=== PATIENT | male | born 1945 | race Caucasian/White ===

== ENCOUNTER 2018-11-04 10:21 | Observation (INO) | payer MEDICARE, SELFPAY ==
[2018-11-04] VITALS (13 sets, daily range): BP systolic 116–188; BP diastolic 64–83; PULSE 63–89; RESP 13–20; TEMP 36.4–36.8; O2SAT 92–99; BMI 27.0
--- NOTE | 2018-11-04 | DI.ECHO.S_ITS ---
[facility] +---------+ : : [address] : : : : [id number] : : : : Phone: [phone]+ Echocardiogram Report + + :Name: JOE MARKHAM Study Date: 11/05/2018 Height: 72 in : :[facility] Exam Location: IS Weight: 199 lb : : Gender: Male BSA: 2.1 m2 : :: 1945 Age: 73 yrs BP: 141/81 mmHg: :Reason For Study: CHEST PAIN : : Performed By: Del Grossman : :Referring: CAMERON OCASIO : + + Interpretation Summary The left ventricle is normal in size. The ejection fraction is estimated to be 60-65%. There are no focal wall motion abnormalities. The right ventricle is normal in size and function. The right ventricular systolic pressure is estimated to be at least 24 mmHg based on an estimated right atrial pressure of 3 mm Hg. There is mild to moderate aortic regurgitation. The ascending aorta is mildly enlarged. There is no prior echocardiogram noted for this patient. Procedure: A two-dimensional transthoracic echocardiogram with color flow and Doppler was performed. The study quality was technically adequate. There is no prior echocardiogram noted for this patient. The patient was in normal sinus rhythm during the exam. Left Ventricle: The left ventricle is normal in size. There is normal left ventricular wall thickness. The ejection fraction is estimated to be 60-65%. There are no focal wall motion abnormalities. Diastolic parameters suggest a relaxation abnormality of the left ventricle, consistent with probable normal filling pressures. Right Ventricle: The right ventricle is normal in size and function. Atria: The left atrium is mildly dilated. Right atrial size is normal. There is no Doppler evidence for an interatrial shunt. Mitral Valve: The mitral valve is normal in structure and function. There is no mitral valve stenosis. There is mild mitral regurgitation. Aortic Valve: The aortic valve is trileaflet. The aortic valve opens well. There is no aortic valve stenosis. There is mild to moderate aortic regurgitation. There is an eccentric jet of aortic insufficiency directed against the anterior mitral leaflet. Tricuspid Valve: The tricuspid valve is normal in structure and function. There is trace tricuspid regurgitation. The right ventricular systolic pressure is estimated to be at least 24 mmHg based on an estimated right atrial pressure of 3 mm Hg. Pulmonic Valve: The pulmonic valve is normal in structure and function. There is trace pulmonic regurgitation. Great Vessels: The aortic root is normal size. The ascending aorta is mildly enlarged. The aortic arch is mildly enlarged. The pulmonary artery is normal size. The IVC is of normal diameter and collapses greater than 50% with a sniff. This suggests a low right atrial pressure of 3 mm Hg. Pericardium/ Pleura There is no pericardial effusion. There is no pleural effusion. MMode/2D Measurements & Calculations LVIDd: 4.1 cm LVOT diam: 2.7 cm LVIDs: 3.1 cm Ao root diam: 4.0 cm FS: 23.2 % Aortic Jxn: 3.0 cm EPSS: 2.0 cm asc Aorta Diam: 3.9 cm IVSd: 1.5 cm Ao Arch Diam (Prox Trans): 3.2 cm LVPWd: 1.2 cm LV tanner. diameter/BSA (cm/m^2): 1.9 LV sys. diameter/BSA (cm/m^2): 1.5 LA dimension: 4.8 cm RA long axis: 4.8 cm LA A2 area: 25.1 cm2 RA area: 18.5 cm2 LA A4 area: 25.5 cm2 RA vol: 60.0 ml LA length (vol): 6.9 cm RA : 28.2 ml/m2 LA vol: 78.7 ml IVC diam: 2.1 cm LA vol index: 37.0 ml/m2 RVD1 (basal): 3.4 cm RVD2 (mid): 3.9 cm Doppler Measurements & Calculations Ao V2 max: 147.0 cm/sec LVOT Max Reid: 98.6 cm/sec Ao V2 mean: 112.2 cm/sec LV V1 max P.9 mmHg Ao max P.6 mmHg LV V1 VTI: 19.7 cm Ao mean P.3 mmHg ANIBAL(I,D): 3.4 cm2 Ao V2 VTI: 31.7 cm ANIBAL(V,D): 3.7 cm2 sev ratio: 0.62 ANIBAL indexed to BSA (cm^2/m^2): 1.6 AI P1/2t: 833.6 msec AI dec slope: 148.8 cm/sec2 MV E max reid: 32.0 cm/sec TR max reid: 228.7 cm/sec MV A max reid: 61.0 cm/sec TR max P.9 mmHg MV E/A: 0.52 PA V2 max: 64.9 cm/sec Med Peak E' Reid: 3.9 cm/sec PA V2 mean: 47.0 cm/sec E/E' med: 8.1 PA mean P.98 mmHg Lat Peak E' Reid: 6.8 cm/sec PA pr(Accel): 49.1 mmHg E/E' lat: 4.7 E/e' average: 6.4 MV dec time: 0.12 sec SV([facility]): 108.9 ml Electronically signed by: Song Haines M.D. on Reading Physician:11/05/2018 01:45 PM
--- NOTE | 2018-11-04 10:33 | DI.RAD.S_ITS ---
PROCEDURE: XR CHEST 1V INDICATIONS: chest pain TECHNIQUE: One view of the chest was acquired. COMPARISON: [facility], , CHEST 2 VIEW, 08/04/2013, 12:30. FINDINGS: Surgical changes and devices: None. Lungs and pleura: Lungs are clear. No pleural effusions or pneumothorax. Mediastinum: Mediastinal contours appear normal. Heart size appears borderline enlarged. Bones and chest wall: No suspicious bony lesions. Overlying soft tissues appear unremarkable. IMPRESSION: 1. No definite acute cardiopulmonary disease. 2. Borderline enlargement of the heart contours which may be due to portable technique. Dictated by: Ernie Petty M.D. on 11/04/2018 at 11:39 Approved by: Ernie Petty M.D. on 11/04/2018 at 11:40
[2018-11-04] MEDS: ASPIRIN 81 MG TAB 324 MG PO (10:35)
--- NOTE | 2018-11-04 10:44 | ED.CHESTPAIN ---
HPI - Chest Pain General Chief Complaint: Chest Pain Stated Complaint: chest pain,sweating,almost fainted Time Seen by Provider: 11/04/18 10:34 Source: patient Mode of arrival: ambulatory Limitations: no limitations History of Present Illness HPI narrative: 73-year-old male comes to the emergency department with complaint of chest pressure that started about 930 this morning. Patient states he felt like he got hit in the chest he had pain in his anterior chest it did not radiate elsewhere. It was substernal. He felt short of breath, dizzy and got very sweaty. He lasted about 20 minutes and then started to ease. He works at a [employer] he has been working 12-13 hour days for the last 20 days in a row. He was carryng some 3, 4 x 12 boards which were somewhat heavy per patient. Patient states that he still feels a little sore in his chest but the shortness of breath in all the other symptoms have resolved. He does take lisinopril 40 mg, simvastatin 20 mg and hydrochlorothiazide 12.5 mg daily. He does not take an aspirin daily. He has never had a stress test or heart catheterization. 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 Patient does not smoke, he does not drink alcohol or use any illicit drugs. He does not have any siblings, his dad at the age 89 from congestive heart failure and his mom stated age 96. [address] Ash for his primary care. Related Data Home Medications Medication Instructions Recorded Confirmed multivitamin 1 tab PO DAILY #0 03/11/07 11/04/18 CoQ-10 300 mg PO DAILY 11/04/18 11/04/18 Collagen 500 mg PO DAILY 11/04/18 11/04/18 Fish Oil 1,400 mg PO DAILY 11/04/18 11/04/18 ascorbic acid (vitamin C) [Vitamin 500 mg PO DAILY 11/04/18 11/04/18 C] cholecalciferol (vitamin D3) 1,000 unit PO DAILY 11/04/18 11/04/18 [Vitamin D3] folic acid 0.4 mg PO DAILY 11/04/18 11/04/18 ginkgo biloba 120 mg PO BID 11/04/18 11/04/18 hydrochlorothiazide 12.5 mg PO DAILY 11/04/18 11/04/18 lisinopril 40 mg PO QPM 11/04/18 11/04/18 omeprazole 20 mg PO Q OTHER DAY 11/04/18 11/04/18 simvastatin 20 mg PO QPM 11/04/18 11/04/18 turmeric 450 mg PO DAILY 11/04/18 11/04/18 Allergies Allergy/AdvReac Type Severity Reaction Status Date / Time No Known Drug Allergies Allergy Verified 11/04/18 10:31 Review of Systems Review of Systems ROS Unobtainable: All systems reviewed & are unremarkable except as noted in HPI and below Constitutional Denies chills, Reports excessive sweating, Denies fever(s), Denies lethargy and Denies weakness Cardiovascular Reports chest pain, Reports diaphoresis, Denies syncope, Denies edema, Denies irregular heart rhythm, Reports lightheadedness, Denies radiating jaw, neck or arm pain, Denies palpitations, Reports dyspnea, Denies dyspnea on exertion and Denies orthopnea Respiratory Denies change in phlegm color, Denies chest congestion, Denies cough, Reports dyspnea, Denies dyspnea on exertion and Denies wheezing Gastrointestinal Gastrointestinal: Denies abdominal pain, Denies change in bowel habits, Denies diarrhea, Denies nausea and Denies vomiting Musculoskeletal Denies back pain Integumentary/Breasts Denies rash Neurologic Denies syncope and Denies weakness Endocrine Reports excessive sweating and Denies palpitations Allergic/Immunologic Denies wheezing [facility] Medical History Dyslipidemia (Chronic) Finger amputation, 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 HEENT: Head normocephalic, atraumatic, EOMI, pupils reactive, face symmetric, moist mucous membranes NECK: Supple, full range of motion CARDIOVASCULAR: Regular rate and rhythm without murmurs, rubs or gallops. Nontender with palpation of the anterior chest. No rashes or skin changes. RESPIRATORY: Breath sounds equal bilaterally, no wheezes rales or rhonchi. ABDOMEN: Soft, nontender. Normoactive bowel sounds all 4 quadrants. No guarding or rebound, rigidity, no mass : No CVA tenderness EXTREMITIES: Normal range of motion, no clubbing or edema. Neurovascularly intact NEUROLOGICAL: Cranial nerves II through XII grossly intact. Moving all extremities SKIN: Warm, dry, no petechiae, no rashes or lesions. Initial Vital Signs Initial Vital Signs: Vital Signs Temperature 98.2 F 11/04/18 10:21 Pulse Rate 89 11/04/18 10:21 Respiratory Rate 18 11/04/18 10:21 Blood Pressure 173/78 H 11/04/18 10:21 Pulse Oximetry 99 11/04/18 10:21 Scores HEART Score Heart Score history: Highly Suspicious Heart Score EKG: Non-Specific repolarization disturbance Heart Score Age: > or = 65 years old Heart Score risk factors: 1-2 risk factors Heart Score troponin: < or = to normal limit Heart Score Total: 6 Course Orders Ordered: ED Orders 11/04/18 10:33 XR chest 1V Stat EKG-12 Lead Stat 11/04/18 10:41 Complete Blood Count AUTO DIFF Stat Comprehensive Metabolic Panel Stat Lipase Stat Partial Thromboplastin Time Stat Prothrombin Time INR Stat Troponin & CK Cardiac Panel Stat Nitroglycerin (Nitrostat) 0.4 mg SL [id number] PRN PRN Reason: Chest Pain Last Admin: 11/04/18 11:49 Dose: 0.4 mg Admin: 11/04/18 11:20 Dose: 0.4 mg Discontinued Medications Aspirin (Aspirin Chew) 324 mg PO NOW ONE Stop: 11/04/18 10:34 Last Admin: 11/04/18 10:35 Dose: 324 mg Vital Signs - 8 hr 11/04/18 11:20 11/04/18 11:45 11/04/18 11:49 Temperature Pulse Rate 80 84 80 Respiratory Rate Blood Pressure 146/76 H 118/74 188/64 H Blood Pressure [Right Arm] Pulse Oximetry 11/04/18 12:12 11/04/18 12:20 11/04/18 12:44 Temperature Pulse Rate 82 80 73 Respiratory Rate 17 16 Blood Pressure 135/78 Blood Pressure [Right Arm] 126/76 116/75 Pulse Oximetry 95 97 11/04/18 13:09 11/04/18 13:48 11/04/18 15:10 Temperature 97.6 F Pulse Rate 71 69 67 Respiratory Rate 13 18 16 Blood Pressure 124/71 141/81 H Blood Pressure [Right Arm] 121/70 Pulse Oximetry 96 98 92 MDM - Chest Pain Lab Data Attestation: I reviewed the patient's lab results. Result diagrams: 11/04/18 10:41 11/04/18 10:41 Lab Results 11/04/18 11/04/18 11/04/18 Range/Units 10:41 10:41 10:41 WBC 5.3 (4.5-11.0) X10^3/uL RBC 4.43 L (4.5-5.9) X10^6/uL Hgb 14.1 (13.5-17.5) g/dL Hct 41.0 (41-53) % MCV 92.7 (80-100) fL MCH 31.9 (26-34) PG MCHC 34.4 (30-36) % RDW 12.8 (11.6-14.8) % Plt Count 206 (150-400) X10^3/uL Neut % (Auto) 56.3 (50-75) % Lymph % (Auto) 26.7 (25-40) % Sharp % (Auto) 10.8 (3-14) % Eos % (Auto) 5.1 H (2-4) % Baso % (Auto) 1.1 (0-2) % Neut # (Auto) 3000 (0495-1697) /uL Lymph # (Auto) 1400 (4230-0581) /uL Sharp # (Auto) 600 (0-900) /uL Eos # (Auto) 300 (0-450) /uL Baso # (Auto) 100 (0-100) /uL PT 11.6 (10.1-12.7) SECONDS INR 1.0 (0.9-1.3) APTT 22 L (26.4-36.2) SECONDS Sodium 138 (137-145) mmol/L Potassium 3.5 (3.4-5.1) mmol/L Chloride 104 (98-107) mmol/L Carbon Dioxide 26 (22-32) mmol/L BUN 15 (9-20) mg/dL Creatinine 0.80 (0.66-1.25) mg/dL Estimated GFR > 60.0 (>60) mL/min BUN/Creatinine Ratio 18.8 (6-22) Glucose 124 H (80-110) mg/dL Calcium 8.8 (8.4-10.2) mg/dL Total Bilirubin 0.7 (0.2-1.3) mg/dL AST 111 H (17-59) IU/L ALT 56 (21-72) IU/L Alkaline Phosphatase 61 (38-126) U/L Total Creatine Kinase 109 (55-170) U/L CK-MB (CK-2) 2.28 (<2.37) ng/mL CK-MB (CK-2) Rel Index 2.1 (1.5-5.0) % Troponin I < 0.012 (0.01-0.034) ng/mL Total Protein 6.3 (6.3-8.2) g/dL Albumin 3.9 (3.5-5.0) g/dL Globulin 2.4 (1.7-4.1) g/dL Albumin/Globulin Ratio 1.6 (1.0-2.8) Lipase 35 (23-300) U/L Imaging Data Chest x-ray: Radiologist's impression: [address] [address] XRay Report Signed Patient: Paul Vincent LMR#: [id number] : 3Acct:[id number] Age/Sex: 73 / MDate of Service: 11/04/18 Loc: ED Accession Number: [id number] Procedure: XR chest 1V Ordering Provider: Ruby Maria D.O. PROCEDURE: XR CHEST 1V INDICATIONS: chest pain TECHNIQUE: One view of the chest was acquired. COMPARISON: [facility], , CHEST 2 VIEW, 08/04/2013, 12:30. FINDINGS: Surgical changes and devices: None. Lungs and pleura: Lungs are clear. No pleural effusions or pneumothorax. Mediastinum: Mediastinal contours appear normal. Heart size appears borderline enlarged. Bones and chest wall: No suspicious bony lesions. Overlying soft tissues appear unremarkable. IMPRESSION: 1. No definite acute cardiopulmonary disease. 2. Borderline enlargement of the heart contours which may be due to portable technique. Dictated by: Ernie Petty M.D. on 11/04/2018 at 11:39 Approved by: Ernie Petty M.D. on 11/04/2018 at 11:40 ECG Data Attestation: I personally reviewed and interpreted this ECG as follows: Interpretation: Sinus rhythm with first-degree AV block ventricular rate 86 P are interval is 218 QRS is 88 and QTC is 405. No ST elevation is appreciated. Patient has Q-waves in 1 and aVL as well as V2 through V6 patient appears to have some ST depression in V4 V5 MDM Narrative Medical decision making narrative: Spoke with Dr. Henderson, she accepts for chest pain observation. Patient has some ST depression in V 4,5,6. No elevation appreciated. Lots of PVCs. The patient's troponin is negative, he has been chest pain free here during his stay in the department. Initially he was a little sore but that has totally resolved. Patient vital signs have been stable. patient's description of his chest pain, are concerning for cardiac or coronary artery disease. Patient's troponin is negative. Discharge Plan Departure Patient Disposition: Admitted as Observation Clinical Impression: Chest pain Discharge Date/Time: 11/04/18 14:35 Interventions: ED Discharge Assessment Last Done: 11/04/18 13:54 Admit Date/Time: 11/04/18 13:07 Admit Provider: Delicia Henderson
--- NOTE | 2018-11-04 10:50 | ED_ITS ---
HPI - Chest Pain General Chief Complaint: Chest Pain Stated Complaint: chest pain,sweating,almost fainted Time Seen by Provider: 11/04/18 10:34 Source: patient Mode of arrival: ambulatory Limitations: no limitations History of Present Illness HPI narrative: 73-year-old male comes to the emergency department with complaint of chest pressure that started about 930 this morning. Patient states he felt like he got hit in the chest he had pain in his anterior chest it did not radiate elsewhere. It was substernal. He felt short of breath, dizzy and got very sweaty. He lasted about 20 minutes and then started to ease. He works at a [employer] he has been working 12-13 hour days for the last 20 days in a row. He was carryng some 3, 4 x 12 boards which were somewhat heavy per patient. Patient states that he still feels a little sore in his chest but the shortness of breath in all the other symptoms have resolved. He does take lisinopril 40 mg, simvastatin 20 mg and hydrochlorothiazide 12.5 mg daily. He does not take an aspirin daily. He has never had a stress test or heart catheterization. 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 Patient does not smoke, he does not drink alcohol or use any illicit drugs. He does not have any siblings, his dad at the age 89 from congestive heart failure and his mom stated age 96. [address] Ash for his primary care. Related Data Home Medications Medication Instructions Recorded Confirmed multivitamin 1 tab PO DAILY #0 03/11/07 11/04/18 CoQ-10 300 mg PO DAILY 11/04/18 11/04/18 Collagen 500 mg PO DAILY 11/04/18 11/04/18 Fish Oil 1,400 mg PO DAILY 11/04/18 11/04/18 ascorbic acid (vitamin C) [Vitamin 500 mg PO DAILY 11/04/18 11/04/18 C] cholecalciferol (vitamin D3) 1,000 unit PO DAILY 11/04/18 11/04/18 [Vitamin D3] folic acid 0.4 mg PO DAILY 11/04/18 11/04/18 ginkgo biloba 120 mg PO BID 11/04/18 11/04/18 hydrochlorothiazide 12.5 mg PO DAILY 11/04/18 11/04/18 lisinopril 40 mg PO QPM 11/04/18 11/04/18 omeprazole 20 mg PO Q OTHER DAY 11/04/18 11/04/18 simvastatin 20 mg PO QPM 11/04/18 11/04/18 turmeric 450 mg PO DAILY 11/04/18 11/04/18 Allergies Allergy/AdvReac Type Severity Reaction Status Date / Time No Known Drug Allergies Allergy Verified 11/04/18 10:31 Review of Systems Review of Systems ROS Unobtainable: All systems reviewed & are unremarkable except as noted in HPI and below Constitutional Denies chills, Reports excessive sweating, Denies fever(s), Denies lethargy and Denies weakness Cardiovascular Reports chest pain, Reports diaphoresis, Denies syncope, Denies edema, Denies irregular heart rhythm, Reports lightheadedness, Denies radiating jaw, neck or arm pain, Denies palpitations, Reports dyspnea, Denies dyspnea on exertion and Denies orthopnea Respiratory Denies change in phlegm color, Denies chest congestion, Denies cough, Reports dyspnea, Denies dyspnea on exertion and Denies wheezing Gastrointestinal Gastrointestinal: Denies abdominal pain, Denies change in bowel habits, Denies diarrhea, Denies nausea and Denies vomiting Musculoskeletal Denies back pain Integumentary/Breasts Denies rash Neurologic Denies syncope and Denies weakness Endocrine Reports excessive sweating and Denies palpitations Allergic/Immunologic Denies wheezing FOR[facility]LY [facility] Medical History Dyslipidemia (Chronic) Finger amputation, 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 HEENT: Head normocephalic, atraumatic, EOMI, pupils reactive, face symmetric, moist mucous membranes NECK: Supple, full range of motion CARDIOVASCULAR: Regular rate and rhythm without murmurs, rubs or gallops. Nontender with palpation of the anterior chest. No rashes or skin changes. RESPIRATORY: Breath sounds equal bilaterally, no wheezes rales or rhonchi. ABDOMEN: Soft, nontender. Normoactive bowel sounds all 4 quadrants. No guarding or rebound, rigidity, no mass : No CVA tenderness EXTREMITIES: Normal range of motion, no clubbing or edema. Neurovascularly intact NEUROLOGICAL: Cranial nerves II through XII grossly intact. Moving all extremities SKIN: Warm, dry, no petechiae, no rashes or lesions. Initial Vital Signs Initial Vital Signs: Vital Signs Temperature 98.2 F 11/04/18 10:21 Pulse Rate 89 11/04/18 10:21 Respiratory Rate 18 11/04/18 10:21 Blood Pressure 173/78 H 11/04/18 10:21 Pulse Oximetry 99 11/04/18 10:21 Scores HEART Score Heart Score history: Highly Suspicious Heart Score EKG: Non-Specific repolarization disturbance Heart Score Age: > or = 65 years old Heart Score risk factors: 1-2 risk factors Heart Score troponin: < or = to normal limit Heart Score Total: 6 Course Orders Ordered: ED Orders 11/04/18 10:33 XR chest 1V Stat EKG-12 Lead Stat 11/04/18 10:41 Complete Blood Count AUTO DIFF Stat Comprehensive Metabolic Panel Stat Lipase Stat Partial Thromboplastin Time Stat Prothrombin Time INR Stat Troponin & CK Cardiac Panel Stat Nitroglycerin (Nitrostat) 0.4 mg SL [id number] PRN PRN Reason: Chest Pain Last Admin: 11/04/18 11:49 Dose: 0.4 mg Admin: 11/04/18 11:20 Dose: 0.4 mg Discontinued Medications Aspirin (Aspirin Chew) 324 mg PO NOW ONE Stop: 11/04/18 10:34 Last Admin: 11/04/18 10:35 Dose: 324 mg Vital Signs - 8 hr 11/04/18 11:20 11/04/18 11:45 11/04/18 11:49 Temperature Pulse Rate 80 84 80 Respiratory Rate Blood Pressure 146/76 H 118/74 188/64 H Blood Pressure [Right Arm] Pulse Oximetry 11/04/18 12:12 11/04/18 12:20 11/04/18 12:44 Temperature Pulse Rate 82 80 73 Respiratory Rate 17 16 Blood Pressure 135/78 Blood Pressure [Right Arm] 126/76 116/75 Pulse Oximetry 95 97 11/04/18 13:09 11/04/18 13:48 11/04/18 15:10 Temperature 97.6 F Pulse Rate 71 69 67 Respiratory Rate 13 18 16 Blood Pressure 124/71 141/81 H Blood Pressure [Right Arm] 121/70 Pulse Oximetry 96 98 92 MDM - Chest Pain Lab Data Attestation: I reviewed the patient's lab results. Result diagrams: 11/04/18 10:41 11/04/18 10:41 Lab Results 11/04/18 11/04/18 11/04/18 Range/Units 10:41 10:41 10:41 WBC 5.3 (4.5-11.0) X10^3/uL RBC 4.43 L (4.5-5.9) X10^6/uL Hgb 14.1 (13.5-17.5) g/dL Hct 41.0 (41-53) % MCV 92.7 (80-100) fL MCH 31.9 (26-34) PG MCHC 34.4 (30-36) % RDW 12.8 (11.6-14.8) % Plt Count 206 (150-400) X10^3/uL Neut % (Auto) 56.3 (50-75) % Lymph % (Auto) 26.7 (25-40) % [place] % (Auto) 10.8 (3-14) % Eos % (Auto) 5.1 H (2-4) % Baso % (Auto) 1.1 (0-2) % Neut # (Auto) 3000 (0290-5496) /uL Lymph # (Auto) 1400 (2118-0264) /uL [place] # (Auto) 600 (0-900) /uL Eos # (Auto) 300 (0-450) /uL Baso # (Auto) 100 (0-100) /uL PT 11.6 (10.1-12.7) SECONDS INR 1.0 (0.9-1.3) APTT 22 L (26.4-36.2) SECONDS Sodium 138 (137-145) mmol/L Potassium 3.5 (3.4-5.1) mmol/L Chloride 104 (98-107) mmol/L Carbon Dioxide 26 (22-32) mmol/L BUN 15 (9-20) mg/dL Creatinine 0.80 (0.66-1.25) mg/dL Estimated GFR > 60.0 (>60) mL/min BUN/Creatinine Ratio 18.8 (6-22) Glucose 124 H (80-110) mg/dL Calcium 8.8 (8.4-10.2) mg/dL Total Bilirubin 0.7 (0.2-1.3) mg/dL AST 111 H (17-59) IU/L ALT 56 (21-72) IU/L Alkaline Phosphatase 61 (38-126) U/L Total Creatine Kinase 109 (55-170) U/L CK-MB (CK-2) 2.28 (<2.37) ng/mL CK-MB (CK-2) Rel Index 2.1 (1.5-5.0) % Troponin I < 0.012 (0.01-0.034) ng/mL Total Protein 6.3 (6.3-8.2) g/dL Albumin 3.9 (3.5-5.0) g/dL Globulin 2.4 (1.7-4.1) g/dL Albumin/Globulin Ratio 1.6 (1.0-2.8) Lipase 35 (23-300) U/L Imaging Data Chest x-ray: Radiologist's impression: [address] [address] XRay Report Signed Patient: Paul Vincent LMR#: [id number] : 3Acct:[id number] Age/Sex: 73 / MDate of Service: 11/04/18 Loc: ED Accession Number: [id number] Procedure: XR chest 1V Ordering Provider: Ruby Maria D.O. PROCEDURE: XR CHEST 1V INDICATIONS: chest pain TECHNIQUE: One view of the chest was acquired. COMPARISON: [facility], , CHEST 2 VIEW, 08/04/2013, 12:30. FINDINGS: Surgical changes and devices: None. Lungs and pleura: Lungs are clear. No pleural effusions or pneumothorax. Mediastinum: Mediastinal contours appear normal. Heart size appears borderline enlarged. Bones and chest wall: No suspicious bony lesions. Overlying soft tissues appear unremarkable. IMPRESSION: 1. No definite acute cardiopulmonary disease. 2. Borderline enlargement of the heart contours which may be due to portable technique. Dictated by: Ernie Petty M.D. on 11/04/2018 at 11:39 Approved by: Ernie Petty M.D. on 11/04/2018 at 11:40 ECG Data Attestation: I personally reviewed and interpreted this ECG as follows: Interpretation: Sinus rhythm with first-degree AV block ventricular rate 86 P are interval is 218 QRS is 88 and QTC is 405. No ST elevation is appreciated. Patient has Q-waves in 1 and aVL as well as V2 through V6 patient appears to have some ST depression in V4 V5 MDM Narrative Medical decision making narrative: Spoke with Dr. Henderson, she accepts for chest pain observation. Patient has some ST depression in V 4,5,6. No elevation appreciated. Lots of PVCs. The patient's troponin is negative, he has been chest pain free here during his stay in the department. Initially he was a little sore but that has totally resolved. Patient vital signs have been stable. patient's description of his chest pain, are concerning for cardiac or coronary artery disease. Patient's troponin is negative. Discharge Plan Departure Patient Disposition: Admitted as Observation Clinical Impression: Chest pain Discharge Date/Time: 11/04/18 14:35 Interventions: ED Discharge Assessment Last Done: 11/04/18 13:54 Admit Date/Time: 11/04/18 13:07 Admit Provider: Delicia Henderson
[2018-11-04 10:57] LABS: Add Manual Diff / Slide Review NO; Basophils Absolute Auto 100 /uL (0-100); Basophils Percent Auto 1.1 % (0-2); Eosinophils Absolute Auto 300 /uL (0-450); Eosinophils Percent Auto 5.1 % (2-4); Hemoglobin 14.1 g/dL (13.5-17.5); Lymphocytes Absolute Auto 1400 /uL (1100-4500); Lymphocytes Percent Auto 26.7 % (25-40); Mean Corpuscular HGB Conc 34.4 % (30-36); Mean Corpuscular Hemoglobin 31.9 PG (26-34); Mean Corpuscular Volume 92.7 fL (80-100); Monocytes Absolute Auto 600 /uL (0-900); Monocytes Percent Auto 10.8 % (3-14); Neutrophils Absolute Auto 3000 /uL (1500-7000); Neutrophils Percent Auto 56.3 % (50-75); Platelet Count 206 X10^3/uL (150-400); Red Blood Cell Count 4.43 X10^6/uL (4.5-5.9); Red Cell Distribution Width 12.8 % (11.6-14.8); White Blood Cell Count 5.3 X10^3/uL (4.5-11.0)
[2018-11-04 11:01] LABS: Prothrombin Time 11.6 SECONDS (10.1-12.7)
[2018-11-04 11:03] LABS: PTT Partial Thromboplastin Tim 22 SECONDS (26.4-36.2)
[2018-11-04 11:08] LABS: Alanine Aminotransferase 56 IU/L (21-72); Albumin 3.9 g/dL (3.5-5.0); Albumin Globulin Ratio 1.6 (1.0-2.8); Alkaline Phosphatase 61 U/L (38-126); Aspartate Aminotransferase 111 IU/L (17-59); BUN Creatinine Ratio 18.8 (6-22); Bilirubin Total 0.7 mg/dL (0.2-1.3); Blood Urea Nitrogen 15 mg/dL (9-20); Calcium 8.8 mg/dL (8.4-10.2); Carbon Dioxide 26 mmol/L (22-32); Chloride 104 mmol/L (98-107); Creatine Kinase 109 U/L (55-170); Estimated Glomerular Filt Rate > 60.0 mL/min (>60); Globulin 2.4 g/dL (1.7-4.1); Glucose 124 mg/dL (80-110); HEMOLYSIS < 15 (0-50); Lipase 35 U/L (23-300); Potassium 3.5 mmol/L (3.4-5.1); Sodium 138 mmol/L (137-145); Total Protein 6.3 g/dL (6.3-8.2)
[2018-11-04 11:19] LABS: Troponin I < 0.012 ng/mL (0.01-0.034)
[2018-11-04] MEDS: NITROGLYCERIN 0.4 MG SL TAB SL ×2 (11:20→11:49)
[2018-11-04 11:23] LABS: CKMB % Relative Index 2.1 % (1.5-5.0); Creatine Kinase MB 2.28 ng/mL (<2.37)
[2018-11-05 00:27] VITALS: O2SAT 97
--- NOTE | 2018-11-05 00:32 | PC.NURSE ---
2300- Pt admit for chest pain; remains on tele: SR w/ 1st degree AVB. Denies any chest pain or discomfort at this time. Trops negative; moving SBA/independent to bathroom. [place] locked.
--- NOTE | 2018-11-05 05:20 | PM.HP.1 ---
History of Present Illness Date Patient Seen: 11/04/18 Time Patient Seen: 19:45 Chief complaint: chest pain,sweating,almost fainted Narrative: This is a 73-year-old male patient with a history of hypertension, hyperlipidemia and kidney stones who presents to the ER with sudden onset of substernal chest pain. 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 this morning he was throwing large 3 ft pieces of wood weighing 25-30 lb when he experienced a sudden onset of substernal heavy pressure-like pain with associated shortness of breath stating he felt like he could not catch his breath and diaphoresis. There is no radiation of the pain and he felt no palpitations. He has no cardiac history but does acknowledge having a stress test done 15 years ago but does not recall the reason and indicates that he has never felt pain like this before. At the time the patient arrived in the ER he indicates that the pain was feeling much better. Patient additionally endorses 3 weeks ago having flu or cold symptoms of a cough and fevers that he treated with [id number] medications with resolution. Patient denies any complaints of headaches or dizziness nasal congestion or sore throat. He denies palpitations or back pain and has had no nausea or vomiting. Denies abdominal pain diarrhea constipation. He has no difficulty urinating. In the ER his EKG is sinus rhythm without ectopy, with a first-degree AV block with a P are interval of 218 milliseconds, 0.5-1 mm depression laterally in V 4 through V6. There is no prior EKG for comparison. On chest x-ray he has a borderline enlarged heart but no acute cardiopulmonary disease. on laboratory analysis CBCs with normal limits and his chemistries unremarkable every does have an elevated AST 811 and his troponin is found to be negative at less than 0.012. The patient is admitted to the hospital for rule out ACS. 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) Hypertension (Chronic) Surgical History History of cholecystectomy (Acute) Family History (Updated 11/05/18 @ 05:37 by BARBIE Villela) Father Congestive heart failure Mother In good health Social History household members: spouse Smoking Status: Never smoker alcohol intake: never substance use type: does not use Family & Social History Family History Father Congestive heart failure Mother In good health Social History: household members spouse Prior Living Arrangements House Safety & Behavioral: Feels Safe in Current Yes Environment Been Physically Hurt or No Threatened By a Person Suicidal Ideation Description None Suicide Plan Description No Plan Tobacco & Substance use: Smoking Status Never smoker alcohol intake never alcohol intake frequency 0-2 drinks per day Substance Use Type does not use Comment: The patient lives in a single family home with his . His father is headache history CHF in his mother is in good health at 96 years of age. He has no brothers or sisters. 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 He designates his to be surrogate decision maker Med Home Medications Medication Instructions Recorded Confirmed Type multivitamin 1 tab PO DAILY #0 03/11/07 11/04/18 History CoQ-10 300 mg PO DAILY 11/04/18 11/04/18 History Collagen 500 mg PO DAILY 11/04/18 11/04/18 History Fish Oil 1,400 mg PO DAILY 11/04/18 11/04/18 History ascorbic acid (vitamin C) [Vitamin 500 mg PO DAILY 11/04/18 11/04/18 History C] cholecalciferol (vitamin D3) 1,000 unit PO DAILY 11/04/18 11/04/18 History [Vitamin D3] folic acid 0.4 mg PO DAILY 11/04/18 11/04/18 History ginkgo biloba 120 mg PO BID 11/04/18 11/04/18 History hydrochlorothiazide 12.5 mg PO DAILY 11/04/18 11/04/18 History lisinopril 40 mg PO QPM 11/04/18 11/04/18 History omeprazole 20 mg PO Q OTHER DAY 11/04/18 11/04/18 History simvastatin 20 mg PO QPM 11/04/18 11/04/18 History turmeric 450 mg PO DAILY 11/04/18 11/04/18 History Allergies Allergy/AdvReac Type Severity Reaction Status Date / Time No Known Drug Allergies Allergy Verified 11/04/18 10:31 Review of Systems Review of Systems All systems reviewed & are unremarkable except as noted in HPI and below Exam Vital Signs (past 8 hours): - 11/04/18 23:29 11/05/18 00:27 Temperature 97.9 F Pulse Rate 77 Respiratory Rate 18 Blood Pressure 147/81 H Pulse Oximetry 97 97 Oxygen Delivery Method Room Air Narrative Exam Narrative: GENERAL APPEARANCE: well developed, well nourished, afebrile and in no acute distress. HEAD: Normocephalic, atraumatic, no scalp lesions. EYES: pupils equal, round, reactive to light and accommodation, sclera non-icteric, extraocular movement intact . EARS: normal external structures, no ear pain NOSE: sinuses non tender to percussion, no rhinorrhea ORAL CAVITY: mucosa moist without lesions or exudate, palate normal, tongue in midline. THROAT: normal, no erythema, no exudate, pharynx normal, uvula midline. NECK/THYROID: neck supple, no jugular venous distention, no carotid bruit, no thyromegaly, trachea midline. LYMPH NODES: no cervical or supraclavicular lymphadenopathy. SKIN: warm and dry, no suspicious lesions, no rashes, good turgor. HEART: regular rate and rhythm, S1-S2 without murmur, rubs, gallops, brisk capillary refill, no edema LUNGS: clear to auscultation bilaterally, no coarseness crackles or wheezing, no cough present CHEST: Symmetrical movement, no accessory muscle use, no pain to AP and lateral compression. ABDOMEN: Soft, no distention, no epigastric or abdominal tenderness on palpation, no guarding or peritoneal signs, no organomegaly, no flank or suprapubic tenderness BACK: Normal curvature, nontender to palpation, no CVA tenderness on percussion EXTREMITIES: moves all extremities, strength is 5/5 and symmetrical, well perfused. NEUROLOGIC: AAO x4, no focal neurologic deficits, cranial nerves II-XII grossly intact , motor strength normal upper and lower extremities, sensory exam intact to light touch, hearing grossly normal to speech. PSYCH: alert, cognitive function intact, good eye contact, stable mood with congruent affect Objective Labs Result Diagrams: 11/04/18 10:41 11/04/18 10:41 Labs: Laboratory Results - last 24 hr 11/04/18 11/04/18 11/04/18 10:41 10:41 10:41 WBC 5.3 RBC 4.43 L Hgb 14.1 Hct 41.0 MCV 92.7 MCH 31.9 MCHC 34.4 RDW 12.8 Plt Count 206 Neut % (Auto) 56.3 Lymph % (Auto) 26.7 [place] % (Auto) 10.8 Eos % (Auto) 5.1 H Baso % (Auto) 1.1 Neut # (Auto) 3000 Lymph # (Auto) 1400 [place] # (Auto) 600 Eos # (Auto) 300 Baso # (Auto) 100 PT 11.6 INR 1.0 APTT 22 L Sodium 138 Potassium 3.5 Chloride 104 Carbon Dioxide 26 BUN 15 Creatinine 0.80 Estimated GFR > 60.0 BUN/Creatinine Ratio 18.8 Glucose 124 H Calcium 8.8 Total Bilirubin 0.7 AST 111 H ALT 56 Alkaline Phosphatase 61 Total Creatine Kinase 109 CK-MB (CK-2) 2.28 CK-MB (CK-2) Rel Index 2.1 Troponin I < 0.012 Total Protein 6.3 Albumin 3.9 Globulin 2.4 Albumin/Globulin Ratio 1.6 Lipase 35 Assessment & Plan Assessment & Plan narrative: The patient is admitted to the hospital for chest pain and rule out acute coronary syndrome. 1. Chest pain, acute -patient work when he experienced sudden onset of severe substernal chest pain associated with activity, associated symptoms shortness of breath and diaphoresis without radiation or nausea, no prior cardiac history. -pain relieved with rest and greatly diminished by the time the patient arrives in ED. -12 lead EKG reveals sinus rhythm with first-degree AV block and possible slight lateral depression and the lateral V leads. -patient is pain-free and denies shortness of breath, troponin is negative at less than 0.012. -will recheck troponin, obtain echocardiogram and a nuclear med stress test in the morning. 2. Hypertension, chronic -patient is mildly hypertensive at 141/81. -home medications include hydrochlorothiazide 12.5 mg and lisinopril 40 mg which are continued. 3. Hyperlipidemia, chronic -patient is currently on simvastatin 40 mg at bedtime which is continued. -will check a lipid panel The patient is admitted to the hospital late to the severity of his symptoms and the risk for complications. Patient is a admitted as observation with expected length of stay less than 2 midnights.
[2018-11-05 05:36] VITALS: BP 151/83; PULSE 61; RESP 20; TEMP 36.3; O2SAT 99
[2018-11-05 05:54] LABS: Add Manual Diff / Slide Review NO; Basophils Absolute Auto 0 /uL (0-100); Basophils Percent Auto 0.5 % (0-2); Eosinophils Absolute Auto 300 /uL (0-450); Eosinophils Percent Auto 5.2 % (2-4); Hematocrit 44.2 % (41-53); Hemoglobin 15.2 g/dL (13.5-17.5); Lymphocytes Absolute Auto 1200 /uL (1100-4500); Lymphocytes Percent Auto 19.4 % (25-40); Mean Corpuscular HGB Conc 34.3 % (30-36); Mean Corpuscular Hemoglobin 32.1 PG (26-34); Mean Corpuscular Volume 93.6 fL (80-100); Monocytes Absolute Auto 600 /uL (0-900); Monocytes Percent Auto 9.8 % (3-14); Neutrophils Absolute Auto 4100 /uL (1500-7000); Neutrophils Percent Auto 65.1 % (50-75); Platelet Count 219 X10^3/uL (150-400); Red Blood Cell Count 4.73 X10^6/uL (4.5-5.9); Red Cell Distribution Width 13.2 % (11.6-14.8); White Blood Cell Count 6.2 X10^3/uL (4.5-11.0)
[2018-11-05 06:12] LABS: BUN Creatinine Ratio 18.9 (6-22); Blood Urea Nitrogen 17 mg/dL (9-20); Carbon Dioxide 28 mmol/L (22-32); Chloride 103 mmol/L (98-107); Estimated Glomerular Filt Rate > 60.0 mL/min (>60); Glucose 92 mg/dL (80-110); HEMOLYSIS < 15 (0-50); Magnesium 2.1 mg/dL (1.6-2.3); Potassium 3.8 mmol/L (3.4-5.1); Sodium 140 mmol/L (137-145)
--- NOTE | 2018-11-05 06:23 | P.PN_ITS ---
Subjective Date Patient Seen: 11/05/18 Interval history: Paul Vincent is a 73-year-old male with a past medical history significant for hypertension and hyperlipidemia who presented for substernal nonradiating chest pressure with exercise x 20 minutes and relieved with rest with shortness of breath, dizziness and diaphoresis admitted for ACS rule out. The patient is resting in bed comfortably and in no acute distress. He or she denies headache, ear pain, rhinitis, sore throat, cough, shortness of breath, chest pain, abdominal pain, nausea, vomiting, fever, chills, dysuria, diarrhea or constipation. He or she is voiding and eliminating without difficulty. He or she is up ambulating without or with assistance. Exam Vital Signs (past 8 hours): - 11/04/18 23:29 11/05/18 00:27 11/05/18 05:36 Temperature 97.9 F 97.4 F L Pulse Rate 77 61 Respiratory Rate 18 20 Blood Pressure 147/81 H 151/83 H Pulse Oximetry 97 97 99 Oxygen Delivery Method Room Air Narrative Exam Narrative: General: No acute distress, well-developed, well-nourished, appropriately interactive HEENT: Normocephalic, atraumatic. External ears without defect. Pupils equal, round, and reactive to light and accommodation. Anicteric sclerae, moist conjunctivae, and no lid lag. Oropharynx free of erythema and cobble stoning with moist mucosa. Neck: Supple with full range of motion. No jugular venous distension. No bruits. No lymphadenopathy or thyromegaly. Cardiovascular: Regular rate and rhythm without murmurs, rubs, or gallops appreciated Pulmonary: Clear to auscultation bilaterally without crackles, wheezes, or rhonchi. Normal respiratory effort with no use of accessory muscles. Abdomen: Bowel tones present. Soft, nontender, nondistended. No hepatosplenomegaly or masses appreciated. Extremities: No clubbing, cyanosis, or edema. Skin: Normal temperature, turgor, and texture; no rash, ulcers, or subcutaneous nodules appreciated. Neurological: Cranial nerves grossly intact. Normal muscle strength, tone, and bulk. Reflexes, coordination, and sensory function within normal limits. No known gait impairment. Psychiatric: Normal mood and affect. Alert and oriented to person, place, and ti me. Objective Labs Result Diagrams: 11/05/18 05:10 11/05/18 05:10 Labs: Laboratory Results - last 24 hr 11/04/18 11/04/18 11/04/18 10:41 10:41 10:41 WBC 5.3 RBC 4.43 L Hgb 14.1 Hct 41.0 MCV 92.7 MCH 31.9 MCHC 34.4 RDW 12.8 Plt Count 206 Neut % (Auto) 56.3 Lymph % (Auto) 26.7 [place] % (Auto) 10.8 Eos % (Auto) 5.1 H Baso % (Auto) 1.1 Neut # (Auto) 3000 Lymph # (Auto) 1400 [place] # (Auto) 600 Eos # (Auto) 300 Baso # (Auto) 100 PT 11.6 INR 1.0 APTT 22 L Sodium 138 Potassium 3.5 Chloride 104 Carbon Dioxide 26 BUN 15 Creatinine 0.80 Estimated GFR > 60.0 BUN/Creatinine Ratio 18.8 Glucose 124 H Calcium 8.8 Magnesium Total Bilirubin 0.7 AST 111 H ALT 56 Alkaline Phosphatase 61 Total Creatine Kinase 109 CK-MB (CK-2) 2.28 CK-MB (CK-2) Rel Index 2.1 Troponin I < 0.012 Total Protein 6.3 Albumin 3.9 Globulin 2.4 Albumin/Globulin Ratio 1.6 Lipase 35 11/05/18 11/05/18 05:10 05:10 WBC 6.2 RBC 4.73 Hgb 15.2 Hct 44.2 MCV 93.6 MCH 32.1 MCHC 34.3 RDW 13.2 Plt Count 219 Neut % (Auto) 65.1 Lymph % (Auto) 19.4 L [place] % (Auto) 9.8 Eos % (Auto) 5.2 H Baso % (Auto) 0.5 Neut # (Auto) 4100 Lymph # (Auto) 1200 [place] # (Auto) 600 Eos # (Auto) 300 Baso # (Auto) 0 PT INR APTT Sodium 140 Potassium 3.8 Chloride 103 Carbon Dioxide 28 BUN 17 Creatinine 0.90 Estimated GFR > 60.0 BUN/Creatinine Ratio 18.9 Glucose 92 Calcium 9.0 Magnesium 2.1 Total Bilirubin AST ALT Alkaline Phosphatase Total Creatine Kinase CK-MB (CK-2) CK-MB (CK-2) Rel Index Troponin I Total Protein Albumin Globulin Albumin/Globulin Ratio Lipase Assessment & Plan Assessment & Plan narrative: Paul Vincent is a 73-year-old male with a past medical history significant for hypertension and hyperlipidemia who presented for substernal nonradiating chest pressure with exercise x 20 minutes and relieved with rest with shortness of breath, dizziness and diaphoresis admitted for ACS rule out. 1. Acute chest pain, present on admssion. Resolved. -Patient was working when he experienced sudden onset of severe substernal chest pain with associated symptoms of shortness of breath and diaphoresis without radiation, nausea or vomiting. No prior cardiac history. -Ppain relieved with rest and greatly diminished by the time the patient presented in ED. -12 lead EKG reveals sinus rhythm with first-degree AV block and possible slight lateral depression in the lateral V leads. -Initial troponin negative at < 0.012. Monitor serial troponins x 3. -Ordered echocardiogram, pending. -Ordered nuclear med stress test. NPO. 2. Hypertension, chronic, present on admission. Stable. -Patient is mildly hypertensive at 141/81. -Continue hydrochlorothiazide 12.5 mg and lisinopril 40 mg daily. 3. Hyperlipidemia, chronic, present on admission. Stable. -Fasting lipid panel -Continue simvastatin 40 mg daily at bedtime.
[2018-11-05 06:57] LABS: Cholesterol 174 mg/dL (140-199); HDL Cholesterol 42 mg/dL (40-60); LDL Cholesterol Calculated 106 mg/dL (<100); Triglycerides 132 mg/dL (35-150)
[2018-11-05 07:51] LABS: Troponin I 0.019 ng/mL (0.01-0.034)
[2018-11-05 08:35] VITALS: BP 150/84; PULSE 65; RESP 24; TEMP 36.7; O2SAT 99
[2018-11-05] MEDS: hydroCHLOROthiazide 12.5 MG CAPSULE PO (09:01)
[2018-11-05] MEDS: ENOXAPARIN 40 MG/0.4 ML SYRINGE SUBCUT (09:01)
[2018-11-05 11:18] LABS: Creatine Kinase 94 U/L (55-170)
[2018-11-05 11:31] LABS: Troponin I < 0.012 ng/mL (0.01-0.034)
--- NOTE | 2018-11-05 11:33 | CM.DANOTE ---
DCP: Case received, EMR reviewed and met with patient. Introduced self and role. DCP template completed with information currently available. Patient is a 73 year old male who admitted yesterday afternoon to the care of the hospitalist team. PCP: Dr. Ash. Payer: confirmed: [facility] Patient came to hospital via family vehicle secondary to having some chest discomfort and diaphoresis. Patient is here for some testing. Met briefly with patient. Alert and oriented, independent upon ambulation. He stated, he is hoping that he can go home today. Patient lives here in [place] with his spouse, Selena. P: DCP to continue to follow. Patient should be able to go home when he is medically stable. Rebecca Mccabe RN/Chair Trimmer
[2018-11-05 11:45] VITALS: BP 141/81; PULSE 65; RESP 20; TEMP 36.6; O2SAT 97
[2018-11-05 12:55] VITALS: O2SAT 97
--- NOTE | 2018-11-05 14:28 | PM.DS.1 ---
History of Present Illness Date Patient Seen: 11/04/18 Chief complaint: chest pain,sweating,almost fainted Narrative: Written by Waldo VALENTIN: This is a 73-year-old male patient with a history of hypertension, hyperlipidemia and kidney stones who presents to the ER with sudden onset of substernal chest pain. 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 this morning he was throwing large 3 ft pieces of wood weighing 25-30 lb when he experienced a sudden onset of substernal heavy pressure-like pain with associated shortness of breath stating he felt like he could not catch his breath and diaphoresis. There is no radiation of the pain and he felt no palpitations. He has no cardiac history but does acknowledge having a stress test done 15 years ago but does not recall the reason and indicates that he has never felt pain like this before. At the time the patient arrived in the ER he indicates that the pain was feeling much better. Patient additionally endorses 3 weeks ago having flu or cold symptoms of a cough and fevers that he treated with [id number] medications with resolution. Patient denies any complaints of headaches or dizziness nasal congestion or sore throat. He denies palpitations or back pain and has had no nausea or vomiting. Denies abdominal pain diarrhea constipation. He has no difficulty urinating. In the ER his EKG is sinus rhythm without ectopy, with a first-degree AV block with a P are interval of 218 milliseconds, 0.5-1 mm depression laterally in V 4 through V6. There is no prior EKG for comparison. On chest x-ray he has a borderline enlarged heart but no acute cardiopulmonary disease. on laboratory analysis CBCs with normal limits and his chemistries unremarkable every does have an elevated AST 811 and his troponin is found to be negative at less than 0.012. The patient is admitted to the hospital for rule out ACS. Discharge Providers Date of admission: 11/04/18 13:07 Discharge Date: 11/05/18 Primary care physician: Geovanni Ash MD Consults: 11/04/18 20:41 Consult to Discharge Planning Routine Comment: Discharge provider: Gracie Espinal DO Summary Discharge Diagnosis: 1. Acute chest pain, present on admssion. Resolved. 2. Hypertension, chronic, present on admission. Stable. 3. Hyperlipidemia, chronic, present on admission. Stable. Hospital Course: Paul Vincent is a 73-year-old male with a past medical history significant for hypertension and hyperlipidemia who presented for substernal nonradiating chest pressure with exercise x 20 minutes and relieved with rest with shortness of breath, dizziness and diaphoresis admitted for ACS rule out. 1. Acute chest pain, present on admssion. Resolved. -Patient was working when he experienced sudden onset of severe substernal chest pain x 20 minutes with associated symptoms of shortness of breath and diaphoresis without radiation, nausea or vomiting. No prior cardiac history. Pain relieved with rest and greatly diminished by the time the patient presented in ED. -Cardiac risk factors include: Gender, age, stress, hypertension, and hyperlipidemia. No family history. -EKG demonstrated sinus rhythm with first-degree AV block and possible slight lateral depression in the lateral V leads. -Initial troponin negative at < 0.012. Monitored serial troponins x 3 which were negative. -Echocardiogram demonstrated preserved LV and RV function, with mild to moderate aortic regurgitation and mildly dilated ascending aorta. No wall motion abnormalities. -Recommended outpatient stress test. 2. Hypertension, chronic, present on admission. Stable. -Patient is mildly hypertensive at 141/81. -Continued hydrochlorothiazide 12.5 mg and lisinopril 40 mg daily. Continue to monitor closely outpatient. 3. Hyperlipidemia, chronic, present on admission. Stable. -Fasting lipid panel demonstrated: Total cholesterol 174, triglycerides 132, LDL 106 (goal <100), and HDL 42. -Continued simvastatin 20 mg daily at bedtime. Status at Discharge Functional status at discharge: independent ambulation Overall status at discharge: patient is back to baseline Exam Vital Signs (past 8 hours): - 11/05/18 08:35 11/05/18 11:45 11/05/18 12:55 Temperature 98.1 F 97.9 F Pulse Rate 65 65 Respiratory Rate 24 20 Blood Pressure 150/84 H 141/81 H Pulse Oximetry 99 97 97 Oxygen Delivery Method Room Air Narrative Exam Narrative: General: Elderly male standing in room and in no acute distress, appears younger than stated age, well-developed, well-nourished, appropriately interactive. HEENT: Normocephalic, atraumatic. External ears without defect. Pupils equal, round, and reactive to light. Anicteric sclerae, moist conjunctivae, and no lid lag. Oropharynx free of erythema and cobble stoning with moist mucosa. Neck: Supple with full range of motion. No jugular venous distension. No bruits. No lymphadenopathy or thyromegaly. Cardiovascular: Regular rate and rhythm without murmurs, rubs, or gallops appreciated. Pulmonary: Clear to auscultation bilaterally without crackles, wheezes, or rhonchi. Normal respiratory effort with no use of accessory muscles. Abdomen: Soft, bowel sounds present, nontender, nondistended. No hepatosplenomegaly or masses appreciated. Extremities: No clubbing, cyanosis, or edema. Skin: Normal temperature, turgor, and texture; no rash, ulcers, or subcutaneous nodules appreciated. Neurological: Cranial nerves grossly intact. Normal muscle strength, tone, and bulk. Reflexes, coordination, and sensory function within normal limits. No known gait impairment. Psychiatric: Normal mood and affect. Alert and oriented to person, place, and time. Objective Labs Result Diagrams: 11/05/18 05:10 11/05/18 05:10 Labs: Laboratory Results - last 24 hr 11/05/18 11/05/18 11/05/18 05:10 05:10 05:10 WBC 6.2 RBC 4.73 Hgb 15.2 Hct 44.2 MCV 93.6 MCH 32.1 MCHC 34.3 RDW 13.2 Plt Count 219 Neut % (Auto) 65.1 Lymph % (Auto) 19.4 L Kittson % (Auto) 9.8 Eos % (Auto) 5.2 H Baso % (Auto) 0.5 Neut # (Auto) 4100 Lymph # (Auto) 1200 Kittson # (Auto) 600 Eos # (Auto) 300 Baso # (Auto) 0 Sodium 140 Potassium 3.8 Chloride 103 Carbon Dioxide 28 BUN 17 Creatinine 0.90 Estimated GFR > 60.0 BUN/Creatinine Ratio 18.9 Glucose 92 Calcium 9.0 Magnesium 2.1 Total Creatine Kinase CK-MB (CK-2) CK-MB (CK-2) Rel Index Troponin I Triglycerides 132 Cholesterol 174 LDL Cholesterol, Calc 106 H HDL Cholesterol 42 11/05/18 11/05/18 05:10 11:00 WBC RBC Hgb Hct MCV MCH MCHC RDW Plt Count Neut % (Auto) Lymph % (Auto) Kittson % (Auto) Eos % (Auto) Baso % (Auto) Neut # (Auto) Lymph # (Auto) Kittson # (Auto) Eos # (Auto) Baso # (Auto) Sodium Potassium Chloride Carbon Dioxide BUN Creatinine Estimated GFR BUN/Creatinine Ratio Glucose Calcium Magnesium Total Creatine Kinase 94 CK-MB (CK-2) TNP CK-MB (CK-2) Rel Index TNP Troponin I 0.019 < 0.012 Triglycerides Cholesterol LDL Cholesterol, Calc HDL Cholesterol Discharge Plan Discharge Plan Patient Disposition: Home Discharge comment: You are being discharged home. Please follow-up with your PCP, Dr. Ash, in the next 1 week. Recommend to have a cardiac stress test in the near future. Your heart enzymes, EKG, and echocardiogram showed no signs of heart attack or impending heart attack. Please continue your medications as prescribed. You may want to discuss aspirin and increasing your simvastatin with your PCP for preventative measures. Discharge Med Rec/Prescriptions Prescriptions: Continued multivitamin Tablet 1 tab PO DAILY Qty: 0 RF: 0 lisinopril 40 mg tablet 40 mg PO QPM RF: 0 hydrochlorothiazide 12.5 mg tablet 12.5 mg PO DAILY RF: 0 simvastatin 20 mg tablet 20 mg PO QPM RF: 0 omeprazole 20 mg capsule,delayed release(DR/EC) 20 mg PO Q OTHER DAY RF: 0 Collagen capsule 500 mg PO DAILY RF: 0 Fish Oil capsule 1,400 mg PO DAILY RF: 0 turmeric capsule 450 mg PO DAILY RF: 0 folic acid 400 mcg Tablet 0.4 mg PO DAILY RF: 0 ascorbic acid (vitamin C) [Vitamin C] 500 mg Capsule, Extended Release 500 mg PO DAILY RF: 0 cholecalciferol (vitamin D3) [Vitamin D3] 1,000 unit Capsule 1,000 unit PO DAILY RF: 0 ginkgo biloba 120 mg Tablet 120 mg PO BID RF: 0 CoQ-10 300 mg capsule 300 mg PO DAILY RF: 0 Follow up/Referrals: Geovanni Ash MD [Primary Care Provider] - 1 Week Provider Discharge Instructions Diet: Low-fat, Low-sodium and Low-cholesterol Activity: Activity as tolerated. Visit Report/Discharge Packet Instructions: The Mediterranean Diet and Good Health, How stressed are you?, Cardiac Stress Test, Job Stress Linked to the Development of Heart Disease Discharge Data Primary Care Provider: Geovanni Ash V Attending Provider: Delicia Henderson Admmauri Date/Time: 11/04/18 13:07
== END 2018-11-05 15:02 | disposition home or self-care (01) ==
LOC: ED 12:39 → AC 13:08
PROVIDERS: Internal Medicine; Nurse Practitioner Adult Health; Admitting Provider Internal Medicine; Emergency Provider Emergency Medicine; PCP Internal Medicine; Visit Provider Internal Medicine
DX: R07.9 Chest pain, unspecified (principal); I10 Essential (primary) hypertension; E78.5 Hyperlipidemia, unspecified
CPT/HCPCS: 36415; 36591; 71045; 80048; 80053; 80061; 82550; 82553; 83690; 83735; 84484; 85025; 85610; 85730; 93005; 93306; 99283; 99285; G0378; J1650

== ENCOUNTER 2019-07-12 08:27 | Day surgery (SDC) | payer MEDICARE, SELFPAY ==
[2018-11-04 15:10] VITALS: BMI 27.0
--- NOTE | 2019-07-12 | PATH_ITS ---
[facility] Accession Number: [id number] . 01 Material submitted: . colon - ASCENDING COLON POLYP . 02 Diagnosis: Ascending Colon, Polyp, Biopsy: Tubulovillous adenoma. No evidence of malignancy or high-grade dysplasia. MRV 07/13/2019 1120 Local . 02 Electronically signed: . Brittani Crews MD, Pathologist NPI- [id number] . 01 Gross description: . ASCENDING COLON POLYP: Received in formalin are 4 fragment(s) of puri, soft tissue measuring 0.2 x 0.2 x 0.2 cm to 0.4 x 0.4 x 0.4 cm submitted entirely in 1 cassette(s) /[facility] 07/12/20192033 Local . 02 Pathologist provided ICD-10: D12.2 . 02 CPT . 344323 Performed at: 01 [facility] [address], [place], [place] [id number] MD Ernie Stone MD Phone: [phone] Performed at: 02 [facility] [address] [place], [place] [id number] MD Brittani Crews MD Phone: [phone]
--- NOTE | 2019-07-12 08:11 | PM.HP.1 ---
History of Present Illness History of Present Illness Date Patient Seen: 07/12/19 Chief complaint: [id number] Narrative: Patient presented for screening colonoscopy. Patient describes personal history of colon polyps, though we do not have this report available for review. Last colonoscopy 10-15 years ago. 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) History of kidney stones (Acute) Hypertension (Chronic) Surgical History History of cholecystectomy (Acute) Family & Social History Family History Father Congestive heart failure Mother In good health Social History: household members spouse Tobacco & Substance use: Smoking Status Never smoker alcohol intake never alcohol intake frequency 0-2 drinks per day Substance Use Type does not use Meds Home Medications and Allergies Home Medications Medication Instructions Recorded Confirmed Type multivitamin 1 tab PO DAILY #0 03/11/07 07/12/19 History CoQ-10 300 mg PO DAILY 11/04/18 07/12/19 History Collagen 2,000 mg PO BID 11/04/18 07/12/19 History Fish Oil 1,400 mg PO DAILY 11/04/18 07/12/19 History ascorbic acid (vitamin C) [Vitamin 500 mg PO DAILY 11/04/18 07/12/19 History C] cholecalciferol (vitamin D3) 1,000 unit PO DAILY 11/04/18 07/12/19 History [Vitamin D3] folic acid 0.4 mg PO DAILY 11/04/18 07/12/19 History ginkgo biloba 120 mg PO DAILY 11/04/18 07/12/19 History hydrochlorothiazide 12.5 mg PO DAILY 11/04/18 07/12/19 History lisinopril 40 mg PO QPM 11/04/18 07/12/19 History omeprazole 20 mg PO Q OTHER DAY 11/04/18 07/12/19 History simvastatin 20 mg PO QPM 11/04/18 07/12/19 History turmeric 450 mg PO BID 11/04/18 11/04/18 History glucosamine [id number] 1 tab PO DAILY 07/12/19 07/12/19 History Allergies Allergy/AdvReac Type Severity Reaction Status Date / Time No Known Drug Allergies Allergy Verified 11/04/18 10:31 Review of Systems Review of Systems ROS Unobtainable: All systems reviewed & are unremarkable except as noted in HPI and below Exam Const General: cooperative, healthy appearing, comfortable, well developed, well groomed and No acute distress Nutritional Appearance: average body habitus Orientation: alert, awake and oriented x3 Resp Effort & Inspection: normal respiratory effort and able to speak in complete sentences Auscultation: clear to auscultation bilaterally Cardio Rate: regular rate Rhythm: regular rhythm Heart Sounds: S1 normal and S2 normal GI Palpation: soft and No tender Auscultation: normal bowel sounds Extrem Right lower extremity: no edema Left lower extremity: no edema Assessment & Plan Assessment & Plan narrative: 1. Surveillance colonoscopy, personal history of colon polyps -last colonoscopy over 10 years ago - Colonoscopy today, further recommendations to follow
[2019-07-12 09:19] VITALS: BP 156/89; PULSE 83; RESP 16; TEMP 36.2; O2SAT 94; BMI 24.2
[2019-07-12] MEDS: SODIUM CHLORIDE 0.9% 1,000 ML 70 ML IV (09:30)
[2019-07-12] MEDS: fentaNYL 250 MCG/5 ML INJ IV (10:38)
[2019-07-12] MEDS: MIDAZOLAM 5 MG/5 ML VIAL IV (10:38)
[2019-07-12 10:44] VITALS: BP 107/66; PULSE 77; RESP 18; O2SAT 91
--- NOTE | 2019-07-12 10:45 | PM.OP.ENDO ---
Operative Date/Time/Diagnoses Date of procedure: 07/12/19 Time of procedure: 10:18 Procedure Notes Procedure in detail: Surgeon: Saida Garcia DO Procedure: Colonoscopy with polypectomy and placement of hemoclip Preoperative diagnosis: 1. Personal history colon polyps Postoperative diagnosis: 1. 8 mm polyp in the ascending colon, hemoclip placed 2. Diverticulosis is scattered the entire colon 3. Internal hemorrhoids, grade I mild Medications: Conscious sedation using 5 mg IV of Midazolam and 100 mcg IV of Fentanyl Preanesthesia Assessment An H and P was performed/updated and the Px?s ASA class is 2. The procedure was discussed in detail with the patient. The potential risks and complications including infection, bleeding, missed lesions, perforation, need for surgery in case of perforation, prolonged hospital stay, and were explained. A brief question and answer period was allotted and once all questions were answered, informed consent was obtained. The patient was brought back to the procedure room and placed on standard monitoring. The patient?s vital signs were monitored continuously throughout the entire procedure. Prior to starting, a timeout was performed to confirm the patient?s identity, allergies, medications, and procedure. Procedure in detail The patient was placed in left lateral decubitus position and once adequate sedation was obtained a DANYA was performed. The digital rectal examination did not reveal any palpable lesions. The tip of the colonoscope was placed in the anal canal and advanced without difficulty all the way to the cecum which was identified by the appendiceal orifice and the ileocecal valve. Careful examination of all arechiga of the colon was performed with irrigation of any residual stool. - 8 mm sessile polyp noted in the ascending colon, removed with cold snare. This area did have persistent mild bleeding, a hemoclip was placed. No further bleeding was noted after the placement. - Diverticulosis scattered through out the entire colon. - Internal hemorrhoids, grade 1 noted on retroflexion - Otherwise unremarkable colonoscopy to cecum The patient tolerated the procedure well and will be brought back to the recovery area to be discharged once criteria are met. The prep was judged to be adequate to identify polyps greater than 5 mm. The withdrawal time was 10. The total physician intraservice time was 21min. Complications There were no complications and estimated blood loss was minimal. Recommendations: Resume previous diet Continue outPx medications Follow up pathology results Repeat colonoscopy will be determined after pathology results are reviewed An emergency contact number was given to the patient for any complications related to the procedure
[2019-07-12 10:49] VITALS: BP 102/65; PULSE 77; RESP 16; O2SAT 93
[2019-07-12 10:54] VITALS: BP 111/79; PULSE 83; RESP 14; O2SAT 95
[2019-07-12 11:00] VITALS: BP 117/78; PULSE 80; RESP 15; O2SAT 95
[2019-07-12 11:11] VITALS: BP 116/68; PULSE 73; RESP 16; TEMP 36.3; O2SAT 97
== END 2019-07-12 11:23 | disposition home or self-care (01) ==
PROVIDERS: PCP Internal Medicine; Visit Provider Student in an Organized Health Care Education/Training Program
PROC: 0DJD8ZZ Inspection of Lower Intestinal Tract, Via Natural or Artificial Opening Endoscopic (ICD-10-PCS; CPT 45378; principal; 2019-07-12 09:30)
DX: Z12.11 Encounter for screening for malignant neoplasm of colon (principal); Z86.010 Personal history of colon polyps; E78.5 Hyperlipidemia, unspecified; I10 Essential (primary) hypertension; K57.30 Diverticulosis of large intestine without perforation or abscess without bleeding; K64.0 First degree hemorrhoids; D12.2 Benign neoplasm of ascending colon
CPT/HCPCS: 45385; J2250; J3010

== ENCOUNTER 2019-07-26 09:45 | Outpatient (RCR) | payer MEDICARE, SELFPAY ==
[2018-11-04 15:10] VITALS: BMI 27.0
[2019-05-22 17:28] VITALS: BP 158/88
--- NOTE | 2019-05-22 17:45 | PT.OIE ---
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) History of kidney stones (Acute) Hypertension (Chronic) Past Surgical History (Last Reviewed 11/05/18 @ 05:43 by BARBIE Villela) History of cholecystectomy (Acute) Visit Care Team Role Provider Type Geovanni Ash MD Attending Provider Physician Primary Care Provider Specialty: Internal Medicine Address: [address] [place] [address], [facility] Email: [email or web address] [facility] Initial Evaluation PT-OP-A Visit Information Start: 05/22/19 17:27 Freq: Status: Active Protocol: Document 05/22/19 17:28 AW (Rec: 05/22/19 17:42 AW [id number]) Out-Patient Physical Therapy Visit Information Visit Information Visit Type Initial Evaluation Visit Start Time 10:30 Visit Stop Time 11:15 Total Visit Minutes 45 Visit Number 1 Number of DIAMOND CLEANER Visits 0 Evaluation Information Evaluation Date 05/22/19 PT-OP-B Current Condition Start: 05/22/19 17:27 Freq: Status: Active Protocol: Document 05/22/19 17:28 AW (Rec: 05/22/19 17:42 AW [id number]) Current Condition History of Current Condition Onset Date 2 years ago Current Complaints left shoulder pain History of Current Condition El is a right-handed 74-year- old man who has experienced anterior left shoulder pain on a near constant basis for nearly two years. Pain is typically 2-3/10 and has not improved or worsened in that time. 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 He does not use any pain medications; nor does he find any ice or heat helpful. He is unable to sleep on his left side, but otherwise sleeps well. 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 He does have a remote history of right anterior humeral head dislocation for which he underwent closed reduction. 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 Patient Questionnaires Quick Dash- Upper Extremity Quick Dash UE Score 11.4 Quick Dash UE Impairment 1 to 19% Impaired (Score 1-19) OP-PT Pain Assessment Pain Assessment Grid Paper Pain Assessment Grid Completed Yes Location left anterior and posterior shoulder Intensity 3 Scale Used Numeric (1 - 10) Description Aching,Pressure,Tightness Frequency Constant Radiating Location none Other Pain Aggravating Factors overhead work Pain Alleviating Factors None Home Pain Medication Use Pain Medications Used No PT-OP-E Functional Tests Start: 05/22/19 17:27 Freq: Status: Active Protocol: Document 05/22/19 17:28 AW (Rec: 05/23/19 17:45 AW [id number]) Functional Tests Apley's Scratch Test Action 3- Left L1 Action 3- Right T8 PT-OP-F Manual Assessment Start: 05/22/19 17:27 Freq: Status: Active Protocol: Document 05/22/19 17:28 AW (Rec: 05/23/19 17:45 AW [id number]) Manual Assessments Soft Tissue Assessment Soft Tissue Mobility Assessment Increased density of bilateral upper traps, left levator scapula, bilateral cervical paraspinals Joint Mobility Assessment Joint Mobility Assessment Painful glenohumeral inferior glides. No other restrictions noted PT-OP-H Neuro Start: 05/22/19 17:27 Freq: Status: Active Protocol: Document 05/22/19 17:28 AW (Rec: 05/23/19 17:45 AW [id number]) Sensation Evaluation Gross Sensation Gross Sensation WNL Vital Signs Blood Pressure Sitting Blood Pressure (90/60-120/80 mmHg) 158/88 H Blood Pressure Source Manual Cuff,Left Upper Extremity PT-OP-J Posture/Palpation/Skin Start: 05/22/19 17:27 Freq: Status: Active Protocol: Document 05/22/19 17:28 AW (Rec: 05/23/19 17:45 AW [id number]) Posture Evaluation Position Sitting Evaluation View Lateral Head/C-Spine Posture Forward Head T-Spine Posture Increased Kyphosis Thorax Posture Bases Flared,Barrel Chested Shoulder Posture (L) Rounded,(R) Rounded Scapula Posture (L) Neutral,(R) Neutral Arm Posture (L) Internally Rotated,(R) Internally Rotated Comments Posture Comments Pt with forward head, bilateral rounded shoulders, excessive use of left upper traps for UE elevation. Right A/C joint is higher than left which is attibutable to remote history of R humeral head anterior dislocation. Left RC musculature shows atrophy compared with right. PT-OP-K Range of Motion Start: 05/22/19 17:27 Freq: Status: Active Protocol: Document 05/22/19 17:28 AW (Rec: 05/23/19 17:45 AW [id number]) Cervical Spine Range of Motion Cervical Spine Active Percentage Testing Position Sitting Comments All c-spine AROM WNL Shoulder Goniometric Range of Motion Shoulder Left Active Testing Position Sitting Flexion 140 Extension 38 Abduction 130 External Rotation at 90 degrees 58 Abduction Internal Rotation 80 Internal Rotation Behind Back (text) L1 Right Active Testing Position Sitting Flexion 157 Extension 40 Abduction 155 External Rotation at 90 degrees 90 Abduction Internal Rotation 90 Internal Rotation Behind Back (text) T8 Shoulder ROM Limitations Shoulder ROM Limitations Pain Elbow/Forearm Range of Motion Elbow/Forearm ROM Limitations Comments Elbow ROM WNL PT-OP-L Special Tests Start: 05/22/19 17:27 Freq: Status: Active Protocol: Document 05/22/19 17:28 AW (Rec: 05/23/19 17:45 AW [id number]) Special Tests Cervical Spine Special Tests Spurling's Test Test Results negative bilaterally Shoulder Special Tests Load and Shift Test Results negative bilaterally Pisano Slick Impingement Test Results positive left; negative right Comments mildly positive with minimal increase in pain Drop Arm Rotator Cuff Test Results positive left; negative right Comments pt able to maintain position momentarily, but with increased activation of upper traps and report of pain Other Special Tests Special Tests Painful arc: positive left at ~120 degrees Infraspinatus MMT: positive with reproduction of posterior shoulder pain PT-OP-M Strength Start: 05/22/19 17:27 Freq: Status: Active Protocol: Document 05/22/19 17:28 AW (Rec: 05/23/19 17:45 AW [id number]) Shoulder Strength Shoulder Manual Muscle Testing Right Flexion 5 Normal Abduction (C5) 5 Normal External Rotation 5 Normal Horizontal Abduction 5 Normal Left Flexion 4+ Good+ Abduction (C5) 4+ Good+ External Rotation 4+ Good+ Internal Rotation 5 Normal PT-OP-Q Treatments Start: 05/22/19 17:27 Freq: Status: Active Protocol: Document 05/22/19 17:28 AW (Rec: 05/23/19 17:45 AW [id number]) Therapeutic Exercises Sitting Exercises 1 Sitting Exercise Name IT towel stretch Side left Equipment Used towel, strap Reps/Minutes 30 sec hold x 5 Comments cues to not push into painful range Self-Care/Home Management Treatment Education Patient Education Home Exercise Program Other Education HEP: - IR stretch with towel or strap PT-OP-T Assessment and Plan Start: 05/22/19 17:27 Freq: Status: Active Protocol: Document 05/22/19 17:28 AW (Rec: 05/23/19 17:45 AW [id number]) Physical Therapy Assessment Rehab Potential Rehabilitation Potential Good Evaluation Complexity Number of Personal Factors/Comorbidities 1-2 Number of Body Systems Impaired 1-2 Clinical Presentation at Evaluation Stable Impairments Impairments Pain,Posture,ROM,Soft Tissue Mobility,Strength Goals Four Impairment Impaired ROM of left shoulder internal rotation Short Term Goal (STG) Pt will improve pain free left IR AROM from 58 to 68 or more . STG Duration 06/26/19 Asbestos Siding Installer Goal (LTG) Pt will improve pain free left IR AROM to 78 or more LTG Duration 07/31/19 Three Impairment Pt unable to sleep uninterrupted on left side Asbestos Siding Installer Goal (LTG) Pt will report full night's sleep regardless of position LTG Duration 07/31/19 Two Impairment Pt with 3/10 constant pain Short Term Goal (STG) Pt will be able to work 8-hour day with 2/10 pain or less STG Duration 06/26/19 [facility] Goal (LTG) Pt will be able to work 8-hour day with 1/10 pain or less LTG Duration 07/31/19 One Impairment pt with no HEP Short Term Goal (STG) Pt will be independent with HEP for support of services provided in clinic STG Duration 06/19/19 Assessment Summary Assessment El is an active 74 yo man who presents to physical therapy with chronic left shoulder pain which limits his participation in work and ADL' s. His pain is not highly irritable, but is reproducible with drop arm test, painful arc, and external rotation MMT . This cluster indicates rotator cuff pathology. History of working in environments which require repetitive overhead movement predisposed pt to this type of injury. His continued work in the field is likely perpetuating his pain. 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 He would benefit from skilled physical therapy to address these impairments and to improve his ability to participate in his work and ADL's. Physical Therapy Plan Frequency and Duration Frequency of Treatment 1-2x/week Duration of Treatment 10 weeks Plan of Care Start Date 05/22/19 Plan of Care End Date 07/31/19 Therapeutic Interventions Therapeutic Interventions Home Exercise Program,Joint Mobilizations,Manual Therapy, Neuromuscular Re-education, Patient/Caregiver Education, Self-Care/Home Management, Sensory Integration,Soft Tissue Mobilization,Taping, Therapeutic Activities, Therapeutic Exercises Modalities Cold Pack/Ice Massage,Electric Stimulation,Hot Packs, Ultrasound Next Visit Focus/Plan Next Note Type Treatment Note Next Visit Plan - assess scapular mobility and thoracic spine mobility - progress IR stretching, AAROM left shoulder
--- NOTE | 2019-05-22 17:48 | PT.OPPOC ---
Current Diagnoses Pain in unspecified shoulder (05/22/19) Visit Care Team Role Provider Type Geovanni Ash MD Attending Provider Physician Primary Care Provider Specialty: Internal Medicine Address: [address] [place] [address], [id number] Email: [email or web address] Plan Of Care PT-OP-T Assessment and Plan Start: 05/22/19 17:27 Freq: Status: Active Protocol: Document 05/22/19 17:28 AW (Rec: 05/23/19 17:45 AW [id number]) Physical Therapy Assessment Rehab Potential Rehabilitation Potential Good Evaluation Complexity Number of Personal Factors/Comorbidities 1-2 Number of Body Systems Impaired 1-2 Clinical Presentation at Evaluation Stable Impairments Impairments Pain,Posture,ROM,Soft Tissue Mobility,Strength Goals Four Impairment Impaired ROM of left shoulder internal rotation Short Term Goal (STG) Pt will improve pain free left IR AROM from 58 to 68 or more . STG Duration 06/26/19 Intermediate Goal (LTG) Pt will improve pain free left IR AROM to 78 or more LTG Duration 07/31/19 Three Impairment Pt unable to sleep uninterrupted on left side Intermediate Goal (LTG) Pt will report full night's sleep regardless of position LTG Duration 07/31/19 Two Impairment Pt with 3/10 constant pain Short Term Goal (STG) Pt will be able to work 8-hour day with 2/10 pain or less STG Duration 06/26/19 Intermediate Goal (LTG) Pt will be able to work 8-hour day with 1/10 pain or less LTG Duration 07/31/19 One Impairment pt with no HEP Short Term Goal (STG) Pt will be independent with HEP for support of services provided in clinic STG Duration 06/19/19 Assessment Summary Assessment El is an active 74 yo man who presents to physical therapy with chronic left shoulder pain which limits his participation in work and ADL' s. His pain is not highly irritable, but is reproducible with drop arm test, painful arc, and external rotation MMT . This cluster indicates rotator cuff pathology. History of working in environments which require repetitive overhead movement predisposed pt to this type of injury. His continued work in the field is likely perpetuating his pain. 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 He would benefit from skilled physical therapy to address these impairments and to improve his ability to participate in his work and ADL's. Physical Therapy Plan Frequency and Duration Frequency of Treatment 1-2x/week Duration of Treatment 10 weeks Plan of Care Start Date 05/22/19 Plan of Care End Date 07/31/19 Therapeutic Interventions Therapeutic Interventions Home Exercise Program,Joint Mobilizations,Manual Therapy, Neuromuscular Re-education, Patient/Caregiver Education, Self-Care/Home Management, Sensory Integration,Soft Tissue Mobilization,Taping, Therapeutic Activities, Therapeutic Exercises Modalities Cold Pack/Ice Massage,Electric Stimulation,Hot Packs, Ultrasound Next Visit Focus/Plan Next Note Type Treatment Note Next Visit Plan - assess scapular mobility and thoracic spine mobility - progress IR stretching, AAROM left shoulder Plan of Care Dates Plan of Care Start Date 05/22/19 Plan of Care End Date 07/31/19
--- NOTE | 2019-05-30 15:45 | PT.OTN ---
Current Diagnoses Pain in unspecified shoulder (05/30/19) Abnormal posture (05/30/19) Physical Therapy Treatment Note PT-OP-A Visit Information Start: 05/22/19 17:27 Freq: Status: Active Protocol: Document 05/30/19 13:48 HH (Rec: 05/30/19 14:41 HH [id number]) Out-Patient Physical Therapy Visit Information Visit Information Visit Type Treatment Note Visit Start Time 13:48 Visit Stop Time 14:31 Total Visit Minutes 43 Visit Number 1 Number of MONITORING ANALYST Visits 0 PT-OP-B Current Condition Start: 05/22/19 17:27 Freq: Status: Active Protocol: Document 05/22/19 17:28 AW (Rec: 05/22/19 17:42 AW [id number]) Current Condition History of Current Condition Onset Date 2 years ago Current Complaints left shoulder pain History of Current Condition El is a right-handed 74-year- old man who has experienced anterior left shoulder pain on a near constant basis for nearly two years. Pain is typically 2-3/10 and has not improved or worsened in that time. 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 He does not use any pain medications; nor does he find any ice or heat helpful. He is unable to sleep on his left side, but otherwise sleeps well. 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 He does have a remote history of right anterior humeral head dislocation for which he underwent closed reduction. 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 And this is my first PT treatment visit. Patient Reported Progress Same PT-OP-E Functional Tests Start: 05/22/19 17:27 Freq: Status: Active Protocol: Document 05/22/19 17:28 AW (Rec: 05/23/19 17:45 AW [id number]) Functional Tests Apley's Scratch Test Action 3- Left L1 Action 3- Right T8 PT-OP-F Manual Assessment Start: 05/22/19 17:27 Freq: Status: Active Protocol: Document 05/22/19 17:28 AW (Rec: 05/23/19 17:45 AW [id number]) Manual Assessments Soft Tissue Assessment Soft Tissue Mobility Assessment Increased density of bilateral upper traps, left levator scapula, bilateral cervical paraspinals Joint Mobility Assessment Joint Mobility Assessment Painful glenohumeral inferior glides. No other restrictions noted PT-OP-H Neuro Start: 05/22/19 17:27 Freq: Status: Active Protocol: Document 05/22/19 17:28 AW (Rec: 05/23/19 17:45 AW [id number]) Sensation Evaluation Gross Sensation Gross Sensation WNL Vital Signs Blood Pressure Sitting Blood Pressure (90/60-120/80 mmHg) 158/88 H Blood Pressure Source Manual Cuff,Left Upper Extremity PT-OP-J Posture/Palpation/Skin Start: 05/22/19 17:27 Freq: Status: Active Protocol: Document 05/22/19 17:28 AW (Rec: 05/23/19 17:45 AW [id number]) Posture Evaluation Position Sitting Evaluation View Lateral Head/C-Spine Posture Forward Head T-Spine Posture Increased Kyphosis Thorax Posture Bases Flared,Barrel Chested Shoulder Posture (L) Rounded,(R) Rounded Scapula Posture (L) Neutral,(R) Neutral Arm Posture (L) Internally Rotated,(R) Internally Rotated Comments Posture Comments Pt with forward head, bilateral rounded shoulders, excessive use of left upper traps for UE elevation. Right A/C joint is higher than left which is attibutable to remote history of R humeral head anterior dislocation. Left RC musculature shows atrophy compared with right. PT-OP-K Range of Motion Start: 05/22/19 17:27 Freq: Status: Active Protocol: Document 05/22/19 17:28 AW (Rec: 05/23/19 17:45 AW [id number]) Cervical Spine Range of Motion Cervical Spine Active Percentage Testing Position Sitting Comments All c-spine AROM WNL Shoulder Goniometric Range of Motion Shoulder Left Active Testing Position Sitting Flexion 140 Extension 38 Abduction 130 External Rotation at 90 degrees 58 Abduction Internal Rotation 80 Internal Rotation Behind Back (text) L1 Right Active Testing Position Sitting Flexion 157 Extension 40 Abduction 155 External Rotation at 90 degrees 90 Abduction Internal Rotation 90 Internal Rotation Behind Back (text) T8 Shoulder ROM Limitations Shoulder ROM Limitations Pain Elbow/Forearm Range of Motion Elbow/Forearm ROM Limitations Comments Elbow ROM WNL PT-OP-L Special Tests Start: 05/22/19 17:27 Freq: Status: Active Protocol: Document 05/22/19 17:28 AW (Rec: 05/23/19 17:45 AW [id number]) Special Tests Cervical Spine Special Tests Spurling's Test Test Results negative bilaterally Shoulder Special Tests Load and Shift Test Results negative bilaterally Pisano Slick Impingement Test Results positive left; negative right Comments mildly positive with minimal increase in pain Drop Arm Rotator Cuff Test Results positive left; negative right Comments pt able to maintain position momentarily, but with increased activation of upper traps and report of pain Other Special Tests Special Tests Painful arc: positive left at ~120 degrees Infraspinatus MMT: positive with reproduction of posterior shoulder pain PT-OP-M Strength Start: 05/22/19 17:27 Freq: Status: Active Protocol: Document 05/22/19 17:28 AW (Rec: 05/23/19 17:45 AW [id number]) Shoulder Strength Shoulder Manual Muscle Testing Right Flexion 5 Normal Abduction (C5) 5 Normal External Rotation 5 Normal Horizontal Abduction 5 Normal Left Flexion 4+ Good+ Abduction (C5) 4+ Good+ External Rotation 4+ Good+ Internal Rotation 5 Normal PT-OP-Q Treatments Start: 05/22/19 17:27 Freq: Status: Active Protocol: Document 05/30/19 13:48 HH (Rec: 05/30/19 14:41 HH [id number]) Therapeutic Exercises Supine Exercises Shoulder ER Side left Equipment Used PVC pipe Reps/Minutes 2 min Comments elbow 90 degrees Sitting Exercises 1 Sitting Exercise Name IT towel stretch Side left Equipment Used towel, strap Reps/Minutes 30 sec hold x 5 Comments cues to not push into painful range Standing Exercises RTC self release Side left Equipment Used tennis ball Comments at infraspinatus Scapular retraction with ER Standing Exercise Name isometric hold Side bilateral Resistance Level 1 band Reps/Minutes 10 secs x 5 Shoulder rolls Standing Exercise Name hands behind his back Side bilateral Reps/Minutes 4 mins Comments forward and backward; with shoulder IR with both hands behind L/S Manual Therapy Treatment Soft Tissue Mobilization Soft tissue release Body Location L supraspinatus, infraspinatus Mobilization Type Cross-Friction,Rolling, Strumming,Sustained Pressure Intensity/Depth Moderate Body Position Sitting Comments Pt reports sx reproduction Joint Mobilizations Posterior glide Joint L shoulder Direction Post glide Body Position Supine Reps/Duration 5 min Comments Post glide with ER PROM f/b AROM. Elbow supported on half foam roll. PT-OP-T Assessment and Plan Start: 05/22/19 17:27 Freq: Status: Active Protocol: Document 05/30/19 13:48 (Rec: 05/30/19 14:41 [id number]) Physical Therapy Assessment Goals Four Impairment Impaired ROM of left shoulder internal rotation Short Term Goal (STG) Pt will improve pain free left IR AROM from 58 to 68 or more . 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 Pt reports sx reproduction with STM to L infraspinatus, but improved pain with ER MMT post MT. ER PROM increased to approximately 60 degrees from 25 degrees after joint mobilizations with reduced pain. Pt demonstrates cont sx irritability with scapular exercises. HEP upgraded to include IR towel stretch, ER dowel stretch, small ball release, and scapular retraction with resistance and ER. Physical Therapy Plan Frequency and Duration Frequency of Treatment 1-2x/week Duration of Treatment 10 weeks Plan of Care Start Date 05/22/19 Plan of Care End Date 07/31/19 Therapeutic Interventions Therapeutic Interventions Home Exercise Program,Joint Mobilizations,Manual Therapy, Neuromuscular Re-education, Patient/Caregiver Education, Self-Care/Home Management, Sensory Integration,Soft Tissue Mobilization,Taping, Therapeutic Activities, Therapeutic Exercises Modalities Cold Pack/Ice Massage,Electric Stimulation,Hot Packs, Ultrasound Next Visit Focus/Plan Next Note Type Treatment Note Next Visit Plan reassess HEP - assess scapular mobility and thoracic spine mobility - progress stretching, AAROM left shoulder progress scapular stabilization as wilfrido STM as needed
--- NOTE | 2019-06-01 15:39 | PT.OTN ---
Current Diagnoses Pain in unspecified shoulder (06/01/19) Abnormal posture (06/01/19) Physical Therapy Treatment Note PT-OP-A Visit Information Start: 05/22/19 17:27 Freq: Status: Active Protocol: Document 06/01/19 13:49 HH (Rec: 06/01/19 14:41 HH [id number]) Out-Patient Physical Therapy Visit Information Visit Information Visit Type Treatment Note Visit Start Time 13:49 Visit Stop Time 14:30 Total Visit Minutes 41 Visit Number 3 Number of TEACHER OF THE HANDICAPPED Visits 0 PT-OP-B Current Condition Start: 05/22/19 17:27 Freq: Status: Active Protocol: Document 05/22/19 17:28 AW (Rec: 05/22/19 17:42 AW [id number]) Current Condition History of Current Condition Onset Date 2 years ago Current Complaints left shoulder pain History of Current Condition El is a right-handed 74-year- old man who has experienced anterior left shoulder pain on a near constant basis for nearly two years. Pain is typically 2-3/10 and has not improved or worsened in that time. 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 He does not use any pain medications; nor does he find any ice or heat helpful. He is unable to sleep on his left side, but otherwise sleeps well. 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 He does have a remote history of right anterior humeral head dislocation for which he underwent closed reduction. 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 I didnt do my ex since my was in the hospital yesterday. Patient Reported Progress Improving PT-OP-E Functional Tests Start: 05/22/19 17:27 Freq: Status: Active Protocol: Document 05/22/19 17:28 AW (Rec: 05/23/19 17:45 AW [id number]) Functional Tests Apley's Scratch Test Action 3- Left L1 Action 3- Right T8 PT-OP-F Manual Assessment Start: 05/22/19 17:27 Freq: Status: Active Protocol: Document 05/22/19 17:28 AW (Rec: 05/23/19 17:45 AW [id number]) Manual Assessments Soft Tissue Assessment Soft Tissue Mobility Assessment Increased density of bilateral upper traps, left levator scapula, bilateral cervical paraspinals Joint Mobility Assessment Joint Mobility Assessment Painful glenohumeral inferior glides. No other restrictions noted PT-OP-H Neuro Start: 05/22/19 17:27 Freq: Status: Active Protocol: Document 05/22/19 17:28 AW (Rec: 05/23/19 17:45 AW [id number]) Sensation Evaluation Gross Sensation Gross Sensation WNL Vital Signs Blood Pressure Sitting Blood Pressure (90/60-120/80 mmHg) 158/88 H Blood Pressure Source Manual Cuff,Left Upper Extremity PT-OP-J Posture/Palpation/Skin Start: 05/22/19 17:27 Freq: Status: Active Protocol: Document 05/22/19 17:28 AW (Rec: 05/23/19 17:45 AW [id number]) Posture Evaluation Position Sitting Evaluation View Lateral Head/C-Spine Posture Forward Head T-Spine Posture Increased Kyphosis Thorax Posture Bases Flared,Barrel Chested Shoulder Posture (L) Rounded,(R) Rounded Scapula Posture (L) Neutral,(R) Neutral Arm Posture (L) Internally Rotated,(R) Internally Rotated Comments Posture Comments Pt with forward head, bilateral rounded shoulders, excessive use of left upper traps for UE elevation. Right A/C joint is higher than left which is attibutable to remote history of R humeral head anterior dislocation. Left RC musculature shows atrophy compared with right. PT-OP-K Range of Motion Start: 05/22/19 17:27 Freq: Status: Active Protocol: Document 05/22/19 17:28 AW (Rec: 05/23/19 17:45 AW [id number]) Cervical Spine Range of Motion Cervical Spine Active Percentage Testing Position Sitting Comments All c-spine AROM WNL Shoulder Goniometric Range of Motion Shoulder Left Active Testing Position Sitting Flexion 140 Extension 38 Abduction 130 External Rotation at 90 degrees 58 Abduction Internal Rotation 80 Internal Rotation Behind Back (text) L1 Right Active Testing Position Sitting Flexion 157 Extension 40 Abduction 155 External Rotation at 90 degrees 90 Abduction Internal Rotation 90 Internal Rotation Behind Back (text) T8 Shoulder ROM Limitations Shoulder ROM Limitations Pain Elbow/Forearm Range of Motion Elbow/Forearm ROM Limitations Comments Elbow ROM WNL PT-OP-L Special Tests Start: 05/22/19 17:27 Freq: Status: Active Protocol: Document 05/22/19 17:28 AW (Rec: 05/23/19 17:45 AW [id number]) Special Tests Cervical Spine Special Tests Spurling's Test Test Results negative bilaterally Shoulder Special Tests Load and Shift Test Results negative bilaterally Pisano Slick Impingement Test Results positive left; negative right Comments mildly positive with minimal increase in pain Drop Arm Rotator Cuff Test Results positive left; negative right Comments pt able to maintain position momentarily, but with increased activation of upper traps and report of pain Other Special Tests Special Tests Painful arc: positive left at ~120 degrees Infraspinatus MMT: positive with reproduction of posterior shoulder pain PT-OP-M Strength Start: 05/22/19 17:27 Freq: Status: Active Protocol: Document 05/22/19 17:28 AW (Rec: 05/23/19 17:45 AW [id number]) Shoulder Strength Shoulder Manual Muscle Testing Right Flexion 5 Normal Abduction (C5) 5 Normal External Rotation 5 Normal Horizontal Abduction 5 Normal Left Flexion 4+ Good+ Abduction (C5) 4+ Good+ External Rotation 4+ Good+ Internal Rotation 5 Normal PT-OP-Q Treatments Start: 05/22/19 17:27 Freq: Status: Active Protocol: Document 06/01/19 13:49 HH (Rec: 06/01/19 14:41 HH [id number]) Therapeutic Exercises Standing Exercises shoulder depression Side left wall climb Side left Reps/Minutes 8 x2 Comments pinching pain at end range flexion bend over with shoulder flexion Standing Exercise Name UE on bars with hip hinge Reps/Minutes 5 x2 Comments c/o pinching pain at top of L shoulder Manual Therapy Treatment Soft Tissue Mobilization active release Body Location L infraspinatus Mobilization Type Sustained Pressure,Trigger Point Release Intensity/Depth Moderate Body Position Sitting Comments with active L shoulder ER Soft tissue release Body Location L supraspinatus, infraspinatus Mobilization Type Cross-Friction,Rolling, Strumming,Sustained Pressure Intensity/Depth Moderate Body Position Sitting Comments Pt reports reduced sx Joint Mobilizations Posterior glide Joint L shoulder Direction Post glide Body Position Supine Reps/Duration 5 min Comments Post glide with ER PROM f/b AROM. Elbow supported on half foam roll. PT-OP-T Assessment and Plan Start: 05/22/19 17:27 Freq: Status: Active Protocol: Document 06/01/19 13:49 HH (Rec: 06/01/19 14:41 HH [id number]) Physical Therapy Assessment Goals Four Impairment Impaired ROM of left shoulder internal rotation Short Term Goal (STG) Pt will improve pain free left IR AROM from 58 to 68 or more . STG Duration 06/26/19 Hydroelectric Plant Maintainer Goal (LTG) Pt will improve pain free left IR AROM to 78 or more LTG Duration 07/31/19 Three Impairment Pt unable to sleep uninterrupted on left side Nursing Home Goal (LTG) Pt will report full night's sleep regardless of position LTG Duration 07/31/19 Two Impairment Pt with 3/10 constant pain Short Term Goal (STG) Pt will be able to work 8-hour day with 2/10 pain or less STG Duration 06/26/19 Nursing Home Goal (LTG) Pt will be able to work 8-hour day with 1/10 pain or less LTG Duration 07/31/19 One Impairment pt with no HEP Short Term Goal (STG) Pt will be independent with HEP for support of services provided in clinic STG Duration 06/19/19 Assessment Summary Assessment Pt demonstrates improved GH external rotation at baseline that was further improved after MT. Cont demonstrate significant flexion limitation with excess shoulder elevation as compensation and report of pinching sensation at top of shoulder. Slight improvement in ROM but large improvement in quality of motion during AAROM shoulder flexion. Discussed modifying home weightlifting routine to prevent irritaiton of supraspinatus and biceps tendons. Pt was unable to complete HEP but will work on them until next visit. Physical Therapy Plan Next Visit Focus/Plan Next Note Type Treatment Note Next Visit Plan reassess HEP - assess scapular mobility and thoracic spine mobility - progress stretching, AAROM left shoulder progress scapular stabilization as wilfrido STM as needed
--- NOTE | 2019-06-07 17:20 | PT.OTN ---
Current Diagnoses Pain in unspecified shoulder (06/07/19) Abnormal posture (06/07/19) Physical Therapy Treatment Note PT-OP-A Visit Information Start: 05/22/19 17:27 Freq: Status: Active Protocol: Document 06/07/19 16:45 AW (Rec: 06/07/19 17:20 AW [email or web address]) Out-Patient Physical Therapy Visit Information Visit Information Visit Type Treatment Note Visit Start Time 16:00 Visit Stop Time 16:45 Total Visit Minutes 45 Visit Number 4 Number of WINE MAKER Visits 0 PT-OP-B Current Condition Start: 05/22/19 17:27 Freq: Status: Active Protocol: Document 05/22/19 17:28 AW (Rec: 05/22/19 17:42 AW [email or web address]) Current Condition History of Current Condition Onset Date 2 years ago Current Complaints left shoulder pain History of Current Condition El is a right-handed 74-year- old man who has experienced anterior left shoulder pain on a near constant basis for nearly two years. Pain is typically 2-3/10 and has not improved or worsened in that time. 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 He does not use any pain medications; nor does he find any ice or heat helpful. He is unable to sleep on his left side, but otherwise sleeps well. 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 He does have a remote history of right anterior humeral head dislocation for which he underwent closed reduction. 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 I notice it pops a lot, especially when I move it over my head. Patient Reported Progress Same PT-OP-E Functional Tests Start: 05/22/19 17:27 Freq: Status: Active Protocol: Document 05/22/19 17:28 AW (Rec: 05/23/19 17:45 AW [id number]) Functional Tests Apley's Scratch Test Action 3- Left L1 Action 3- Right T8 PT-OP-F Manual Assessment Start: 05/22/19 17:27 Freq: Status: Active Protocol: Document 05/22/19 17:28 AW (Rec: 05/23/19 17:45 AW [id number]) Manual Assessments Soft Tissue Assessment Soft Tissue Mobility Assessment Increased density of bilateral upper traps, left levator scapula, bilateral cervical paraspinals Joint Mobility Assessment Joint Mobility Assessment Painful glenohumeral inferior glides. No other restrictions noted PT-OP-H Neuro Start: 05/22/19 17:27 Freq: Status: Active Protocol: Document 05/22/19 17:28 AW (Rec: 05/23/19 17:45 AW [id number]) Sensation Evaluation Gross Sensation Gross Sensation WNL Vital Signs Blood Pressure Sitting Blood Pressure (90/60-120/80 mmHg) 158/88 H Blood Pressure Source Manual Cuff,Left Upper Extremity PT-OP-J Posture/Palpation/Skin Start: 05/22/19 17:27 Freq: Status: Active Protocol: Document 05/22/19 17:28 AW (Rec: 05/23/19 17:45 AW [id number]) Posture Evaluation Position Sitting Evaluation View Lateral Head/C-Spine Posture Forward Head T-Spine Posture Increased Kyphosis Thorax Posture Bases Flared,Barrel Chested Shoulder Posture (L) Rounded,(R) Rounded Scapula Posture (L) Neutral,(R) Neutral Arm Posture (L) Internally Rotated,(R) Internally Rotated Comments Posture Comments Pt with forward head, bilateral rounded shoulders, excessive use of left upper traps for UE elevation. Right A/C joint is higher than left which is attibutable to remote history of R humeral head anterior dislocation. Left RC musculature shows atrophy compared with right. PT-OP-K Range of Motion Start: 05/22/19 17:27 Freq: Status: Active Protocol: Document 05/22/19 17:28 AW (Rec: 05/23/19 17:45 AW [id number]) Cervical Spine Range of Motion Cervical Spine Active Percentage Testing Position Sitting Comments All c-spine AROM WNL Shoulder Goniometric Range of Motion Shoulder Left Active Testing Position Sitting Flexion 140 Extension 38 Abduction 130 External Rotation at 90 degrees 58 Abduction Internal Rotation 80 Internal Rotation Behind Back (text) L1 Right Active Testing Position Sitting Flexion 157 Extension 40 Abduction 155 External Rotation at 90 degrees 90 Abduction Internal Rotation 90 Internal Rotation Behind Back (text) T8 Shoulder ROM Limitations Shoulder ROM Limitations Pain Elbow/Forearm Range of Motion Elbow/Forearm ROM Limitations Comments Elbow ROM WNL PT-OP-L Special Tests Start: 05/22/19 17:27 Freq: Status: Active Protocol: Document 05/22/19 17:28 AW (Rec: 05/23/19 17:45 AW [id number]) Special Tests Cervical Spine Special Tests Spurling's Test Test Results negative bilaterally Shoulder Special Tests Load and Shift Test Results negative bilaterally Pisano Slick Impingement Test Results positive left; negative right Comments mildly positive with minimal increase in pain Drop Arm Rotator Cuff Test Results positive left; negative right Comments pt able to maintain position momentarily, but with increased activation of upper traps and report of pain Other Special Tests Special Tests Painful arc: positive left at ~120 degrees Infraspinatus MMT: positive with reproduction of posterior shoulder pain PT-OP-M Strength Start: 05/22/19 17:27 Freq: Status: Active Protocol: Document 05/22/19 17:28 AW (Rec: 05/23/19 17:45 AW [id number]) Shoulder Strength Shoulder Manual Muscle Testing Right Flexion 5 Normal Abduction (C5) 5 Normal External Rotation 5 Normal Horizontal Abduction 5 Normal Left Flexion 4+ Good+ Abduction (C5) 4+ Good+ External Rotation 4+ Good+ Internal Rotation 5 Normal PT-OP-Q Treatments Start: 05/22/19 17:27 Freq: Status: Active Protocol: Document 06/07/19 16:45 AW (Rec: 06/07/19 17:20 AW [email or web address]) Therapeutic Exercises Supine Exercises Shoulder flexion AAROM Supine Exercise Name Shoulder flexion AAROM Side left Equipment Used PVC pipe Reps/Minutes 2 min Shoulder ER Supine Exercise Name shoulder ER AAROM Side left Equipment Used PVC pipe Reps/Minutes 2 min Comments elbow 90 degrees Sidelying Exercises scapular PNF Sidelying Exercise Name scapular PNF Side bilateral Resistance manual Reps/Minutes 5 minutes Comments quick stretch into elev/ protract; pt pulls vs resist into retract/depress Sitting Exercises scapular retraction Sitting Exercise Name scapular retraction Side bilateral Reps/Minutes 2x12 reps Comments cues to avoid shoulder elevation Standing Exercises isometric ER Standing Exercise Name isometric ER Side bilateral Reps/Minutes 3 sec hold x 8 Comments pt reports pain, popping/clunk with isometric ER; discontinued resisted GH extension Standing Exercise Name resisted GH extension Side bilateral Resistance level 2 Equipment Used T band Reps/Minutes 12 reps Comments pt reports popping/clunk in left shoulder; discontinued resisted row Standing Exercise Name resisted row Side bilateral Resistance level 2 Equipment Used T band Reps/Minutes 2x12 reps bend over with shoulder flexion Standing Exercise Name UE on bars with hip hinge Reps/Minutes 5 x2 Comments c/o pinching pain at top of L shoulder Manual Therapy Treatment Soft Tissue Mobilization active release Body Location L infraspinatus Mobilization Type Sustained Pressure,Trigger Point Release Intensity/Depth Moderate Body Position Sitting Comments with active L shoulder ER Soft tissue release Body Location L supraspinatus, infraspinatus Mobilization Type Cross-Friction,Rolling, Strumming,Sustained Pressure Intensity/Depth Moderate Body Position Sitting Comments Pt reports point tenderness at infraspinatus insertion Joint Mobilizations Inferior glide Joint left GH Direction inferior Grade II Body Position Supine Reps/Duration 3 min Comments inferior glide with shoulder in ~75 degrees abduction. Posterior glide Joint L shoulder Direction Post glide Body Position Supine Reps/Duration 3 min Comments Post glide with ER PROM f/b AROM. Elbow supported on half foam roll. PT-OP-T Assessment and Plan Start: 05/22/19 17:27 Freq: Status: Active Protocol: Document 06/07/19 16:45 AW (Rec: 06/07/19 17:20 AW [email or web address]) Physical Therapy Assessment Goals Four Impairment Impaired ROM of left shoulder internal rotation Short Term Goal (STG) Pt will improve pain free left IR AROM from 58 to 68 or more . STG Duration 06/26/19 Mcc Goal (LTG) Pt will improve pain free left IR AROM to 78 or more LTG Duration 07/31/19 Three Impairment Pt unable to sleep uninterrupted on left side Agricultural Research Technician Goal (LTG) Pt will report full night's sleep regardless of position LTG Duration 07/31/19 Two Impairment Pt with 3/10 constant pain Short Term Goal (STG) Pt will be able to work 8-hour day with 2/10 pain or less STG Duration 06/26/19 Mcc Goal (LTG) Pt will be able to work 8-hour day with 1/10 pain or less LTG Duration 07/31/19 One Impairment pt with no HEP Short Term Goal (STG) Pt will be independent with HEP for support of services provided in clinic STG Duration 06/19/19 Assessment Summary Assessment Pt has audible clunk with resisted ER and with GH extension in external rotation . RC pathology seems to be his primary limitation, but he may also have instability of the GH complex that is not yet identified. Physical Therapy Plan Frequency and Duration Frequency of Treatment 1-2x/week Duration of Treatment 10 weeks Plan of Care Start Date 05/22/19 Plan of Care End Date 07/31/19 Therapeutic Interventions Therapeutic Interventions Home Exercise Program,Joint Mobilizations,Manual Therapy, Neuromuscular Re-education, Patient/Caregiver Education, Self-Care/Home Management, Sensory Integration,Soft Tissue Mobilization,Taping, Therapeutic Activities, Therapeutic Exercises Modalities Cold Pack/Ice Massage,Electric Stimulation,Hot Packs, Ultrasound Next Visit Focus/Plan Next Note Type Treatment Note Next Visit Plan - consider assessing for labral pathology reassess HEP - assess scapular mobility and thoracic spine mobility - progress stretching, AAROM left shoulder progress scapular stabilization as wilfrido STM as needed
--- NOTE | 2019-06-14 13:04 | PT.OTN ---
Current Diagnoses Pain in unspecified shoulder (06/14/19) Abnormal posture (06/14/19) Physical Therapy Treatment Note PT-OP-A Visit Information Start: 05/22/19 17:27 Freq: Status: Active Protocol: Document 06/14/19 11:01 AW (Rec: 06/14/19 13:04 AW [email or web address]) Out-Patient Physical Therapy Visit Information Visit Information Visit Type Treatment Note Visit Start Time 08:59 Visit Stop Time 09:44 Total Visit Minutes 45 Visit Number 5 Number of MAINTENANCE MACHINE REPAIRER Visits 0 PT-OP-B Current Condition Start: 05/22/19 17:27 Freq: Status: Active Protocol: Document 05/22/19 17:28 AW (Rec: 05/22/19 17:42 AW [email or web address]) Current Condition History of Current Condition Onset Date 2 years ago Current Complaints left shoulder pain History of Current Condition El is a right-handed 74-year- old man who has experienced anterior left shoulder pain on a near constant basis for nearly two years. Pain is typically 2-3/10 and has not improved or worsened in that time. 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 He does not use any pain medications; nor does he find any ice or heat helpful. He is unable to sleep on his left side, but otherwise sleeps well. 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 He does have a remote history of right anterior humeral head dislocation for which he underwent closed reduction. 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 Patient Reported Progress Same PT-OP-E Functional Tests Start: 05/22/19 17:27 Freq: Status: Active Protocol: Document 05/22/19 17:28 AW (Rec: 05/23/19 17:45 AW [id number]) Functional Tests Apley's Scratch Test Action 3- Left L1 Action 3- Right T8 PT-OP-F Manual Assessment Start: 05/22/19 17:27 Freq: Status: Active Protocol: Document 05/22/19 17:28 AW (Rec: 05/23/19 17:45 AW [id number]) Manual Assessments Soft Tissue Assessment Soft Tissue Mobility Assessment Increased density of bilateral upper traps, left levator scapula, bilateral cervical paraspinals Joint Mobility Assessment Joint Mobility Assessment Painful glenohumeral inferior glides. No other restrictions noted PT-OP-H Neuro Start: 05/22/19 17:27 Freq: Status: Active Protocol: Document 05/22/19 17:28 AW (Rec: 05/23/19 17:45 AW [id number]) Sensation Evaluation Gross Sensation Gross Sensation WNL Vital Signs Blood Pressure Sitting Blood Pressure (90/60-120/80 mmHg) 158/88 H Blood Pressure Source Manual Cuff,Left Upper Extremity PT-OP-J Posture/Palpation/Skin Start: 05/22/19 17:27 Freq: Status: Active Protocol: Document 05/22/19 17:28 AW (Rec: 05/23/19 17:45 AW [id number]) Posture Evaluation Position Sitting Evaluation View Lateral Head/C-Spine Posture Forward Head T-Spine Posture Increased Kyphosis Thorax Posture Bases Flared,Barrel Chested Shoulder Posture (L) Rounded,(R) Rounded Scapula Posture (L) Neutral,(R) Neutral Arm Posture (L) Internally Rotated,(R) Internally Rotated Comments Posture Comments Pt with forward head, bilateral rounded shoulders, excessive use of left upper traps for UE elevation. Right A/C joint is higher than left which is attibutable to remote history of R humeral head anterior dislocation. Left RC musculature shows atrophy compared with right. PT-OP-K Range of Motion Start: 05/22/19 17:27 Freq: Status: Active Protocol: Document 05/22/19 17:28 AW (Rec: 05/23/19 17:45 AW [id number]) Cervical Spine Range of Motion Cervical Spine Active Percentage Testing Position Sitting Comments All c-spine AROM WNL Shoulder Goniometric Range of Motion Shoulder Left Active Testing Position Sitting Flexion 140 Extension 38 Abduction 130 External Rotation at 90 degrees 58 Abduction Internal Rotation 80 Internal Rotation Behind Back (text) L1 Right Active Testing Position Sitting Flexion 157 Extension 40 Abduction 155 External Rotation at 90 degrees 90 Abduction Internal Rotation 90 Internal Rotation Behind Back (text) T8 Shoulder ROM Limitations Shoulder ROM Limitations Pain Elbow/Forearm Range of Motion Elbow/Forearm ROM Limitations Comments Elbow ROM WNL PT-OP-L Special Tests Start: 05/22/19 17:27 Freq: Status: Active Protocol: Document 05/22/19 17:28 AW (Rec: 05/23/19 17:45 AW [id number]) Special Tests Cervical Spine Special Tests Spurling's Test Test Results negative bilaterally Shoulder Special Tests Load and Shift Test Results negative bilaterally Pisano Slick Impingement Test Results positive left; negative right Comments mildly positive with minimal increase in pain Drop Arm Rotator Cuff Test Results positive left; negative right Comments pt able to maintain position momentarily, but with increased activation of upper traps and report of pain Other Special Tests Special Tests Painful arc: positive left at ~120 degrees Infraspinatus MMT: positive with reproduction of posterior shoulder pain PT-OP-M Strength Start: 05/22/19 17:27 Freq: Status: Active Protocol: Document 05/22/19 17:28 AW (Rec: 05/23/19 17:45 AW [id number]) Shoulder Strength Shoulder Manual Muscle Testing Right Flexion 5 Normal Abduction (C5) 5 Normal External Rotation 5 Normal Horizontal Abduction 5 Normal Left Flexion 4+ Good+ Abduction (C5) 4+ Good+ External Rotation 4+ Good+ Internal Rotation 5 Normal PT-OP-Q Treatments Start: 05/22/19 17:27 Freq: Status: Active Protocol: Document 06/14/19 11:01 AW (Rec: 06/14/19 13:04 AW [email or web address]) Cardio Equipment Upper Body Ergometer (UBE) Duration (Minutes) 5 RPM 75 Seat Position 15 Height 3 Therapeutic Exercises Supine Exercises Shoulder flexion AAROM Supine Exercise Name Shoulder flexion AAROM Side left Equipment Used PVC pipe Reps/Minutes 2 min Shoulder ER Supine Exercise Name shoulder ER AAROM Side left Equipment Used PVC pipe Reps/Minutes 2 min Comments elbow 90 degrees Sidelying Exercises sidelyine ER Sidelying Exercise Name sidelyine ER Side left Reps/Minutes 2x15 reps Comments pt reports popping with 2#db but no pop when unweighted sleeper stretch Sidelying Exercise Name sleeper stretch Side left Resistance manual/self Reps/Minutes 30 sec hold x 4 Comments cues to avoid painful range scapular PNF Sidelying Exercise Name scapular PNF Side bilateral Resistance manual Reps/Minutes 5 minutes Comments quick stretch into elev/ protract; pt pulls vs resist into retract/depress Sitting Exercises pronation/supination Sitting Exercise Name pronation/supination AROM Side left Reps/Minutes 20 reps Comments painful pop reported when attempted with 2# weight 1 Sitting Exercise Name IR towel stretch Side left Equipment Used towel, strap Reps/Minutes 30 sec hold x 5 Comments cues to not push into painful range Standing Exercises resisted elbow extension Standing Exercise Name resisted elbow extension/ triceps push down Side bilateral Resistance level 2 Equipment Used T band Reps/Minutes 2x12 reps resisted row Standing Exercise Name resisted row Side bilateral Resistance level 2 Equipment Used T band Reps/Minutes 2x12 reps bend over with shoulder flexion Standing Exercise Name UE on bars with hip hinge Equipment Used hands on treadmill rail Reps/Minutes x5 Comments c/o pinching pain at top of L shoulder Self-Care/Home Management Treatment Education Patient Education Home Exercise Program Other Education HEP - RC self-release - supine ER AAROM - towel/strap IR stretch - resisted scapular retraction with external rotation - AROM pronation/supination PT-OP-T Assessment and Plan Start: 05/22/19 17:27 Freq: Status: Active Protocol: Document 06/14/19 11:01 AW (Rec: 06/14/19 13:04 AW [email or web address]) Physical Therapy Assessment Goals Four Impairment Impaired ROM of left shoulder internal rotation Short Term Goal (STG) Pt will improve pain free left IR AROM from 58 to 68 or more . STG Duration 06/26/19 Stock Supervisor Goal (LTG) Pt will improve pain free left IR AROM to 78 or more LTG Duration 07/31/19 Three Impairment Pt unable to sleep uninterrupted on left side Senior Care Goal (LTG) Pt will report full night's sleep regardless of position LTG Duration 07/31/19 Two Impairment Pt with 3/10 constant pain Short Term Goal (STG) Pt will be able to work 8-hour day with 2/10 pain or less STG Duration 06/26/19 Stock Supervisor Goal (LTG) Pt will be able to work 8-hour day with 1/10 pain or less LTG Duration 07/31/19 One Impairment pt with no HEP Short Term Goal (STG) Pt will be independent with HEP for support of services provided in clinic STG Duration 06/19/19 Assessment Summary Assessment Crank test reproduces pt's anterior shoulder pain. He also has pain and popping with resisted supination, indicating possible biceps tendon involvement. He continues to require frequent cueing to avoid moving into painful range of motion. He will benefit from continued therapy to increase ROM, strength, and stability of the shoulder complex. Physical Therapy Plan Frequency and Duration Frequency of Treatment 1-2x/week Duration of Treatment 10 weeks Plan of Care Start Date 05/22/19 Plan of Care End Date 07/31/19 Therapeutic Interventions Therapeutic Interventions Home Exercise Program,Joint Mobilizations,Manual Therapy, Neuromuscular Re-education, Patient/Caregiver Education, Self-Care/Home Management, Sensory Integration,Soft Tissue Mobilization,Taping, Therapeutic Activities, Therapeutic Exercises Modalities Cold Pack/Ice Massage,Electric Stimulation,Hot Packs, Ultrasound Next Visit Focus/Plan Next Note Type Treatment Note Next Visit Plan - progress stretching, AAROM left shoulder progress scapular stabilization as wilfrido STM as needed
--- NOTE | 2019-07-05 12:34 | PT.OTN ---
Current Diagnoses Pain in unspecified shoulder (07/05/19) Abnormal posture (07/05/19) Physical Therapy Treatment Note PT-OP-A Visit Information Start: 05/22/19 17:27 Freq: Status: Active Protocol: Document 07/05/19 10:32 AW (Rec: 07/05/19 12:34 AW [email or web address]) Out-Patient Physical Therapy Visit Information Visit Information Visit Type Treatment Note Visit Start Time 09:45 Visit Stop Time 10:30 Total Visit Minutes 45 Visit Number 6 Number of TESTER OPERATOR Visits 0 PT-OP-B Current Condition Start: 05/22/19 17:27 Freq: Status: Active Protocol: Document 05/22/19 17:28 AW (Rec: 05/22/19 17:42 AW [email or web address]) Current Condition History of Current Condition Onset Date 2 years ago Current Complaints left shoulder pain History of Current Condition El is a right-handed 74-year- old man who has experienced anterior left shoulder pain on a near constant basis for nearly two years. Pain is typically 2-3/10 and has not improved or worsened in that time. 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 He does not use any pain medications; nor does he find any ice or heat helpful. He is unable to sleep on his left side, but otherwise sleeps well. 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 He does have a remote history of right anterior humeral head dislocation for which he underwent closed reduction. 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 My shoulder feels a lot better, even with overhead movement. Patient Reported Progress Improving PT-OP-E Functional Tests Start: 05/22/19 17:27 Freq: Status: Active Protocol: Document 05/22/19 17:28 AW (Rec: 05/23/19 17:45 AW [id number]) Functional Tests Apley's Scratch Test Action 3- Left L1 Action 3- Right T8 PT-OP-F Manual Assessment Start: 05/22/19 17:27 Freq: Status: Active Protocol: Document 05/22/19 17:28 AW (Rec: 05/23/19 17:45 AW [id number]) Manual Assessments Soft Tissue Assessment Soft Tissue Mobility Assessment Increased density of bilateral upper traps, left levator scapula, bilateral cervical paraspinals Joint Mobility Assessment Joint Mobility Assessment Painful glenohumeral inferior glides. No other restrictions noted PT-OP-H Neuro Start: 05/22/19 17:27 Freq: Status: Active Protocol: Document 05/22/19 17:28 AW (Rec: 05/23/19 17:45 AW [id number]) Sensation Evaluation Gross Sensation Gross Sensation WNL Vital Signs Blood Pressure Sitting Blood Pressure (90/60-120/80 mmHg) 158/88 H Blood Pressure Source Manual Cuff,Left Upper Extremity PT-OP-J Posture/Palpation/Skin Start: 05/22/19 17:27 Freq: Status: Active Protocol: Document 05/22/19 17:28 AW (Rec: 05/23/19 17:45 AW [id number]) Posture Evaluation Position Sitting Evaluation View Lateral Head/C-Spine Posture Forward Head T-Spine Posture Increased Kyphosis Thorax Posture Bases Flared,Barrel Chested Shoulder Posture (L) Rounded,(R) Rounded Scapula Posture (L) Neutral,(R) Neutral Arm Posture (L) Internally Rotated,(R) Internally Rotated Comments Posture Comments Pt with forward head, bilateral rounded shoulders, excessive use of left upper traps for UE elevation. Right A/C joint is higher than left which is attibutable to remote history of R humeral head anterior dislocation. Left RC musculature shows atrophy compared with right. PT-OP-K Range of Motion Start: 05/22/19 17:27 Freq: Status: Active Protocol: Document 05/22/19 17:28 AW (Rec: 05/23/19 17:45 AW [id number]) Cervical Spine Range of Motion Cervical Spine Active Percentage Testing Position Sitting Comments All c-spine AROM WNL Shoulder Goniometric Range of Motion Shoulder Left Active Testing Position Sitting Flexion 140 Extension 38 Abduction 130 External Rotation at 90 degrees 58 Abduction Internal Rotation 80 Internal Rotation Behind Back (text) L1 Right Active Testing Position Sitting Flexion 157 Extension 40 Abduction 155 External Rotation at 90 degrees 90 Abduction Internal Rotation 90 Internal Rotation Behind Back (text) T8 Shoulder ROM Limitations Shoulder ROM Limitations Pain Elbow/Forearm Range of Motion Elbow/Forearm ROM Limitations Comments Elbow ROM WNL PT-OP-L Special Tests Start: 05/22/19 17:27 Freq: Status: Active Protocol: Document 05/22/19 17:28 AW (Rec: 05/23/19 17:45 AW [id number]) Special Tests Cervical Spine Special Tests Spurling's Test Test Results negative bilaterally Shoulder Special Tests Load and Shift Test Results negative bilaterally Pisano Slick Impingement Test Results positive left; negative right Comments mildly positive with minimal increase in pain Drop Arm Rotator Cuff Test Results positive left; negative right Comments pt able to maintain position momentarily, but with increased activation of upper traps and report of pain Other Special Tests Special Tests Painful arc: positive left at ~120 degrees Infraspinatus MMT: positive with reproduction of posterior shoulder pain PT-OP-M Strength Start: 05/22/19 17:27 Freq: Status: Active Protocol: Document 05/22/19 17:28 AW (Rec: 05/23/19 17:45 AW [id number]) Shoulder Strength Shoulder Manual Muscle Testing Right Flexion 5 Normal Abduction (C5) 5 Normal External Rotation 5 Normal Horizontal Abduction 5 Normal Left Flexion 4+ Good+ Abduction (C5) 4+ Good+ External Rotation 4+ Good+ Internal Rotation 5 Normal PT-OP-Q Treatments Start: 05/22/19 17:27 Freq: Status: Active Protocol: Document 07/05/19 10:32 AW (Rec: 07/05/19 12:34 AW [email or web address]) Cardio Equipment Upper Body Ergometer (UBE) Duration (Minutes) 5 RPM 75 Seat Position 15 Height 3 Therapeutic Exercises Sidelying Exercises sidelyine ER Sidelying Exercise Name sidelyine ER Side left Reps/Minutes 2x15 reps Comments unweighted first set; trialed 2# db but pt could not tolerate sleeper stretch Sidelying Exercise Name sleeper stretch Side left Resistance manual/self Reps/Minutes 30 sec hold x 4 Comments cues to avoid painful range Sitting Exercises scapular depression Sitting Exercise Name scapular depression Side bilateral Resistance 50# Equipment Used cable stack Reps/Minutes 2x15 reps Comments cues for straight arms, max scapular depression pronation/supination Sitting Exercise Name pronation/supination AROM Side left Reps/Minutes 20 reps Comments no popping scapular retraction Sitting Exercise Name scapular retraction Side bilateral Reps/Minutes 2x12 reps Comments cues to avoid shoulder elevation Standing Exercises shoulder reactive isometrics Standing Exercise Name shoulder reactive isometrics Side left Resistance level 1 Equipment Used t band Reps/Minutes 3 laps each direction Comments ER/IR, cues for neutral wrist W wall slides Standing Exercise Name W wall slides Side bilateral Reps/Minutes 2x10 reps Comments facing wall; pt lacks ER ROM to make contact with wall facing away ball wall Standing Exercise Name ball wall Side left Equipment Used 1.1# ball Reps/Minutes 3 minutes Comments clockwise and counter clockwise resisted elbow extension Standing Exercise Name resisted elbow extension/ triceps push down Side bilateral Resistance level 3 Equipment Used T band Reps/Minutes 2x12 reps resisted GH extension Standing Exercise Name resisted GH extension Side bilateral Resistance level 3 Equipment Used T band Reps/Minutes 12 reps Comments pt reports popping/clunk in left shoulder; discontinued resisted row Standing Exercise Name resisted row Side bilateral Resistance level 3 Equipment Used T band Reps/Minutes 2x12 reps wall climb Standing Exercise Name wall climb - abd, flex, scaption Side left Reps/Minutes 8 x2 each plane Comments no pain reported; cues to avoid shoulder elevation Shoulder rolls Standing Exercise Name hands behind his back Side bilateral Reps/Minutes 2 mins Comments forward and backward Self-Care/Home Management Treatment Education Patient Education Home Exercise Program Other Education HEP - RC self-release - supine ER AAROM - towel/strap IR stretch - resisted scapular retraction with external rotation - AROM pronation/supination PT-OP-T Assessment and Plan Start: 05/22/19 17:27 Freq: Status: Active Protocol: Document 07/05/19 10:32 AW (Rec: 07/05/19 12:34 AW [email or web address]) Physical Therapy Assessment Goals Four Impairment Impaired ROM of left shoulder internal rotation Short Term Goal (STG) Pt will improve pain free left IR AROM from 58 to 68 or more . STG Duration 06/26/19 Alf Goal (LTG) Pt will improve pain free left IR AROM to 78 or more LTG Duration 07/31/19 Three Impairment Pt unable to sleep uninterrupted on left side Account Support Analyst Goal (LTG) Pt will report full night's sleep regardless of position LTG Duration 07/31/19 Two Impairment Pt with 3/10 constant pain Short Term Goal (STG) Pt will be able to work 8-hour day with 2/10 pain or less 07/05/19 MET - pt worked 12- hour day recently wtih 2-10 pain by end of day STG Duration 06/26/19 Alf Goal (LTG) Pt will be able to work 8-hour day with 1/10 pain or less LTG Duration 07/31/19 One Impairment pt with no HEP Short Term Goal (STG) Pt will be independent with HEP for support of services provided in clinic 07/05/19 PROGRESSING - pt is intermittently performing HEP STG Duration 06/19/19 Assessment Summary Assessment Pt presents with decreased irritability of symptoms today . He tolerated increased load in ther ex, but continues to have pain with weighted sidelying ER. Physical Therapy Plan Frequency and Duration Frequency of Treatment 1-2x/week Duration of Treatment 10 weeks Plan of Care Start Date 05/22/19 Plan of Care End Date 07/31/19 Therapeutic Interventions Therapeutic Interventions Home Exercise Program,Joint Mobilizations,Manual Therapy, Neuromuscular Re-education, Patient/Caregiver Education, Self-Care/Home Management, Sensory Integration,Soft Tissue Mobilization,Taping, Therapeutic Activities, Therapeutic Exercises Modalities Cold Pack/Ice Massage,Electric Stimulation,Hot Packs, Ultrasound Next Visit Focus/Plan Next Note Type Treatment Note Next Visit Plan - progress stretching, AAROM left shoulder progress scapular stabilization as wilfrido STM as needed
--- NOTE | 2019-07-19 17:30 | PT.OTN ---
Current Diagnoses Pain in unspecified shoulder (07/19/19) Abnormal posture (07/19/19) Physical Therapy Treatment Note PT-OP-A Visit Information Start: 05/22/19 17:27 Freq: Status: Active Protocol: Document 07/19/19 17:22 AW (Rec: 07/19/19 17:30 AW [email or web address]) Out-Patient Physical Therapy Visit Information Visit Information Visit Type Treatment Note Visit Start Time 09:56 Visit Stop Time 10:29 Total Visit Minutes 33 Visit Number 7 Number of RX SPECIALIST Visits 0 PT-OP-B Current Condition Start: 05/22/19 17:27 Freq: Status: Active Protocol: Document 05/22/19 17:28 AW (Rec: 05/22/19 17:42 AW [email or web address]) Current Condition History of Current Condition Onset Date 2 years ago Current Complaints left shoulder pain History of Current Condition El is a right-handed 74-year- old man who has experienced anterior left shoulder pain on a near constant basis for nearly two years. Pain is typically 2-3/10 and has not improved or worsened in that time. 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 He does not use any pain medications; nor does he find any ice or heat helpful. He is unable to sleep on his left side, but otherwise sleeps well. 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 He does have a remote history of right anterior humeral head dislocation for which he underwent closed reduction. 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 Patient Reported Progress Improving PT-OP-E Functional Tests Start: 05/22/19 17:27 Freq: Status: Active Protocol: Document 05/22/19 17:28 AW (Rec: 05/23/19 17:45 AW [id number]) Functional Tests Apley's Scratch Test Action 3- Left L1 Action 3- Right T8 PT-OP-F Manual Assessment Start: 05/22/19 17:27 Freq: Status: Active Protocol: Document 05/22/19 17:28 AW (Rec: 05/23/19 17:45 AW [id number]) Manual Assessments Soft Tissue Assessment Soft Tissue Mobility Assessment Increased density of bilateral upper traps, left levator scapula, bilateral cervical paraspinals Joint Mobility Assessment Joint Mobility Assessment Painful glenohumeral inferior glides. No other restrictions noted PT-OP-H Neuro Start: 05/22/19 17:27 Freq: Status: Active Protocol: Document 05/22/19 17:28 AW (Rec: 05/23/19 17:45 AW [id number]) Sensation Evaluation Gross Sensation Gross Sensation WNL Vital Signs Blood Pressure Sitting Blood Pressure (90/60-120/80 mmHg) 158/88 H Blood Pressure Source Manual Cuff,Left Upper Extremity PT-OP-J Posture/Palpation/Skin Start: 05/22/19 17:27 Freq: Status: Active Protocol: Document 05/22/19 17:28 AW (Rec: 05/23/19 17:45 AW [id number]) Posture Evaluation Position Sitting Evaluation View Lateral Head/C-Spine Posture Forward Head T-Spine Posture Increased Kyphosis Thorax Posture Bases Flared,Barrel Chested Shoulder Posture (L) Rounded,(R) Rounded Scapula Posture (L) Neutral,(R) Neutral Arm Posture (L) Internally Rotated,(R) Internally Rotated Comments Posture Comments Pt with forward head, bilateral rounded shoulders, excessive use of left upper traps for UE elevation. Right A/C joint is higher than left which is attibutable to remote history of R humeral head anterior dislocation. Left RC musculature shows atrophy compared with right. PT-OP-K Range of Motion Start: 05/22/19 17:27 Freq: Status: Active Protocol: Document 05/22/19 17:28 AW (Rec: 05/23/19 17:45 AW [id number]) Cervical Spine Range of Motion Cervical Spine Active Percentage Testing Position Sitting Comments All c-spine AROM WNL Shoulder Goniometric Range of Motion Shoulder Left Active Testing Position Sitting Flexion 140 Extension 38 Abduction 130 External Rotation at 90 degrees 58 Abduction Internal Rotation 80 Internal Rotation Behind Back (text) L1 Right Active Testing Position Sitting Flexion 157 Extension 40 Abduction 155 External Rotation at 90 degrees 90 Abduction Internal Rotation 90 Internal Rotation Behind Back (text) T8 Shoulder ROM Limitations Shoulder ROM Limitations Pain Elbow/Forearm Range of Motion Elbow/Forearm ROM Limitations Comments Elbow ROM WNL PT-OP-L Special Tests Start: 05/22/19 17:27 Freq: Status: Active Protocol: Document 05/22/19 17:28 AW (Rec: 05/23/19 17:45 AW [id number]) Special Tests Cervical Spine Special Tests Spurling's Test Test Results negative bilaterally Shoulder Special Tests Load and Shift Test Results negative bilaterally Pisano Slick Impingement Test Results positive left; negative right Comments mildly positive with minimal increase in pain Drop Arm Rotator Cuff Test Results positive left; negative right Comments pt able to maintain position momentarily, but with increased activation of upper traps and report of pain Other Special Tests Special Tests Painful arc: positive left at ~120 degrees Infraspinatus MMT: positive with reproduction of posterior shoulder pain PT-OP-M Strength Start: 05/22/19 17:27 Freq: Status: Active Protocol: Document 05/22/19 17:28 AW (Rec: 05/23/19 17:45 AW [id number]) Shoulder Strength Shoulder Manual Muscle Testing Right Flexion 5 Normal Abduction (C5) 5 Normal External Rotation 5 Normal Horizontal Abduction 5 Normal Left Flexion 4+ Good+ Abduction (C5) 4+ Good+ External Rotation 4+ Good+ Internal Rotation 5 Normal PT-OP-Q Treatments Start: 05/22/19 17:27 Freq: Status: Active Protocol: Document 07/19/19 17:22 AW (Rec: 07/19/19 17:30 AW [email or web address]) Cardio Equipment Upper Body Ergometer (UBE) Duration (Minutes) 5 RPM 90 Seat Position 15 Height 3 Therapeutic Exercises Sidelying Exercises sidelyine ER Sidelying Exercise Name sidelying ER Side left Reps/Minutes 2x15 reps Comments pt tolerates well sleeper stretch Sidelying Exercise Name sleeper stretch Side left Resistance manual/self Reps/Minutes 30 sec hold x 4 Comments cues to avoid painful range Sitting Exercises scapular depression Sitting Exercise Name scapular depression Side bilateral Resistance 50# Equipment Used cable stack Reps/Minutes 2x15 reps Comments cues for straight arms, max scapular depression Standing Exercises W wall slides Standing Exercise Name W wall slides Side bilateral Reps/Minutes 2x10 reps Comments facing wall; pt lacks ER ROM to make contact with wall facing away resisted GH extension Standing Exercise Name resisted GH extension Side bilateral Resistance level 3 Equipment Used T band Reps/Minutes 12 reps Comments shoulders in neutral rotation resisted row Standing Exercise Name resisted row Side bilateral Resistance level 3 Equipment Used T band Reps/Minutes 2x12 reps Comments shoulders in neutral rotation wall climb Standing Exercise Name wall climb - abd, flex, scaption Side left Reps/Minutes 8 x2 each plane Comments no pain reported; cues to avoid shoulder elevation Self-Care/Home Management Treatment Education Patient Education Home Exercise Program Other Education HEP - RC self-release - supine ER AAROM - towel/strap IR stretch - resisted scapular retraction with external rotation - AROM pronation/supination PT-OP-T Assessment and Plan Start: 05/22/19 17:27 Freq: Status: Active Protocol: Document 07/19/19 17:22 AW (Rec: 07/19/19 17:30 AW [email or web address]) Physical Therapy Assessment Goals Four Impairment Impaired ROM of left shoulder internal rotation Short Term Goal (STG) Pt will improve pain free left ER AROM from 58 to 68 or more . STG Duration 06/26/19 Laser Technician Goal (LTG) Pt will improve pain free left ER AROM to 78 or more LTG Duration 07/31/19 Three Impairment Pt unable to sleep uninterrupted on left side Laser Technician Goal (LTG) Pt will report full night's sleep regardless of position 07/19/19 NOT MET Pt continues to sleep on right side to avoid waking due to pain LTG Duration 07/31/19 Two Impairment Pt with 3/10 constant pain Short Term Goal (STG) Pt will be able to work 8-hour day with 2/10 pain or less 07/05/19 MET - pt worked 12- hour day recently wtih 2-10 pain by end of day STG Duration 06/26/19 Snf Goal (LTG) Pt will be able to work 8-hour day with 1/10 pain or less 07/19/19 MET - Pt worked 10 hour days with 1/10 pain by end of day LTG Duration 07/31/19 One Impairment pt with no HEP Short Term Goal (STG) Pt will be independent with HEP for support of services provided in clinic 07/05/19 PROGRESSING - pt is intermittently performing HEP STG Duration 06/19/19 Assessment Summary Assessment Pt continues to have reduced pain symptoms, but does have popping/clunking with weighted or resisted external rotation . Pt advised to modify activity to be able to lift with neutral rotation when possible. Progressing toward goals. Pt feels he has improved and is happy with progress. Physical Therapy Plan Frequency and Duration Frequency of Treatment 1-2x/week Duration of Treatment 10 weeks Plan of Care Start Date 05/22/19 Plan of Care End Date 07/31/19 Therapeutic Interventions Therapeutic Interventions Home Exercise Program,Joint Mobilizations,Manual Therapy, Neuromuscular Re-education, Patient/Caregiver Education, Self-Care/Home Management, Sensory Integration,Soft Tissue Mobilization,Taping, Therapeutic Activities, Therapeutic Exercises Modalities Cold Pack/Ice Massage,Electric Stimulation,Hot Packs, Ultrasound Next Visit Focus/Plan Next Note Type Discharge Summary Next Visit Plan possible last visit
--- NOTE | 2019-07-26 12:11 | PT.OTN ---
Current Diagnoses Pain in unspecified shoulder (07/26/19) Abnormal posture (07/26/19) Physical Therapy Treatment Note PT-OP-A Visit Information Start: 05/22/19 17:27 Freq: Status: Active Protocol: Document 07/26/19 10:27 AW (Rec: 07/26/19 12:11 AW [email or web address]) Out-Patient Physical Therapy Visit Information Visit Information Visit Type Discharge Summary Visit Note Pt has completed 8 visits with PT and is independent with home exercises for maintenance . Visit Start Time 09:17 Visit Stop Time 10:27 Total Visit Minutes 40 Visit Number 8 Number of MACHINE WHITENER Visits 0 PT-OP-B Current Condition Start: 05/22/19 17:27 Freq: Status: Active Protocol: Document 05/22/19 17:28 AW (Rec: 05/22/19 17:42 AW [email or web address]) Current Condition History of Current Condition Onset Date 2 years ago Current Complaints left shoulder pain History of Current Condition El is a right-handed 74-year- old man who has experienced anterior left shoulder pain on a near constant basis for nearly two years. Pain is typically 2-3/10 and has not improved or worsened in that time. 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 He does not use any pain medications; nor does he find any ice or heat helpful. He is unable to sleep on his left side, but otherwise sleeps well. 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 He does have a remote history of right anterior humeral head dislocation for which he underwent closed reduction. 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 Patient Reported Progress Improving PT-OP-E Functional Tests Start: 05/22/19 17:27 Freq: Status: Active Protocol: Document 05/22/19 17:28 AW (Rec: 05/23/19 17:45 AW [id number]) Functional Tests Apley's Scratch Test Action 3- Left L1 Action 3- Right T8 PT-OP-F Manual Assessment Start: 05/22/19 17:27 Freq: Status: Active Protocol: Document 05/22/19 17:28 AW (Rec: 05/23/19 17:45 AW [id number]) Manual Assessments Soft Tissue Assessment Soft Tissue Mobility Assessment Increased density of bilateral upper traps, left levator scapula, bilateral cervical paraspinals Joint Mobility Assessment Joint Mobility Assessment Painful glenohumeral inferior glides. No other restrictions noted PT-OP-H Neuro Start: 05/22/19 17:27 Freq: Status: Active Protocol: Document 05/22/19 17:28 AW (Rec: 05/23/19 17:45 AW [id number]) Sensation Evaluation Gross Sensation Gross Sensation WNL Vital Signs Blood Pressure Sitting Blood Pressure (90/60-120/80 mmHg) 158/88 H Blood Pressure Source Manual Cuff,Left Upper Extremity PT-OP-J Posture/Palpation/Skin Start: 05/22/19 17:27 Freq: Status: Active Protocol: Document 05/22/19 17:28 AW (Rec: 05/23/19 17:45 AW [id number]) Posture Evaluation Position Sitting Evaluation View Lateral Head/C-Spine Posture Forward Head T-Spine Posture Increased Kyphosis Thorax Posture Bases Flared,Barrel Chested Shoulder Posture (L) Rounded,(R) Rounded Scapula Posture (L) Neutral,(R) Neutral Arm Posture (L) Internally Rotated,(R) Internally Rotated Comments Posture Comments Pt with forward head, bilateral rounded shoulders, excessive use of left upper traps for UE elevation. Right A/C joint is higher than left which is attibutable to remote history of R humeral head anterior dislocation. Left RC musculature shows atrophy compared with right. PT-OP-K Range of Motion Start: 05/22/19 17:27 Freq: Status: Active Protocol: Document 05/22/19 17:28 AW (Rec: 05/23/19 17:45 AW [id number]) Cervical Spine Range of Motion Cervical Spine Active Percentage Testing Position Sitting Comments All c-spine AROM WNL Shoulder Goniometric Range of Motion Shoulder Left Active Testing Position Sitting Flexion 140 Extension 38 Abduction 130 External Rotation at 90 degrees 58 Abduction Internal Rotation 80 Internal Rotation Behind Back (text) L1 Right Active Testing Position Sitting Flexion 157 Extension 40 Abduction 155 External Rotation at 90 degrees 90 Abduction Internal Rotation 90 Internal Rotation Behind Back (text) T8 Shoulder ROM Limitations Shoulder ROM Limitations Pain Elbow/Forearm Range of Motion Elbow/Forearm ROM Limitations Comments Elbow ROM WNL PT-OP-L Special Tests Start: 05/22/19 17:27 Freq: Status: Active Protocol: Document 05/22/19 17:28 AW (Rec: 05/23/19 17:45 AW [id number]) Special Tests Cervical Spine Special Tests Spurling's Test Test Results negative bilaterally Shoulder Special Tests Load and Shift Test Results negative bilaterally Pisano Slick Impingement Test Results positive left; negative right Comments mildly positive with minimal increase in pain Drop Arm Rotator Cuff Test Results positive left; negative right Comments pt able to maintain position momentarily, but with increased activation of upper traps and report of pain Other Special Tests Special Tests Painful arc: positive left at ~120 degrees Infraspinatus MMT: positive with reproduction of posterior shoulder pain PT-OP-M Strength Start: 05/22/19 17:27 Freq: Status: Active Protocol: Document 05/22/19 17:28 AW (Rec: 05/23/19 17:45 AW [id number]) Shoulder Strength Shoulder Manual Muscle Testing Right Flexion 5 Normal Abduction (C5) 5 Normal External Rotation 5 Normal Horizontal Abduction 5 Normal Left Flexion 4+ Good+ Abduction (C5) 4+ Good+ External Rotation 4+ Good+ Internal Rotation 5 Normal PT-OP-Q Treatments Start: 05/22/19 17:27 Freq: Status: Active Protocol: Document 07/26/19 10:27 AW (Rec: 07/26/19 12:11 AW [email or web address]) Cardio Equipment Upper Body Ergometer (UBE) Duration (Minutes) 5 RPM 90 Seat Position 15 Height 3 Therapeutic Exercises Sidelying Exercises sidelyine ER Sidelying Exercise Name sidelying ER Side left Reps/Minutes 2x15 reps Comments pt tolerates well; added 1# weight w/ pt reporting clunk; dc'd sleeper stretch Sidelying Exercise Name sleeper stretch Side left Resistance manual/self Reps/Minutes 30 sec hold x 4 Comments cues to avoid painful range Sitting Exercises scapular depression Sitting Exercise Name scapular depression Side bilateral Resistance 50# Equipment Used cable stack Reps/Minutes 2x15 reps Comments cues for straight arms, max scapular depression scapular retraction Sitting Exercise Name scapular retraction Side bilateral Resistance level 2 Equipment Used t band Reps/Minutes 2x12 reps Comments tension on band; no active ER Standing Exercises resisted GH extension Standing Exercise Name resisted GH extension Side bilateral Resistance level 3 Equipment Used T band Reps/Minutes 12 reps Comments shoulders in neutral rotation resisted row Standing Exercise Name resisted row Side bilateral Resistance level 3 Equipment Used T band Reps/Minutes 2x12 reps Comments shoulders in neutral rotation Self-Care/Home Management Treatment Education Patient Education Home Exercise Program Other Education HEP - RC self-release - sidelying ER AROM - sleeper stretch - resisted scapular retraction with neutral rotation - resisted rows with neutral rotation - resisted GH extension wtih neutral rotation PT-OP-T Assessment and Plan Start: 05/22/19 17:27 Freq: Status: Active Protocol: Document 07/26/19 10:27 AW (Rec: 07/26/19 12:11 AW [email or web address]) Physical Therapy Assessment Goals Four Impairment Impaired ROM of left shoulder internal rotation Short Term Goal (STG) Pt will improve pain free left ER AROM from 58 to 68 or more . STG Duration 06/26/19 Ict Help Desk Officer Goal (LTG) Pt will improve pain free left ER AROM to 78 or more 07/26/19 PARTIALLY MET: ER AROM without pain to 70 degrees LTG Duration 07/31/19 Three Impairment Pt unable to sleep uninterrupted on left side Ict Help Desk Officer Goal (LTG) Pt will report full night's sleep regardless of position 07/19/19 NOT MET Pt continues to sleep on right side to avoid waking due to pain LTG Duration 07/31/19 Two Impairment Pt with 3/10 constant pain Short Term Goal (STG) Pt will be able to work 8-hour day with 2/10 pain or less 07/05/19 MET - pt worked 12- hour day recently wtih 2-10 pain by end of day STG Duration 06/26/19 Intermediate Goal (LTG) Pt will be able to work 8-hour day with 1/10 pain or less 07/19/19 MET - Pt worked 10 hour days with 1/10 pain by end of day LTG Duration 07/31/19 One Impairment pt with no HEP Short Term Goal (STG) Pt will be independent with HEP for support of services provided in clinic 07/05/19 PROGRESSING - pt is intermittently performing HEP STG Duration 06/19/19 Assessment Summary Assessment Pt has completed 8 visits of PT focused on ER range of motion and overall shoulder stability. His pain symptoms have improved and he has less pain when lifting, pulling, carrying with neutral rotation . He continues to experience a clunk with resisted external rotation but has addressed this with activity modification and feels he has made good progress in therapy. He is now independent with a maintenance HEP and has met most goals. He is appropriate for discharge from this plan of care. Educated pt that he may want to consider a referral to orthopedics if shoulder instability worsens or if pain increases significantly and interferes with daily function. Physical Therapy Plan Frequency and Duration Frequency of Treatment 1-2x/week Duration of Treatment 10 weeks Plan of Care Start Date 05/22/19 Plan of Care End Date 07/31/19 Therapeutic Interventions Therapeutic Interventions Home Exercise Program,Joint Mobilizations,Manual Therapy, Neuromuscular Re-education, Patient/Caregiver Education, Self-Care/Home Management, Sensory Integration,Soft Tissue Mobilization,Taping, Therapeutic Activities, Therapeutic Exercises Modalities Cold Pack/Ice Massage,Electric Stimulation,Hot Packs, Ultrasound
== END 2019-07-26 10:45 ==
LOC: PHYS 09:45
PROVIDERS: PCP Internal Medicine; Visit Provider Internal Medicine
DX: M25.519 Pain in unspecified shoulder (principal); R29.3 Abnormal posture
CPT/HCPCS: 97110; 97140; 97161

== ENCOUNTER → 2020-04-23 18:30 | Outpatient (ROUT) | payer MEDICARE, SELFPAY ==
[2018-11-04 15:10] VITALS: BMI 27.0
[2020-04-23 19:25] LABS: HEMOLYSIS < 15 (0-50)
[2020-04-23 19:32] LABS: Aspartate Aminotransferase 27 IU/L (17-59); BUN Creatinine Ratio 16.7 (6-22); Blood Urea Nitrogen 13 mg/dL (9-20); Calcium 8.9 mg/dL (8.4-10.2); Carbon Dioxide 30 mmol/L (22-32); Chloride 102 mmol/L (98-107); Cholesterol 141 mg/dL (140-199); Estimated Glomerular Filt Rate > 60.0 mL/min (>60); Glucose 113 mg/dL (80-110); HDL Cholesterol 34 mg/dL (40-60); LDL Cholesterol Calculated 68 mg/dL (<100); Potassium 4.1 mmol/L (3.4-5.1); Sodium 139 mmol/L (137-145); Triglycerides 193 mg/dL (35-150)
[2020-04-23 20:00] LABS: TSH w/ Reflex to FT4 1.42 uIU/mL (0.47-4.68)
== END ==
PROVIDERS: PCP Internal Medicine; Visit Provider Internal Medicine
DX: I10 Essential (primary) hypertension (principal); E78.2 Mixed hyperlipidemia; R97.20 Elevated prostate specific antigen [PSA]
CPT/HCPCS: 80048; 80061; 84153; 84443; 84450

== ENCOUNTER → 2020-11-15 07:03 | Outpatient (CLI) | payer OTHER, SELFPAY ==
[2018-11-04 15:10] VITALS: BMI 27.0
[2020-11-15 08:29] LABS: Alanine Aminotransferase 355 IU/L (<50); Albumin 3.8 g/dL (3.5-5.0); Albumin Globulin Ratio 1.7 (1.0-2.8); Alkaline Phosphatase 120 U/L (38-126); Aspartate Aminotransferase 505 IU/L (17-59); BUN Creatinine Ratio 16.9 (6-22); Bilirubin Total 0.6 mg/dL (0.2-1.3); Blood Urea Nitrogen 14 mg/dL (9-20); Calcium 9.2 mg/dL (8.4-10.2); Carbon Dioxide 30 mmol/L (22-32); Chloride 105 mmol/L (98-107); Cholesterol 125 mg/dL (140-199); Estimated Glomerular Filt Rate > 60.0 mL/min (>60); Globulin 2.3 g/dL (1.7-4.1); Glucose 93 mg/dL (80-110); HDL Cholesterol 51 mg/dL (40-60); HEMOLYSIS < 15 (0-50); LDL Cholesterol Calculated 60 mg/dL (<100); Sodium 140 mmol/L (137-145); Total Protein 6.1 g/dL (6.3-8.2); Triglycerides 72 mg/dL (35-150)
[2020-11-15 08:59] LABS: Prostate Specific Antigen 4.09 ng/mL (0.10-4.00)
== END ==
PROVIDERS: PCP Internal Medicine; Referring Provider Internal Medicine; Visit Provider Internal Medicine
DX: E78.2 Mixed hyperlipidemia (principal); R97.20 Elevated prostate specific antigen [PSA]; I10 Essential (primary) hypertension
CPT/HCPCS: 36415; 80053; 80061; 84153

== ENCOUNTER → 2020-11-21 12:04 | Outpatient (CLI) | payer OTHER, SELFPAY ==
[2018-11-04 15:10] VITALS: BMI 27.0
--- NOTE | 2020-11-21 12:05 | DI.US.S_ITS ---
PROCEDURE: US ABDOMEN COMPLETE INDICATIONS: ABNORMAL LFTS TECHNIQUE: Real-time scanning was performed of the abdominal and retroperitoneal organs, with image documentation. COMPARISON: [facility], CT, ABDOMEN/PELVIS WITH CONTRAST, 04/27/2013, 10:01. FINDINGS: Liver: Liver is normal in size and demonstrates diffuse increased echotexture. Gallbladder: Surgically absent. Biliary ducts: Intrahepatic bile ducts are non-dilated. Extrahepatic bile duct caliber measures 8.9 mm. Normal is 6-7 mm or less in diameter, or 10 mm or less post-cholecystectomy. Pancreas: Obscured by overlying bowel gas. Spleen: Spleen is normal in size and homogeneous in echotexture. Kidneys: Kidneys are normal in size and echotexture. Right kidney measures 11.4 cm long; left kidney measures 12.1 cm long. No hydronephrosis. 3 nonobstructive stones are seen in right kidney. No solid masses. Aorta: Visualized aorta is normal in caliber at less than 3 cm. Iliacs: Proximal common iliac arteries are normal in caliber at less than 2.5 cm. IVC: Intrahepatic inferior vena cava is patent. Miscellaneous: No free abdominal fluid. IMPRESSION: 1. Diffusely increased hepatic echotexture. This finding is most likely secondary to hepatic fatty infiltration although other hepatocellular disease may have a similar appearance. Recommend clinical correlation. 2. Nonobstructive renal calculi. No hydronephrosis. 3. Cholecystectomy. Dilated common bile duct is most likely secondary to postsurgical change. 4. Pancreas is obscured by overlying bowel gas. Dictated by: Darnell Dorantes M.D. on 11/21/2020 at 14:29 Approved by: Darnell Dorantes M.D. on 11/21/2020 at 14:33
--- NOTE | 2020-11-21 12:05 | DI.RAD.S_ITS ---
PROCEDURE: FL BARIUM SWALLOW W AIR COMPARISON: None. INDICATIONS: dysphagia FINDINGS: Initial air-contrast technique was utilized and thereafter prone single-contrast technique was utilized. There is a moderate sliding hiatal hernia, with a fixed narrowing just above the superior margin of the upper aspect of the hiatal hernia which rim is eyes predominantly within the lower chest. A Schatzki ring was observed at this site, and there was episodic bvng-xj-mavtwvgr gastroesophageal reflux through the area of stricture. No esophageal mass or erosion or nodularity is seen. A 13 mm calibrated barium tablet was impinged upon by the stricture and delay in transit of the tablet into the gastric lumen was moderate. IMPRESSION: There is a sliding hiatal hernia, moderate in severity, and an associated ljud-rt-ymyxmsbq degree of spontaneous and elicited gastroesophageal reflux. A 13 mm barium tablet was transiently fixed in position by a mhss-yf-bqoesjpd stricture at the shot ski ring area of the esophagogastric junction. As noted above nodularity/irregularity of the distal esophagus is not seen that would indicate a high likelihood of malignant etiology. However, given the reflux observed, and the patient report of progressive worsening of symptomatology esophageal endoscopic evaluation for mucosal level abnormalities and also consideration of balloon dilatation of the distal esophageal stricture is recommended. Dictated by: Juvenal Grossman M.D. on 11/21/2020 at 14:24 Approved by: Juvenal Grossman M.D. on 11/21/2020 at 14:28
== END ==
PROVIDERS: PCP Internal Medicine; Referring Provider Internal Medicine; Visit Provider Internal Medicine
DX: R13.10 Dysphagia, unspecified (principal); R74.01 Elevation of levels of liver transaminase levels; R94.5 Abnormal results of liver function studies; K83.8 Other specified diseases of biliary tract; K44.9 Diaphragmatic hernia without obstruction or gangrene; K21.9 Gastro-esophageal reflux disease without esophagitis; N20.0 Calculus of kidney; Z90.49 Acquired absence of other specified parts of digestive tract
CPT/HCPCS: 74221; 76700

== ENCOUNTER → 2020-12-14 08:03 | Outpatient (CLI) | payer OTHER, SELFPAY ==
[2018-11-04 15:10] VITALS: BMI 27.0
[2020-12-14 09:35] LABS: Alanine Aminotransferase 228 IU/L (<50); Albumin 3.6 g/dL (3.5-5.0); Albumin Globulin Ratio 1.4 (1.0-2.8); Alkaline Phosphatase 219 U/L (38-126); Aspartate Aminotransferase 216 IU/L (17-59); BUN Creatinine Ratio 17.1 (6-22); Bilirubin Total 0.8 mg/dL (0.2-1.3); Bilirubin Unconjugated 0.6 mg/dL (0.0-1.1); Blood Urea Nitrogen 14 mg/dL (9-20); Calcium 9.2 mg/dL (8.4-10.2); Carbon Dioxide 29 mmol/L (22-32); Chloride 106 mmol/L (98-107); Estimated Glomerular Filt Rate > 60.0 mL/min (>60); Globulin 2.5 g/dL (1.7-4.1); Glucose 97 mg/dL (80-110); HEMOLYSIS < 15 (0-50); Potassium 4.5 mmol/L (3.4-5.1); Sodium 139 mmol/L (137-145); Total Protein 6.1 g/dL (6.3-8.2)
== END ==
PROVIDERS: PCP Internal Medicine; Referring Provider Internal Medicine; Visit Provider Internal Medicine
DX: R94.5 Abnormal results of liver function studies (principal)
CPT/HCPCS: 36415; 80048; 80076

== ENCOUNTER → 2020-12-27 12:33 | Outpatient (CLI) | payer OTHER, SELFPAY ==
[2018-11-04 15:10] VITALS: BMI 27.0
--- NOTE | 2020-12-27 | DI.CT.S_ITS ---
PROCEDURE: CT UE LT WO CON INDICATIONS: Pain in left shoulder/ TECHNIQUE: Noncontrast 1-1.5 mm thick sections acquired from the acromioclavicular joint to the inferior scapula, with coronal and sagittal reformatting. COMPARISON: None. FINDINGS: Image quality: Excellent. Bones: No acute fracture. Incidental os acromiale noted. There is severe glenohumeral degenerative joint disease with dxvv-mm-otxq appearance, prominent subchondral sclerosis and spurring. Moderate AC osteoarthritis Soft tissues: Visualized left lung grossly unremarkable. Sub 5 mm loose bodies or ununited osteophytes seen at the axillary pouch. IMPRESSION: Severe left shoulder osteoarthritis. Incidentally noted os acromiale Possible small loose bodies versus ununited osteophytes seen at the inferior glenoid. Dictated by: Torrey Sapp M.D. on 12/27/2020 at 14:30 Approved by: Torrey Sapp M.D. on 12/27/2020 at 14:32
[2020-12-27 14:29] LABS: Ferritin 90 ng/mL (18-464)
[2020-12-28 05:13] LABS: Ceruloplasmin 18.7 mg/dL (16.0-31.0); Hepatitis A Antibody Total Negative (Negative)
[2020-12-28 07:47] LABS: HCV AB <0.1 s/co ratio (0.0-0.9)
[2020-12-28 08:12] LABS: EBV Virus IgG Ab > 600.0 U/mL (0.0-17.9); EBV Virus IgM Ab < 36.0 U/mL (0.0-35.9)
[2020-12-28 19:06] LABS: Tissue Transglutaminase IgA <2 U/mL (0-3)
[2020-12-29 15:45] LABS: ANA Screen, IFA Negative (.)
[2020-12-30 12:43] LABS: Anti Mitochondrial ABY IGG <20.0 Units (0.0-20.0); Smooth Muscle Antibody 3 Units (0-19)
[2020-12-31 19:51] LABS: Hepatitis B Surface Antigen NEGATIVE s/c (NEGATIVE)
== END ==
PROVIDERS: Internal Medicine Gastroenterology; PCP Internal Medicine; Referring Provider Orthopaedic Surgery; Visit Provider Orthopaedic Surgery
DX: M25.512 Pain in left shoulder (principal); M19.012 Primary osteoarthritis, left shoulder; R94.5 Abnormal results of liver function studies
CPT/HCPCS: 36415; 73200; 82390; 82728; 83516; 86038; 86376; 86644; 86645; 86664; 86665; 86708; 86803; 87340

== ENCOUNTER → 2021-01-28 11:21 | Outpatient (CLI) | payer OTHER, SELFPAY ==
[2018-11-04 15:10] VITALS: BMI 27.0
[2021-01-28 11:52] LABS: Add Manual Diff / Slide Review NO; Basophils Absolute Auto 0 /uL (0-100); Basophils Percent Auto 0.6 % (0-2); Eosinophils Absolute Auto 200 /uL (0-450); Eosinophils Percent Auto 3.9 % (2-4); Hematocrit 41.5 % (41-53); Hemoglobin 13.8 g/dL (13.5-17.5); Lymphocytes Absolute Auto 1100 /uL (1100-4500); Lymphocytes Percent Auto 22.1 % (25-40); Mean Corpuscular HGB Conc 33.2 % (30-36); Mean Corpuscular Hemoglobin 31.9 PG (26-34); Monocytes Absolute Auto 700 /uL (0-900); Monocytes Percent Auto 13.9 % (3-14); Neutrophils Absolute Auto 3100 /uL (1500-7000); Neutrophils Percent Auto 59.5 % (50-75); Platelet Count 199 X10^3/uL (150-400); Red Blood Cell Count 4.32 X10^6/uL (4.5-5.9); Red Cell Distribution Width 13.4 % (11.6-14.8); White Blood Cell Count 5.2 X10^3/uL (4.5-11.0)
[2021-01-28 12:11] LABS: BUN Creatinine Ratio 24.3 (6-22); Blood Urea Nitrogen 18 mg/dL (9-20); Carbon Dioxide 28 mmol/L (22-32); Chloride 107 mmol/L (98-107); Estimated Glomerular Filt Rate > 60.0 mL/min (>60); Glucose 116 mg/dL (80-110); HEMOLYSIS 19 (0-50); Potassium 3.9 mmol/L (3.4-5.1); Sodium 141 mmol/L (137-145)
[2021-01-28 16:00] LABS: Hemoglobin A1C% w Est Avg Glu 5.7 % (4.0-6.0)
== END ==
PROVIDERS: PCP Internal Medicine; Referring Provider Orthopaedic Surgery; Visit Provider Orthopaedic Surgery
DX: Z01.818 Encounter for other preprocedural examination (principal); R73.9 Hyperglycemia, unspecified; M25.512 Pain in left shoulder; Z01.812 Encounter for preprocedural laboratory examination
CPT/HCPCS: 36415; 80048; 83036; 85025; 93005; 93010

== ENCOUNTER → 2021-02-15 09:04 | Outpatient (CLI) | payer OTHER, SELFPAY ==
[2021-02-06 09:35] VITALS: BMI 27.0
[2021-02-15 11:40] LABS: COVID19 -Nasal RAPID Negative (Negative)
== END ==
PROVIDERS: PCP Internal Medicine; Referring Provider Physician Assistant; Visit Provider Physician Assistant
DX: Z01.812 Encounter for preprocedural laboratory examination (principal); Z20.822 Contact with and (suspected) exposure to COVID-19
CPT/HCPCS: 87635

== ENCOUNTER 2021-02-17 10:47 | Inpatient (IN) | payer OTHER, SELFPAY ==
[2018-11-04 15:10] VITALS: BMI 27.0
[2021-02-06 07:34] VITALS: BMI 27.2
[2021-02-06 09:35] VITALS: BMI 27.0
[2021-02-17] VITALS (14 sets, daily range): BP systolic 104–153; BP diastolic 65–94; PULSE 83–98; RESP 12–20; TEMP 36.1–37.1; O2SAT 88–97; BMI 27.2
--- NOTE | 2021-02-17 06:00 | DI.RAD.S_ITS ---
PROCEDURE: XR SHOULDER LT 1V INDICATIONS: post op total shoulder TECHNIQUE: 1 view of the shoulder were acquired. COMPARISON: [facility], CT, CT UE LT WO CON, 12/27/2020, 12:51. [facility], CR, XR SHOULDER 2+ VIEWS LEFT, 12/19/2020, 8:45. FINDINGS: Bones: Postsurgical changes are seen from interval conventional left shoulder arthroplasty. The alignment appears normal on this single view. Soft tissues: Postoperative findings are seen in the soft tissues overlying the shoulder. IMPRESSION: Status post left shoulder arthroplasty with expected findings. Dictated by: Raheem Ryan M.D. on 02/17/2021 at 18:16 Approved by: Raheem Ryan M.D. on 02/17/2021 at 18:18
[2021-02-17] MEDS: PREGABALIN 75 MG CAPSULE PO (11:18)
[2021-02-17] MEDS: LACTATED RINGERS 1,000 ML 42 ML IV (11:18)
[2021-02-17] MEDS: ACETAMINOPHEN 325 MG TABLET 975 MG PO (11:18)
[2021-02-17] MEDS: CELECOXIB 200 MG CAPSULE PO (11:18)
--- NOTE | 2021-02-17 11:52 | PM.PREOP ---
Pre-operative Note COVID-19 COVID-19 status: Negative Result date/Date tested (Pos, Neg/Pending): 02/15/21 Interval Note History & Physical reviewed/Exam performed by Physician: Yes Changes to H&P: No
--- NOTE | 2021-02-17 12:02 | PM.OP.1 ---
Operative Date/Time/Diagnoses Date of procedure: 02/17/21 Time of procedure: 14:38 Pre-op diagnosis: Left shoulder osteoarthritis Post-op diagnosis: same Procedure & Clinicians Procedure: Left total shoulder replacement Same procedure as scheduled: Yes Indications: The patient has had progressively worsening left shoulder pain with radiographic changes consistent with arthritis. Non-operative management has failed and the patient has requested total shoulder replacement. The risks, benefits and alternatives to surgery were discussed with the patient prior to proceeding. Risks discussed included, but were not limited to, failure to relieve pain, stiffness, infection, nerve damage, deep venous thrombosis, pulmonary embolism, stroke, coma, heart attack, permanent paralysis and , as well as the potential need for eventual revision of the prosthetic. Surgeon: Sheldon Mclaughlin Configuration Management Specialist: Cameron Watkins Anesthesia Type: General, Peripheral nerve block and Local Operative Notes Findings: Severe left shoulder osteoarthritis Closure Type: primary Specimen(s): none sent Prosthetic devices, grafts, tissues, transplants, or devices: Prosthetics used during this procedure were manufactured by the [employer] and included an [employer] Eclipse stem was total shoulder system with a [employer] VaultLock large glenoid, an Eclipse 47/18 humeral head, a 47 trunion, and a large cage screw. In addition a SpeedBridge set was used for subscapularis closure with 4 SwiveLock anchors. Applied: implant(s) Estimated Blood Loss (mL): 100 Blood products transfused: none Procedure in detail: The patient was seen in the pre-operative area, where the patient identified the left shoulder as the operative site and this was marked with my initials. The patient received pre-operative antibiotics, underwent an interscalene block, and was taken to the operating room and placed on the operative table in the supine position. After satisfactory anesthesia, a full ?time out? was performed. The patient was repositioned in the ?beach chair? position using a dedicated positioner. All pressure points were well padded, and the knees were slightly bent to prevent tension on the sciatic nerves. The left arm was prepared from the fingers to the base of the neck with ChloroPrep in the usual fashion and draped through sterile drapes. An approximately 15 cm incision was created, starting at the clavicle above the coracoid process and extended towards the deltoid insertion. The deltopectoral interval was used to access the shoulder. The cephalic vein was taken medially. A self retaining retractor was placed. The upper centimeter of the pectoralis major tendon was released. The ?three sisters? were identified and cauterized. The axillary nerve was palpated and protected throughout the case. The biceps was released from its groove and tenodesed over the top of the pectoralis major tendon. The subscapularis was released from the lesser tuberosity with a subscapularis peel and tagged for later repair. The shoulder was dislocated and a cutting guide was used for the proximal humeral osteotomy in 30 degrees of retroversion. The humeral Sizer was used to determine it was a 47 mm diameter head. The central scoring for the screw was then placed. A proximal humeral protector was then placed. We then removed the self-retaining retractor and placed retractors to access the glenoid. The subscapularis was released with a ?360 degree release? with care being taken to protect the axillary nerve with the inferior portion of this procedure. The remnant of labrum and biceps stump were removed. The appropriate size reamer was chosen with the glenoid sizer, and the guide pin placed. The glenoid was appropriately reamed. The center hole was enlarged. The upper hole and the lower groove were then created. The trial glenoid was placed with good stability. We then cemented the final implant into place after irrigating the peg holes and drying them with thrombin-soaked Gelfoam. The central peg was coated with bone graft for ingrowth. We returned our attention to the humerus, the proximal humeral protector was removed. The appropriate trunion was impacted into position. The central cage screw was then placed and tightened. A trial humeral head was applied and a trial reduction performed. Stability was checked with 50% posterior translation with spontaneous reduction, 50? external rotation at the side with the subscapularis held in the repaired position and 70? of internal rotation in abduction. This was felt to be satisfactory and the appropriate implants were opened. The guide for placement of the anchors was applied to the humeral neck. The holes for the anchors were then placed. The joint was irrigated 1 final time. The medial row anchors were placed and the sutures placed through the subscapularis in the appropriate position. The upper edge of the subscapularis was repaired to the anterior supraspinatus with a leoify-me-coaml #2 Ethibond suture. The lateral row anchors were then placed in a suture bridge configuration to repair the subscapularis. The retention sutures on the medial anchors were then tied to reinforce the medial row. The wound was again irrigated. The deltopectoral interval was closed with interrupted 0 Vicryl. The subcutaneous layer was closed with 3-0 Vicryl, and the skin with a running 3-0 V-Lock suture and Dermabond. An Aquacel Ag dressing was applied, the patient?s arm was placed in a sling, and the patient was taken to recovery having tolerated the procedure well. Complications: none Post-operative Condition: stable Disposition: PACU Plan for aftercare: The patient will be maintained on a standard total shoulder replacement protocol with passive range of motion limited to 90 degrees forward flexion, 0 degrees external rotation at the side, 0 degrees abduction and internal rotation to the body. The patient will receive aspirin and sequential compression devices for DVT prophylaxis. The patient will be discharged home when safe for the home environment, likely tomorrow.
[2021-02-17] MEDS: CEFAZOLIN 1 GM VIAL 2 GM IV (12:50)
[2021-02-17] MEDS: TRANEXAMIC ACID 1,000 MG VIAL 1000 MG INJ ×2 (12:51→14:14)
--- NOTE | 2021-02-17 13:00 | SUR.OPER ---
Beach chair with Alondra/Nancy shoulder positioner. Lower body on padded OR bed. Head in foam padded head cradle, secured with straps. Non-operative arm secured <90 degrees abduction. Pillow under knees. Safety belt at thigh. Cloth tape over blanket over lower legs.
--- NOTE | 2021-02-17 13:04 | SUR.PREOP ---
Block start time 1230 . Monitoring initiated and maintained throughout procedure. Oxygen at 2L nasal cannula and medications given by anesthesiologist . Patient remained stable throughout procedure, no adverse reactions noted. Block end time 1238.
[2021-02-17] MEDS: THROMBIN (RECOMBINANT) 5,000 UNIT VIAL 5000 UNIT TOP (13:16)
[2021-02-17] MEDS: BUPIVACAINE 0.5% (PF) VIAL 30 ML INJ (13:17)
--- NOTE | 2021-02-17 13:29 | P.PCN_ITS ---
Procedures Date/Time Date of procedure: 02/17/21 Time of procedure: 12:35 Nerve Block Time out performed: Yes Local anesthetic used: other (15mL 0.5opivacaine, 5mL 2* idocaine) Location of anesthetic used: interscalene Amount of anesthesia used (mL): 20 Nerve blocks: brachial plexus (interscalene) Procedure successful: Yes Patient tolerated procedure: well Complications: none Additional comments: Brachial plexus nerve block for post operative pain management. Risks and benefits discussed, including bleeding, infection, intravascular injection, nerve damage, block failure. Standard ASA monitors, NC O2. Pt supine. Chloroprep site preparation, sterile technique. Brachial plexus identified with US guidance, traced from supraclavicular to interscalene. 1mL 2% lidocaine skin wheal. 22g x 50mm Pajunk advanced with in-plane US guidance to brachial plexus. Negative aspiration. LA injected with intermittent negative aspiration. Good LA spread noted on US. No pain, no paraesthesia. Pt tolerated procedure well. Vital signs stable.
--- NOTE | 2021-02-17 14:53 | SUR.PHASEI ---
Stable PACU stay, pt ready to go, kept in PACU due to change of shift.
--- NOTE | 2021-02-17 14:56 | SUR.PHASEI ---
Attempted to ewean off 02, lung sounds decreased l base.
--- NOTE | 2021-02-17 15:16 | SUR.PHASEI ---
Pt states pain 2/10, refused need for pain meds, tolerated po fluids.
--- NOTE | 2021-02-17 15:38 | SUR.PHASEI ---
Pt transported up to room 214 on 02 at 1l per nasal cannula. Pt left with SAADIA SINGH in stable condition, Bed low, locked and SCD's on.
[2021-02-17] MEDS: LACTATED RINGERS 1,000 ML 100 ML IV (17:16)
[2021-02-17] MEDS: ATORVASTATIN 20 MG TABLET PO (17:31)
[2021-02-17] MEDS: lisinopriL 20 MG TABLET 40 MG PO (17:31)
[2021-02-17] MEDS: IBUPROFEN 400 MG TABLET PO ×2 (17:32→21:13)
[2021-02-17] MEDS: ACETAMINOPHEN 325 MG TABLET 650 MG PO ×2 (17:32→21:13)
[2021-02-17] MEDS: AMLODIPINE 5 MG TABLET PO (17:36)
[2021-02-17] MEDS: ASPIRIN EC 81 MG TABLET PO (21:12)
--- NOTE | 2021-02-17 21:13 | PC.NURSE ---
Pt satisfactory post op course. Denies discomfort when asked. Lungs clear, SpO2 98% RA Josias dsg to left shoulder CDI Call light w/in reach, bed alarm on for pt safety. Continue w/plan of care.
[2021-02-17] MEDS: DOCUSATE 100 MG CAPSULE PO (21:14)
[2021-02-18] MEDS: IBUPROFEN 400 MG TABLET PO ×3 (00:48→09:20)
[2021-02-18] MEDS: LACTATED RINGERS 1,000 ML 100 ML IV (02:54)
[2021-02-18 04:00] VITALS: BP 131/83; PULSE 87; RESP 17; TEMP 36.2; O2SAT 93
[2021-02-18 04:58] LABS: Hematocrit 40.9 % (41-53); Hemoglobin 13.6 g/dL (13.5-17.5)
[2021-02-18] MEDS: PANTOPRAZOLE DR 20 MG TABLET PO (06:41)
--- NOTE | 2021-02-18 07:36 | PM.DS.1 ---
History of Present Illness History of Present Illness Date Patient Seen: 02/18/21 Time Patient Seen: 07:36 Chief complaint: INPT Narrative: The history and physical is contained in the chart previously completed note. Please refer to that note for this information. Discharge Providers Provider Date of admission: 02/17/21 10:47 Discharge Date: 02/18/21 Primary care physician: Meet Davis MD Consults: 02/17/21 16:47 Consult to Discharge Planning Routine Comment: Consult to Physical Therapy Evaluate & Treat Comment: Physician Instructions: pendulums, 90 FF, 0 ER, 0 abd, IR to body Discharge provider: Sheldon Mclaughlin MD Summary Hospital Course Discharge Diagnosis: 1. Left shoulder osteoarthritis 2. Mild post hemorrhagic anemia Hospital Course: Patient was admitted to the hospital and taken directly to the operating room on February 17, 2021. He underwent a left total shoulder replacement without complications. On postoperative day 1 he was stable and ready for discharge home. Status at Discharge Cognitive/behavioral status at discharge: at baseline, oriented Functional status at discharge: independent ambulation Overall status at discharge: patient is progressing back to baseline Time Spent with Patient Time spent: Less than 30 minutes Exam Vital Signs (past 8 hours): - 02/18/21 04:00 Temperature 97.2 F L Pulse Rate 87 Respiratory Rate 17 Blood Pressure 131/83 Pulse Oximetry 93 Oxygen Delivery Method Room Air Oxygen Flow Rate 0 Narrative Exam Narrative: Left shoulder wound is dressed with no drainage on the bandage. Light touch is intact in the radial, ulnar, median, muscular cutaneous and axillary nerve distribution. He can extend his thumb, abduct his thumb, abduct his fingers and can fire his biceps and deltoid. Objective Labs Result Diagrams: 02/18/21 04:45 Labs: Laboratory Results - last 24 hr 02/18/21 04:45 Hgb 13.6 Hct 40.9 L PFSH Medical History (Updated 02/06/21 @ 08:07 by Shraddha Chaves RN) Elevated liver enzymes Elevated PSA (~2012) Essential hypertension (~2000) Finger amputation, no complication History of adenomatous polyp of colon History of kidney stones HTN (hypertension) Mixed hyperlipidemia Schatzki's ring (~01/2021) Shoulder pain (~2017) Vision disorder Surgical History (Updated 02/06/21 @ 07:36 by Shraddha Chaves RN) Anesthesia History of cholecystectomy (~2003) History of hand surgery (~1958) History of surgery (~03/1995) S/P inguinal hernia repair Family History (Updated 11/07/20 @ 20:31 by Amee Merritt) Father Congestive heart failure Mother Congestive heart failure Social History household members: spouse Smoking Status: Never smoker alcohol intake: never substance use type: does not use Discharge Assessment & Plan Assessment and Plan Assessment: The patient is stable postoperative day 1 status post left total shoulder replacement. He is ready for discharge. Plan of Treatment: Discharge to home with follow-up in my office in 2 weeks. Discharge prescriptions for oxycodone have been sent to his pharmacy. He he has been instructed in the use of Tylenol and ibuprofen for pain relief and the use of low-dose aspirin for DVT prophylaxis. Discharge Plan Discharge Plan Patient Disposition: Home Discharge orders & Medications Prescriptions: New acetaminophen 325 mg Tablet 650 mg PO TID 30 Days Qty: 180 RF: 0 aspirin 81 mg Tablet,Delayed Release (Dr/Ec) 81 mg PO BID 42 Days Qty: 84 RF: 0 ibuprofen 400 mg Tablet 400 mg PO Q4HR 30 Days RF: 0 oxycodone 5 mg Tablet 5 mg PO Q4H PRN (Reason: Pain, Moderate (4-6)) Qty: 40 RF: 0 Continued multivitamin Tablet 1 tab PO DAILY Qty: 0 RF: 0 ascorbic acid (vitamin C) 1,000 mg tablet 1 g PO DAILY RF: 0 rosuvastatin 10 mg tablet 10 mg PO QPM RF: 0 amlodipine 5 mg tablet 5 mg PO QPM RF: 0 glucosamine [id number]-aib-ulheqaotfy 1 tab PO DAILY RF: 0 turmeric-turmeric root extract 450-50 mg Capsule 1 cap PO BID RF: 0 lisinopril 40 mg tablet 40 mg PO QPM RF: 0 hydrochlorothiazide 12.5 mg tablet 12.5 mg PO Q OTHER DAY RF: 0 omeprazole 20 mg capsule,delayed release(DR/EC) 20 mg PO Q OTHER DAY RF: 0 Fish Oil 900-1,400 mg Capsule,Delayed Release(Dr/Ec) 1 cap PO DAILY Qty: 0 RF: 0 Collagen capsule 2,000 mg PO BID RF: 0 cholecalciferol (vitamin D3) [Vitamin D3] 1,000 unit Capsule 1,000 unit PO DAILY RF: 0 coenzyme Q10 [CoQ-10] 100 mg Capsule 300 mg PO DAILY Qty: 0 RF: 0 Follow up/Referrals: Meet Davis MD [Primary Care Provider] - Sheldon Mclaughlin MD [Physician] - 2 Weeks Discharge Health Status Multidrug resistant organism: No MDRO Diet/Activity/Treatments Diet: Diet as Tolerated and Regular Activity: You may use your left arm in front of your body below shoulder level. You may lift 1-2 lb with your left hand. Cold/Heat Therapy: You may apply ice to your left shoulder for 15 minutes every hour as needed for pain control. Skin/Wound/Dressing Care Report to your healthcare provider any signs of infection, such as:: chills, fever, night sweats, increased pain, unusual drainage and unusual redness Dressing: Leave the dressing intact until follow-up. You may shower with the dressing in place. If the central strip of the dressing becomes saturated with either water or blood, please call the office to have it evaluated. Visit Report/Discharge Packet Instructions: DI for Constipation, How to Prevent Falls, DI for Prescription Opioid Use, DI for Shoulder Replacement Stand Alone Forms: Surgery Discharge Discharge Data Primary Care Provider: Meet Davis
[2021-02-18 08:00] VITALS: BP 110/69; PULSE 78; RESP 16; TEMP 36.6; O2SAT 97
[2021-02-18] MEDS: ACETAMINOPHEN 325 MG TABLET 650 MG PO (09:19)
[2021-02-18] MEDS: ASPIRIN EC 81 MG TABLET PO (09:19)
[2021-02-18] MEDS: DOCUSATE 100 MG CAPSULE PO (09:19)
--- NOTE | 2021-02-18 09:25 | PT.IIE ---
Current Diagnoses Primary osteoarthritis, left shoulder (02/17/21) Surgery Performed Operation Date: 02/17/21 12:45 Actual Procedures p Total Shoulder Arthroplasty(Left) - Sheldon Mclaughlin MD Surgical History (Last Updated 02/06/21 @ 07:36 by Shraddha Chaves, RN) Anesthesia Medical History (Last Updated 02/06/21 @ 08:07 by Shraddha Chaves RN) Elevated liver enzymes Elevated PSA (~2012) Essential hypertension (~2000) Finger amputation, no complication History of adenomatous polyp of colon History of kidney stones HTN (hypertension) Mixed hyperlipidemia Schatzki's ring (~01/2021) Shoulder pain (~2017) Vision disorder Physical Therapy Inpatient Evaluation/Re-Eval M1 PT/OT-IP Prior Functional Status Start: 02/18/21 13:14 Freq: NEEDED Status: Active Protocol: Document 02/18/21 09:25 AB (Rec: 02/18/21 13:25 AB [id number]) Medical Review Prior Functional Status Medical History Reviewed Yes Communication able to make needs known Mobility and Gait pt stated that he is independent with all mobilities and ambulation without AD Social History Household Members spouse Living Arrangements House Number of Floors (Floors) One Floor Number of Stairs To Enter/Railing? 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 M2 PT-IP Current Condition Start: 02/18/21 13:14 Freq: NEEDED Status: Active Protocol: Document 02/18/21 09:25 AB (Rec: 02/18/21 13:25 AB [email or web address]) Physical Therapy Current Condition Current Condition Evaluation Date 02/18/21 Treatment Diagnosis s/p L TSA; difficulty in walking Onset Date 02/17/21 Precautions Shoulder Precautions Sling,PROM,Internal Rotation to Body,No External Rotation, No Abduction,Forward Flexion to 90 degrees,Pendulums Weight Bearing Status Weight Bearing Status Non-Weight Bearing Allowed Weight Bearing Amount (enter % LUE NWB or #) (%) M3 PT-IP Subjective Start: 02/18/21 13:14 Freq: NEEDED Status: Active Protocol: Document 02/18/21 09:25 AB (Rec: 02/18/21 13:25 AB [email or web address]) Subjective Physical Therapy Visit Type Type Initial Evaluation Visit Start Time 09:25 Visit Stop Time 11:10 Total Visit Minutes 60 Notes pt seen for split visits: 925 to 950 am and 1035 to 1110 am; initiated PT eval but have to come back to caregiver training Number of BUSINESS RISK CONSULTANT Visits 0 Physical Therapy Visit Comments Patient Comments pt is agreeable to do PT Therapy Pain Assessment Pain When Pain Assessed At Rest Pain Present Pain Present Pain Reported Location l shoulder Intensity 2 Scale Used Numeric (0 - 10) Pain Management Techniques Apply Cold,Distraction, Modification of Treatment,Re- positioning,Timing of Activity with Medications M4 PT-IP Mobility and Gait Start: 02/18/21 13:14 Freq: NEEDED Status: Active Protocol: Document 02/18/21 09:25 AB (Rec: 02/18/21 13:25 [email or web address]) PT-Bed Mobility Assessment Supine to Sit Supine to Sit Standby Assistance Sit to Supine Sit to Supine Standby Assistance PT-Transfer Assessment Sit to and From Stand Sit to and from Stand Standby Assistance Equipment Transfer Assistive Device None Orthotic/Prosthetic Devices or Brace: Yes Comments Mobility Comments educated pt and spouse regarding shoulder precautions . caregiver training conducted regarding sling managment. pt completed elbow/wrist/hand exercises. educated pt on pendulum exercise but pt unable to fully relax LUE to do pendulum but able to dangle UE. spouse was able to love sling on. pt complete bed mobility sit<>supine SBA. ambulated in room without AD SBA ~ 50 ft. Left pt with spouse in room. informed nurse regarding pt's mobility. Gait Assessment Gait Gait Assistance Required: Standby Assistance Distance (Feet) 50 Able to Maintain Weight Bearing Status Yes During Gait Assistive Devices Assistive Device None Orthotic/Prosthetic Devices or Brace: Yes PT-Balance Assessment Sitting Balance and Reactions Static Sitting Balance Ability Normal Dynamic Sitting Balance Ability Normal Standing Balance and Reactions Static Standing Balance Ability Good Dynamic Standing Balance Ability Good Device Used without AD M5 PT-IP Objective Assessments Start: 02/18/21 13:14 Freq: NEEDED Status: Active Protocol: Document 02/18/21 09:25 AB (Rec: 02/18/21 13:25 [email or web address]) Orientation Orientation/Cognition Level of Alertness Alert Orientation Name,Place,Situation Language Function Ability No Deficits Noted Safety Awareness Understands Safety Issues Memory Description No Deficits Noted Gross Range of Motion Lower Extremity ROM Assessment Within Functional Limits Strength Lower Extremity Strength Assessment Within Functional Limits Sensation Assessment Sensation Gross Sensation WNL Muscle Tone Muscle Tone WNL Yes M6 PT-IP Treatment Start: 02/18/21 13:14 Freq: NEEDED Status: Active Protocol: Document 02/18/21 09:25 AB (Rec: 02/18/21 13:25 AB [id number]) Physical Therapy Treatment Exercises Exercises Shoulder Pendulums,Elbow Flexion/Extension,Wrist ROM, Hand ROM Education Education Provided Precautions,Weight Bearing Status,Post-Op Packet,Safety M7 PT-IP Assessment and Plan Start: 02/18/21 13:14 Freq: NEEDED Status: Active Protocol: Document 02/18/21 09:25 AB (Rec: 02/18/21 13:25 AB [id number]) PT Summary Assessment and Plan Potential Rehabilitation Potential Good Status of Condition at Evaluation Stable Summary Impairments Pain,ROM,Strength,Balance, Coordination,Sensation,Tone, Cognition,Bed Mobility, Transfers,Gait,Activity Tolerance Assessment Summary pt requiring SBA with mobility without AD. caregiver training conducted with spouse . pt may go home when medically stable. Goals Bed Mobility Goal Independent Transfer Goal Independent Gait Goal Independent Gait Distance 250 Days to Meet Goals 3 Frequency of Treatment Frequency Of Treatment Twice a Day Treatment Plan Physical Therapy Treatment Plan Bed Mobility Training,Transfer Training,Gait Training, Therapeutic Exercise,Balance Retraining,Post Op Education, Discharge Planning,Hot or Cold Pack,Neuromuscular Re-ed, Coordination Retraining,Manual Therapy Precautions Shoulder Precautions Sling,PROM,Internal Rotation to Body,No External Rotation, No Abduction,Forward Flexion to 90 degrees,Pendulums Other Precautions NWB LUE Recommendations To Nursing Amount of Assist Needed Standby Assistance Discharge Recommendations PT Discharge Recommendations Home with Assistance, Outpatient PT Transportation Needs at Discharge Private Vehicle
--- NOTE | 2021-02-18 11:39 | PC.NURSE ---
Pending discharge: Pt feels ready to d/c home. Seen by MD Mclaughlin and given d/c instructions. Seen by PT and given their instructions. Pt has his sling on and it fits. Able to void w/out diff. Tolerates diet w/out problems. Routine tylenol and acetaminophen have been effective for controlling pain. Pt is aware he had a block and the block will be wearing off over the next day or two. He may need the oxycodone then. Dressing is intact to the shoulder and he received wound care instructions. Reviewed d/c packet. Rx has been esent. Questions answered. He is readied for discharge.
--- NOTE | 2021-02-18 13:29 | PC.NURSE ---
D/c to home with spouse, no concerns voiced.
== END 2021-02-18 12:50 | disposition home or self-care (01) | DRG 483 ==
PROVIDERS: Admitting Provider Orthopaedic Surgery; PCP Internal Medicine; Referring Provider Orthopaedic Surgery; Visit Provider Orthopaedic Surgery
PROC: 0RRK0JZ Replacement of Left Shoulder Joint with Synthetic Substitute, Open Approach (ICD-10-PCS; CPT 23472; principal; 2021-02-17 12:45)
DX: M19.012 Primary osteoarthritis, left shoulder (principal); I10 Essential (primary) hypertension; E78.5 Hyperlipidemia, unspecified; R74.01 Elevation of levels of liver transaminase levels; Z20.822 Contact with and (suspected) exposure to COVID-19
CPT/HCPCS: 36415; 64415; 73020; 85014; 85018; 87635; 97161; 97530; C1776; J0690; J1100; J2250; J2405; J2704; J3010

== ENCOUNTER → 2021-03-27 15:22 | Outpatient (CLI) | payer OTHER, SELFPAY ==
[2021-02-17 16:47] VITALS: BMI 27.2
[2021-03-27 16:48] LABS: Alanine Aminotransferase 29 IU/L (<50); Albumin 3.6 g/dL (3.5-5.0); Albumin Globulin Ratio 1.4 (1.0-2.8); Alkaline Phosphatase 83 U/L (38-126); Aspartate Aminotransferase 31 IU/L (17-59); Bilirubin Total 0.5 mg/dL (0.2-1.3); Bilirubin Unconjugated 0.3 mg/dL (0.0-1.1); Globulin 2.6 g/dL (1.7-4.1); HEMOLYSIS < 15 (0-50); Total Protein 6.2 g/dL (6.3-8.2)
== END ==
PROVIDERS: PCP Internal Medicine; Referring Provider Internal Medicine Gastroenterology; Visit Provider Internal Medicine Gastroenterology
DX: R94.5 Abnormal results of liver function studies (principal)
CPT/HCPCS: 36415; 80076

== ENCOUNTER 2021-05-31 04:18 | Emergency (ER) | payer OTHER, SELFPAY ==
[2021-02-17 16:47] VITALS: BMI 27.2
--- NOTE | 2021-05-31 04:21 | ED_ITS ---
HPI - General Adult General Chief complaint: Shortness of Breath/Dyspnea Stated complaint: COVID+/oxigen levels down Time Seen by Provider: 05/31/21 04:21 History of Present Illness HPI narrative: 76-year-old gentleman with a history of hypertension hyperlipidemia who is currently on day 8 of his COVID infection comes in because he has questions about how to actually use the oxygen tanks that he has available to him at home. He is followed by Dr. Davis. Was diagnosed with COVID after a developed a slight cough through the testing center in [place]. Dr. Davis provided an outpatient oxygen referral. He has had a minimal fever 1st 1-2 days minimal cough and generally does not feel particularly ill. He did have the [employer] vaccine. He is not complaining of chest pain, nausea, vomiting, diarrhea. He has had no orthopnea no lower extremity edema. He has a home oximetry monitor and typically runs in the 92-98% range. With activity last night his was noting that he would dip down to the 88% range. She was concerned that he was getting worse and he did not know how to use his oxygen. They do have somebody from the [employer] coming out at 8:00 a.m. this morning to help them that she wanted him to be seen sooner. He is in no distress whatsoever. Related Data Home Medications Medication Instructions Recorded Confirmed multivitamin 1 tab PO DAILY #0 03/11/07 02/17/21 Collagen 2,000 mg PO BID 11/04/18 02/17/21 cholecalciferol (vitamin D3) 25 1,000 unit PO DAILY 11/04/18 02/17/21 mcg (1,000 unit) capsule (Vitamin D3) coenzyme Q10 100 mg capsule 300 mg PO DAILY #0 11/04/18 02/17/21 (CoQ-10) hydrochlorothiazide 12.5 mg tablet 12.5 mg PO Q OTHER DAY 11/04/18 02/17/21 lisinopril 40 mg tablet 40 mg PO QPM 11/04/18 02/17/21 omega 4-rpu-brb-fish oil 900 1 cap PO DAILY #0 11/04/18 02/17/21 mg-1,400 mg capsule,delayed release (Fish Oil) omeprazole 20 mg capsule,delayed 20 mg PO Q OTHER DAY 11/04/18 02/17/21 release glucosamine [id number]-ywb-piadhrhyty 1 tab PO DAILY 07/12/19 02/17/21 amlodipine 5 mg tablet 5 mg PO QPM 08/30/20 02/17/21 ascorbic acid (vitamin C) 1,000 mg 1 g PO DAILY tab 08/30/20 02/17/21 tablet rosuvastatin 10 mg tablet 10 mg PO QPM tab 08/30/20 02/17/21 turmeric 450 mg-turmeric root 1 cap PO BID 02/06/21 02/17/21 extract 50 mg capsule Previous Rx's Medication Instructions Recorded oxycodone 5 mg tablet 5 mg PO Q4H PRN #40 tab 02/18/21 Allergies Allergy/AdvReac Type Severity Reaction Status Date / Time No Known Drug Allergies Allergy Verified 02/17/21 11:08 Review of Systems Review of Systems Narrative: Remainder of complete review of systems is otherwise unremarkable except for that included in the HPI. Patient History Medical History Elevated liver enzymes Elevated PSA (~2012) Essential hypertension (~2000) Finger amputation, no complication History of adenomatous polyp of colon History of kidney stones HTN (hypertension) Mixed hyperlipidemia Schatzki's ring (~01/2021) Shoulder pain (~2017) Vision disorder Surgical History Anesthesia History of cholecystectomy (~2003) History of hand surgery (~1958) History of surgery (~03/1995) S/P inguinal hernia repair Family History Father Congestive heart failure Mother Congestive heart failure Social History household members: spouse Smoking Status: Never smoker alcohol intake: never substance use type: does not use Smoking Status: Never smoker alcohol intake frequency: 0-2 drinks per day Substance Use Type: does not use Exam Narrative Exam Narrative: General: Healthy appearing, in no acute distress. Able to give a complete and coherent history. Well-nourished well-developed HEENT: normal sclera with reactive pupils, Neck: No JVD, supple Respiratory: Lungs with bibasilar crackles but no wheezing or rhonchi. Rhonchi. Full and symmetrical air movement, no tachypnea and no accessory musc le use Cardiac: Regular rate and rhythm no murmurs no bruits Abdomen: Soft, nontender, good bowel tones, no flank pain Skin: Warm and dry, no rashes Neurologic: Grossly neurologically intact with no obvious asymmetries or abnormalities Extremities: No trauma, well perfused, no lower extremity edema Psych: Cooperative, appropriate insight and affect Initial Vital Signs Initial Vital Signs: Vital Signs Pulse Rate 96 H 05/31/21 04:38 Respiratory Rate 24 05/31/21 04:38 Blood Pressure 162/77 H 05/31/21 04:38 Pulse Oximetry 86 L 05/31/21 04:38 Course Vital Signs Vital signs: Vital Signs - 8 hr 05/31/21 04:38 05/31/21 05:01 Pulse Rate 96 H 84 Respiratory Rate 24 24 Blood Pressure 162/77 H 126/69 Pulse Oximetry 86 L 91 Medical Decision Making MDM Narrative Medical decision making narrative: 76-year-old vaccinated gentleman on day 8 of COVID with slight decrease in oxygen levels with exertion and questions about how to use home oxygen he has available to him at home. Are excellent respiratory therapist, Josh, has provided O2 tanks along with approximately 30 minutes of Education regarding oxygen tank use. Questions are answered. There is no evidence of impending respiratory failure or reason for hospitalization at this time. He is discharged home with instructions to return if he is having increasing dyspnea or sats are consistently below 92% with oxygen up to 6 L. Discharge Plan Departure Patient Disposition: Home Clinical Impression: Pneumonia due to 2019 novel coronavirus Activity Restrictions/Additional Instructions: Thank you for coming in today Thank you for getting your [employer] Rays[employer] vaccine. That is the reason you are being discharged home rather than being admitted to the hospital today. You seem to be having a mild course of COVID pneumonia. At rest her oxygen levels are doing well and with some exertion they seem to be decreasing over the last 24 hours. Josh, our respiratory therapist, has given you of brief to tutorial on how to use your oxygen tanks and you have said that staff from the company providing the a home oxygen is also planning on coming out later this morning to make sure you know how to use it appropriately. If you find that you are feeling worse, your having more difficulty with breathing or your oxygen levels are consistently below 92% even with up to 6 L of oxygen on, you need to return to the emergency room for additional evaluation. Prescriptions: No Action multivitamin Tablet 1 tab PO DAILY Qty: 0 RF: 0 ascorbic acid (vitamin C) 1,000 mg tablet 1 g PO DAILY RF: 0 rosuvastatin 10 mg tablet 10 mg PO QPM RF: 0 amlodipine 5 mg tablet 5 mg PO QPM RF: 0 glucosamine HBn-wls-exvnzzttmw 1 tab PO DAILY RF: 0 turmeric-turmeric root extract 450-50 mg Capsule 1 cap PO BID RF: 0 oxycodone 5 mg Tablet 5 mg PO Q4H PRN (Reason: Pain, Moderate (4-6)) Qty: 40 RF: 0 lisinopril 40 mg tablet 40 mg PO QPM RF: 0 hydrochlorothiazide 12.5 mg tablet 12.5 mg PO Q OTHER DAY RF: 0 omeprazole 20 mg capsule,delayed release(DR/EC) 20 mg PO Q OTHER DAY RF: 0 Fish Oil 900-1,400 mg Capsule,Delayed Release(Dr/Ec) 1 cap PO DAILY Qty: 0 RF: 0 Collagen capsule 2,000 mg PO BID RF: 0 cholecalciferol (vitamin D3) [Vitamin D3] 1,000 unit Capsule 1,000 unit PO DAILY RF: 0 coenzyme Q10 [CoQ-10] 100 mg Capsule 300 mg PO DAILY Qty: 0 RF: 0 Referrals: Meet Davis MD [Primary Care Provider] -
[2021-05-31 04:38] VITALS: BP 162/77; PULSE 96; RESP 24; O2SAT 86; BMI 59.9
[2021-05-31 05:01] VITALS: BP 126/69; PULSE 84; RESP 24; O2SAT 91
== END 2021-05-31 05:23 | disposition home or self-care (01) ==
PROVIDERS: Emergency Provider Emergency Medicine; PCP Internal Medicine
DX: U07.1 COVID-19 (principal); J12.82 Pneumonia due to coronavirus disease 2019
CPT/HCPCS: 99281

== ENCOUNTER → 2021-08-28 09:52 | Outpatient (CLI) | payer OTHER, SELFPAY ==
[2021-02-17 16:47] VITALS: BMI 27.2
[2021-08-28 11:33] LABS: BUN Creatinine Ratio 18.3 (6-22); Blood Urea Nitrogen 15 mg/dL (9-20); Calcium 9.3 mg/dL (8.4-10.2); Carbon Dioxide 31 mmol/L (22-32); Chloride 106 mmol/L (98-107); Estimated Glomerular Filt Rate > 60.0 mL/min (>60); Glucose 111 mg/dL (80-110); HEMOLYSIS < 15 (0-50); Potassium 3.8 mmol/L (3.4-5.1); Sodium 141 mmol/L (137-145)
== END ==
PROVIDERS: PCP Internal Medicine; Referring Provider Podiatrist; Visit Provider Podiatrist
DX: Z01.812 Encounter for preprocedural laboratory examination (principal)
CPT/HCPCS: 36415; 80048

== ENCOUNTER → 2022-02-10 07:06 | Outpatient (CLI) | payer OTHER, SELFPAY ==
[2021-02-17 16:47] VITALS: BMI 27.2
[2022-02-10 09:15] LABS: Alanine Aminotransferase 18 IU/L (<50); Albumin 3.9 g/dL (3.5-5.0); Albumin Globulin Ratio 1.7 (1.0-2.8); Alkaline Phosphatase 60 U/L (38-126); Aspartate Aminotransferase 28 IU/L (17-59); Bilirubin Total 0.6 mg/dL (0.2-1.3); Blood Urea Nitrogen 17 mg/dL (9-20); Calcium 8.8 mg/dL (8.4-10.2); Carbon Dioxide 29 mmol/L (22-32); Chloride 104 mmol/L (98-107); Cholesterol 138 mg/dL (140-199); Estimated Glomerular Filt Rate > 60 mL/min (>60); Globulin 2.3 g/dL (1.7-4.1); Glucose 90 mg/dL (80-110); HDL Cholesterol 50 mg/dL (40-60); HEMOLYSIS < 15 (0-50); LDL Cholesterol Calculated 72 mg/dL (<100); Potassium 4.2 mmol/L (3.4-5.1); Sodium 141 mmol/L (137-145); Total Protein 6.2 g/dL (6.3-8.2); Triglycerides 78 mg/dL (35-150)
== END ==
PROVIDERS: PCP Internal Medicine; Referring Provider Internal Medicine; Visit Provider Internal Medicine
DX: E78.2 Mixed hyperlipidemia (principal); I10 Essential (primary) hypertension
CPT/HCPCS: 36415; 80053; 80061

== ENCOUNTER → 2023-01-27 07:00 | Outpatient (CLI) | payer MEDICARE, SELFPAY ==
[2021-02-17 16:47] VITALS: BMI 27.2
[2023-01-27 09:53] LABS: Alanine Aminotransferase 26 IU/L (<50); Albumin 3.6 g/dL (3.5-5.0); Albumin Globulin Ratio 1.4 (1.0-2.8); Alkaline Phosphatase 73 U/L (38-126); Aspartate Aminotransferase 28 IU/L (17-59); BUN Creatinine Ratio 21.1 (6-22); Bilirubin Total 0.8 mg/dL (0.2-1.3); Blood Urea Nitrogen 16 mg/dL (9-20); Calcium 8.5 mg/dL (8.4-10.2); Carbon Dioxide 28 mmol/L (22-32); Chloride 105 mmol/L (98-107); Cholesterol 131 mg/dL (140-199); Estimated Glomerular Filt Rate > 60 mL/min (>60); Globulin 2.6 g/dL (1.7-4.1); Glucose 90 mg/dL (80-110); HDL Cholesterol 51 mg/dL (40-60); HEMOLYSIS < 15 (0-50); LDL Cholesterol Calculated 64 mg/dL (<100); Potassium 4.2 mmol/L (3.4-5.1); Sodium 138 mmol/L (137-145); Total Protein 6.2 g/dL (6.3-8.2); Triglycerides 81 mg/dL (35-150)
== END ==
PROVIDERS: PCP Internal Medicine; Referring Provider Internal Medicine; Visit Provider Internal Medicine
DX: E78.2 Mixed hyperlipidemia (principal); I10 Essential (primary) hypertension
CPT/HCPCS: 36415; 80053; 80061

== ENCOUNTER → 2023-01-28 15:54 | Outpatient (CLI) | payer MEDICARE, SELFPAY ==
[2021-02-17 16:47] VITALS: BMI 27.2
--- NOTE | 2023-01-28 15:55 | DI.RAD.S_ITS ---
PROCEDURE: XR CHEST 2V INDICATIONS: chest pain TECHNIQUE: 2 views of the chest were acquired. COMPARISON: , , CHEST 2 VIEW, 08/04/2013, 12:30. , , XR CHEST 1V, 11/04/2018, 10:52. FINDINGS: Surgical changes and devices: Left shoulder arthroplasty incompletely evaluated. Lungs and pleura: Lungs are clear. No pleural effusions or pneumothorax. Mediastinum: Mediastinal contours are normal. Heart size is normal. Bones and chest wall: No suspicious bony abnormalities. Soft tissues appear unremarkable. IMPRESSION: No source for chest pain identified radiographically. Dictated by: Fadi Cobb RRA Interpreted: Piotr Blancas MD on 01/28/2023 at 16:08 Transcribed by: TRAVON on 01/28/2023 at 16:08 Approved by: Piotr Blancas M.D. on 01/28/2023 at 17:39
== END ==
PROVIDERS: PCP Internal Medicine; Referring Provider Internal Medicine; Visit Provider Internal Medicine
DX: R07.9 Chest pain, unspecified (principal)
CPT/HCPCS: 71046

== ENCOUNTER → 2024-06-09 07:58 | Outpatient (CLI) | payer MEDICARE, SELFPAY ==
[2021-02-17 16:47] VITALS: BMI 27.2
[2024-06-09 09:13] LABS: Add Manual Diff / Slide Review NO; Basophils Absolute Auto 0 /uL (0-100); Basophils Percent Auto 0.5 % (0-2); Eosinophils Absolute Auto 200 /uL (0-450); Eosinophils Percent Auto 3.3 % (2-4); Hematocrit 42.2 % (41-53); Hemoglobin 14.1 g/dL (13.5-17.5); Lymphocytes Absolute Auto 1400 /uL (1100-4500); Lymphocytes Percent Auto 18.6 % (25-40); Mean Corpuscular HGB Conc 33.4 % (30-36); Mean Corpuscular Hemoglobin 32.2 PG (26-34); Mean Corpuscular Volume 96.4 fL (80-100); Monocytes Absolute Auto 900 /uL (0-900); Monocytes Percent Auto 11.8 % (3-14); Neutrophils Absolute Auto 4800 /uL (1500-7000); Neutrophils Percent Auto 65.8 % (50-75); Platelet Count 213 X10^3/uL (150-400); Red Blood Cell Count 4.38 X10^6/uL (4.5-5.9); Red Cell Distribution Width 13.5 % (11.6-14.8); White Blood Cell Count 7.3 X10^3/uL (4.5-11.0)
[2024-06-09 09:40] LABS: Alanine Aminotransferase 77 IU/L (<50); Albumin 3.7 g/dL (3.5-5.0); Albumin Globulin Ratio 1.5 (1.0-2.8); Alkaline Phosphatase 183 U/L (38-126); Aspartate Aminotransferase 35 IU/L (17-59); BUN Creatinine Ratio 22.4 (6-22); Bilirubin Total 0.9 mg/dL (0.2-1.3); Blood Urea Nitrogen 17 mg/dL (9-20); Calcium 8.9 mg/dL (8.4-10.2); Carbon Dioxide 27 mmol/L (22-32); Chloride 105 mmol/L (98-107); Cholesterol 134 mg/dL (140-199); Estimated Glomerular Filt Rate > 60 mL/min (>60); Globulin 2.4 g/dL (1.7-4.1); Glucose 98 mg/dL (80-110); HDL Cholesterol 45 mg/dL (40-60); HEMOLYSIS < 15 (0-50); LDL Cholesterol Calculated 66 mg/dL (<100); Potassium 4.3 mmol/L (3.4-5.1); Sodium 138 mmol/L (137-145); Total Protein 6.1 g/dL (6.3-8.2); Triglycerides 113 mg/dL (35-150)
== END ==
PROVIDERS: PCP Internal Medicine; Referring Provider Internal Medicine; Visit Provider Internal Medicine
DX: E78.2 Mixed hyperlipidemia (principal); I10 Essential (primary) hypertension; R07.9 Chest pain, unspecified; I49.9 Cardiac arrhythmia, unspecified
CPT/HCPCS: 36415; 80053; 80061; 85025

== ENCOUNTER → 2024-06-28 09:21 | Outpatient (CLI) | payer MEDICARE, SELFPAY ==
[2021-02-17 16:47] VITALS: BMI 27.2
== END ==
LOC: CAR 09:21
PROVIDERS: PCP Internal Medicine; Referring Provider Internal Medicine; Visit Provider Internal Medicine
DX: I49.9 Cardiac arrhythmia, unspecified (principal)
CPT/HCPCS: 93242

== ENCOUNTER → 2024-07-16 06:49 | Outpatient (CLI) | payer MEDICARE, SELFPAY ==
[2021-02-17 16:47] VITALS: BMI 27.2
--- NOTE | 2024-07-16 06:50 | DI.ECHO.S_ITS ---
[place] [facility]+ [facility] : : [address] : : [place] : : [id number] : : Phone: [phone] Echocardiogram Report + + :Name: JOE MARKHAM Study Date: 07/16/2024 Height: 71 in : :[facility] ReadingLocation: Weight: 198 lb : : Gender: Male BSA: 2.1 m2 : :: 1945 Age: 79 yrs BP: 146/83 mmHg: :Reason For Study: CHEST PAIN : :Ordering Physician: RAZ, : :ANA Simon Performed By: Joslyn Coleman : :Referring: ANA CRANDALL : + + Interpretation Summary The left ventricle is normal in size. Left ventricular wall thickness is mild-moderately increased. The left ventricular ejection fraction is normal. LVEF 60 to 65% without any significant change from the previous study. No significant diastolic dysfunction. The right ventricle is normal size. Visually RV systolic function appears to be preserved. Suspect bicuspid aortic valve with raphae between right and left coronary cusp. The aortic valve is moderately calcified. There is mild to moderately reduced leaflet mobility. The peak aortic velocity is 3.3 m/sec. The peak aortic velocity on the previous exam was 1.47 m/sec. Overall mild to moderate aortic stenosis. There is mild aortic regurgitation. The aortic root is mildly dilated. 4.2 cm diameter. Previously 4.0 cm. Procedure: A two-dimensional transthoracic echocardiogram with color flow and Doppler was performed. The study quality was technically adequate. Comparison is made with the echocardiogram of 11/05/2018. The patient was in normal sinus rhythm during the exam. The patient had occasional PVCs during the exam. Left Ventricle: The left ventricle is normal in size. Left ventricular wall thickness is mild-moderately increased. There is no thrombus. The ejection fraction is estimated to be 60-65%. The left ventricular ejection fraction is normal. There has been no significant change since the previous exam. There are no focal wall motion abnormalities. No significant diastolic dysfunction. Right Ventricle: The right ventricle is normal size. Visually RV systolic function appears to be preserved. Atria: The left atrium is mildly dilated. There has been no significant change since the previous study. Right atrial size is normal. There is no Doppler evidence for an interatrial shunt. Mitral Valve: There is mild mitral annular calcification. The mitral valve leaflets are mildly calcified. The mitral valve chordae are thickened and/or calcified. There is systolic anterior motion of the chordal apparatus. The mitral valve leaflets appear mildly thickened, but open well. Redundant elongated chordae are noted. There is mild mitral regurgitation. There has been no significant change since the previous study. Aortic Valve: The aortic valve is moderately calcified. There is mild to moderately reduced leaflet mobility. The peak aortic velocity is 3.3 m/sec. The aortic valve mean gradient is 23.6 mmHg. The peak aortic velocity on the previous exam was 1.47 m/sec. There is mild aortic regurgitation. Tricuspid Valve: The tricuspid valve leaflets are thin and pliable. There is trace tricuspid regurgitation. The right ventricular systolic pressure is estimated to be at least 25 mmHg based on an estimated right atrial pressure of 3 mm Hg. Pulmonic Valve: The pulmonic valve leaflets are thin and pliable; valve motion is normal. There is no pulmonic valvular regurgitation. Great Vessels: The aortic root is mildly dilated. The dimensions of the ascending aorta are normal. The IVC is of normal diameter and collapses greater than 50% with a sniff. This suggests a low right atrial pressure of 3 mm Hg. Pericardium/ Pleura There is no pericardial effusion. There is no pleural effusion. MMode/2D Measurements & Calculations LVIDd: 4.6 cm LVOT diam: 2.7 cm LVIDs: 3.3 cm Ao root diam: 4.2 cm FS: 28.7 % asc Aorta Diam: 3.7 cm IVSd: 1.4 cm Ao Arch Diam (Prox Trans): 3.7 cm LVPWd: 1.1 cm LV tanner. diameter/BSA (cm/m^2): 2.2 LV sys. diameter/BSA (cm/m^2): 1.6 LA A2 area: 25.2 cm2 RA long axis: 6.3 cm LA A4 area: 26.2 cm2 RA area: 19.8 cm2 LA length (vol): 6.8 cm RA vol: 53.4 ml LA vol: 81.8 ml RA : 25.4 ml/m2 LA vol index: 38.9 ml/m2 IVC diam: 1.0 cm RVD1 (basal): 3.5 cm RVD2 (mid): 3.4 cm TAPSE: 1.3 cm Doppler Measurements & Calculations Ao V2 max: 330.7 cm/sec LVOT Max Reid: 128.2 cm/sec Ao V2 mean: 212.1 cm/sec LV V1 max P.6 mmHg Ao max P.3 mmHg LV V1 VTI: 27.6 cm Ao mean P.6 mmHg ANIBAL(I,D): 2.3 cm2 Ao V2 VTI: 68.5 cm ANIBAL(V,D): 2.2 cm2 sev ratio: 0.40 ANIBAL indexed to BSA (cm^2/m^2): 1.1 AI P1/2t: 713.3 msec AI dec slope: 148.0 cm/sec2 MV E max reid: 72.4 cm/sec TR max reid: 233.2 cm/sec MV A max reid: 67.7 cm/sec TR max P.8 mmHg MV E/A: 1.1 PA V2 max: 129.4 cm/sec Med Peak E' Reid: 6.5 cm/sec PA V2 mean: 99.7 cm/sec E/E' med: 11.2 PA mean P.3 mmHg Lat Peak E' Reid: 9.8 cm/sec PA pr(Accel): 36.2 mmHg E/E' lat: 7.4 E/e' average: 9.3 MV dec time: 0.21 sec SV(LVOT): 158.4 ml Reading Physician:01:29 PM
== END ==
PROVIDERS: PCP Internal Medicine; Referring Provider Internal Medicine; Visit Provider Internal Medicine
DX: E78.2 Mixed hyperlipidemia (principal); I10 Essential (primary) hypertension; I08.0 Rheumatic disorders of both mitral and aortic valves; I77.810 Thoracic aortic ectasia
CPT/HCPCS: 93306

== ENCOUNTER → 2025-05-18 09:10 | Outpatient (CLI) | payer MEDICARE, SELFPAY ==
[2021-02-17 16:47] VITALS: BMI 27.2
--- NOTE | 2025-05-18 09:11 | DI.ECHO.S_ITS ---
[facility]+ [facility] : : [address] : : [place] : : [id number] : : Phone: [phone] Echocardiogram Report + + :Name: JOE MARKHAM Study Date: 05/18/2025 Height: 71 in : :[facility] ReadingLocation: Weight: 195 lb : : Gender: Male BSA: 2.1 m2 : :: 1945 Age: 80 yrs BP: 164/90 mmHg: :Reason For Study: Aortic valve : :Ordering Physician: ANA CRANDALL : :R Performed By: James Hart : :Referring: ANA CRANDALL R : + + Interpretation Summary Left ventricular wall thickness is moderately increased. The ejection fraction is estimated to be 55-60%. Diastolic function is indeterminate. The left atrium is mildly dilated. The right ventricle is normal in size and function. There is moderate aortic stenosis. The right ventricular systolic pressure is estimated to be at least 26 mmHg based on an estimated right atrial pressure of 3 mm Hg. The ascending aorta is mildly dilated. Compared to the prior study 07/16/2024, the aortic valve gradient has increased. Procedure: A two-dimensional transthoracic echocardiogram with color flow and Doppler was performed. Left Ventricle: The left ventricle is normal in size. Left ventricular wall thickness is moderately increased. Left ventricular systolic function is normal. The ejection fraction is estimated to be 55-60%. There are no focal wall motion abnormalities. Diastolic function is indeterminate. Right Ventricle: The right ventricle is normal in size and function. Atria: The left atrium is mildly dilated. Right atrial size is normal. There is no Doppler evidence for an interatrial shunt. Mitral Valve: The mitral valve leaflets appear to open well. There is no mitral valve stenosis. There is trace mitral regurgitation. Aortic Valve: Aortic valve is tricuspid and the non-coronary cusp is fixed. The aortic valve is moderately calcified. The calculated aortic valve area is 1.6 cm2. The peak aortic velocity is 3.6 m/sec. The peak aortic velocity on the previous exam was 3.3 m/sec. The aortic valve mean gradient is 31 mmHg. The dimensionless index is 0.32. There is moderate aortic stenosis. There is trace aortic regurgitation. Tricuspid Valve: The tricuspid valve is not well visualized, but is grossly normal. There is trace tricuspid regurgitation. The right ventricular systolic pressure is estimated to be at least 26 mmHg based on an estimated right atrial pressure of 3 mm Hg. Pulmonic Valve: The pulmonic valve is not well seen, but is grossly normal. There is trace pulmonic regurgitation. Great Vessels: There is aortic root sclerosis/calcification. Aortic root at the area of the Sinuses of Valsalva has a max diameter of 3.9 cm, with a max diameter recording of 4.2 cm on previous echo in 2023. Proximal ascending aorta measures with a max diameter of 4.0 cm, with a previous diameter of 3.8 cm on previous echo in 2023. Based on patients BSA proximal ascending aorta is within normal limits. The aortic arch could not be visualized. The pulmonary artery is normal size. The IVC is of normal diameter and collapses greater than 50% with a sniff. This suggests a low right atrial pressure of 3 mm Hg. Pericardium/ Pleura There is no pericardial effusion. MMode/2D Measurements & Calculations LVIDd: 4.2 cm LVOT diam: 2.6 cm LVIDs: 3.0 cm Ao root diam: 4.1 cm FS: 29.8 % asc Aorta Diam: 4.0 cm EPSS: 0.99 cm IVSd: 1.7 cm LVPWd: 1.5 cm LV tanner. diameter/BSA (cm/m^2): 2.0 LV sys. diameter/BSA (cm/m^2): 1.4 LA A2 area: 23.9 cm2 RA long axis: 6.4 cm LA A4 area: 23.4 cm2 RA area: 21.7 cm2 LA length (vol): 6.3 cm RA vol: 62.2 ml LA vol: 74.8 ml RA : 29.8 ml/m2 LA vol index: 35.8 ml/m2 RVD1 (basal): 3.5 cm RVD2 (mid): 3.0 cm TAPSE: 2.5 cm Doppler Measurements & Calculations Ao V2 max: 359.6 cm/sec LVOT Max Reid: 112.8 cm/sec Ao V2 mean: 257.2 cm/sec LV V1 max P.1 mmHg Ao max P.7 mmHg LV V1 VTI: 22.3 cm Ao mean P.5 mmHg ANIBAL(I,D): 1.7 cm2 Ao V2 VTI: 67.5 cm ANIBAL(V,D): 1.6 cm2 sev ratio: 0.33 ANIBAL indexed to BSA (cm^2/m^2): 0.83 MV E max reid: 110.0 cm/sec TR max reid: 240.5 cm/sec MV A max reid: 77.1 cm/sec TR max P.2 mmHg MV E/A: 1.4 PA V2 max: 140.9 cm/sec Med Peak E' Reid: 6.4 cm/sec PA V2 mean: 85.1 cm/sec E/E' med: 17.2 PA mean P.6 mmHg Lat Peak E' Reid: 11.2 cm/sec PA pr(Accel): 45.6 mmHg E/E' lat: 9.8 E/e' average: 13.5 MV dec time: 0.19 sec SV(LVOT): 117.3 ml Qp/Qs (V,Ao): 1.0/9.2 Qp/Qs (V,LVOT): 1.0/1.1 Reading Physician:11:26 AM
== END ==
LOC: ECHO 09:10
PROVIDERS: PCP Internal Medicine; Referring Provider Internal Medicine; Visit Provider Internal Medicine
DX: I35.0 Nonrheumatic aortic (valve) stenosis (principal); Q23.81 Bicuspid aortic valve; I77.810 Thoracic aortic ectasia; I70.0 Atherosclerosis of aorta
CPT/HCPCS: 93306

== ENCOUNTER 2025-07-13 13:05 | Inpatient (IN) | payer MEDICARE, SELFPAY ==
[2021-02-17 16:47] VITALS: BMI 27.2
[2025-07-13] VITALS (7 sets, daily range): BP systolic 114–186; BP diastolic 70–89; PULSE 75–82; RESP 16–18; TEMP 36.8–37.1; O2SAT 93–99; BMI 30.9; BMI 28.3
--- NOTE | 2025-07-13 13:10 | ED.TRAUMA ---
HPI - Trauma General Chief Complaint: Trauma Stated Complaint: Fall from ladder Time Seen by Provider: 07/13/25 13:06 History of Present Illness HPI narrative: Mr. Vincent is a very pleasant 80-year-old gentleman with a past medical history of HTN, HLD, aortic stenosis, BPH who presents to the emergency department via EMS from his job at the [employer] as a modified trauma after falling from a ladder. Patient states that he was about 5 ft up on a ladder, inspecting a villavicencio, when he slipped and fell landing on his feet then falling onto his right hip and bracing himself with his left hand. He did not hit his head. He does not take blood thinners. He now has pain of his right hip and proximal femur. He denies any headache, neck pain, back pain, upper extremity pain, abdominal pain, chest pain, left lower extremity pain. He reports pain in the ?ball and socket? of his right hip. His right leg is being held in slight external rotation and does appear slightly shortened. He still has a good pulse on the right foot and has good sensation in the foot. No bleeding, no open wounds. Patient is alert and keenly responsive. He provides a clear history. No nausea or vomiting, no visual disturbance. Related Data Home Medications ?Medication ?Instructions ?Recorded ?Confirmed multivitamin 1 tab PO DAILY ##0 03/11/07 07/13/25 Collagen 2,000 mg PO BID 11/04/18 07/13/25 cholecalciferol (vitamin D3) 25 1,000 unit PO DAILY 11/04/18 07/13/25 mcg (1,000 unit) capsule (Vitamin D3) coenzyme Q10 100 mg capsule 300 mg PO DAILY ##0 11/04/18 07/13/25 (CoQ-10) omega 2-qdx-ocm-fish oil 900 1 cap PO DAILY ##0 11/04/18 07/13/25 mg-1,400 mg capsule,delayed release (Fish Oil) glucosamine [id number]-[id number] 1 tab PO DAILY 07/12/19 07/13/25 ascorbic acid (vitamin C) 1,000 mg 1 g PO DAILY 08/30/20 07/13/25 tablet turmeric 450 mg-turmeric root 1 cap PO BID 02/06/21 07/13/25 extract 50 mg capsule Previous Rx's ?Medication ?Instructions ?Recorded amlodipine 5 mg tablet 5 mg PO QPM #90 tabs 01/02/25 rosuvastatin 10 mg tablet 10 mg PO QPM #90 tabs 01/02/25 lisinopril 40 mg tablet 40 mg PO QPM #90 tabs 05/07/25 hydrochlorothiazide 12.5 mg tablet 12.5 mg PO DAILY #90 tabs 06/15/25 omeprazole 20 mg capsule,delayed 20 mg PO Q OTHER DAY #45 caps 06/15/25 release Allergies Allergy/AdvReac Type Severity Reaction Status Date / Time No Known Drug Allergies Allergy Verified 07/09/25 14:14 Review of Systems Review of Systems ROS Unobtainable: All systems reviewed & are unremarkable except as noted in HPI and below Patient History Medical History Moderate aortic stenosis Bicuspid aortic valve BPH w urinary obs/LUTS Elevated liver enzymes HTN (hypertension) Schatzki's ring (~01/2021) Vision disorder Shoulder pain (~2017) Elevated PSA (~2012) Mixed hyperlipidemia History of adenomatous polyp of colon Essential hypertension (~2000) History of kidney stones Finger amputation, no complication Surgical History S/P cataract extraction [place] teeth removed 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) Anesthesia History of hand surgery (~1958) History of surgery (~03/1995) S/P inguinal hernia repair History of cholecystectomy (~2003) Family History Father Congestive heart failure Mother Congestive heart failure Social History marital status: household members: spouse pets and animals: No current occupational exposures/hazards: No special maru needs: No travel history: over 6 months ago leisure activities: exercise, music and other seatbelt use: always water heater temp set < 120 deg: Yes working smoke detector in home: Yes fire extinguisher in home: Yes carbon monox detector in home: Yes firearms in home: Yes firearms unloaded and locked: Yes do you feel safe at home: Yes Smoking Status: Never smoker second hand exposure: No alcohol intake: never substance use type: does not use during the past year weight has: remained stable well-balanced diet: daily or most days daily servings fruits/ve-4 caffeine: No eating out: 1-3 times/week Type(s) of exercise: walking and regular exercise alcohol intake frequency: 0-2 drinks per day Exam Narrative Exam Narrative: GENERAL: 80 year old patient appears stated age. Well-developed patient, in no acute distress. HEAD: Atraumatic. Normocephalic. EYES: PERRL. Extraocular motions intact. No scleral icterus. No injection or drainage. ENT: Nose without bleeding, purulent drainage. Airway patent. NECK: Trachea midline. Cervical ROM intact. No midline cervical tenderness. No paraspinal tenderness. No pain with range of motion. CARDIOVASCULAR: Regular rate and rhythm. Systolic murmur auscultated. RESPIRATORY: ?Nonlabored respirations. ?Speaking in clear, full sentences. ?Clear to auscultation. Breath sounds equal bilaterally. No wheezes, rales, or rhonchi. ? GASTROINTESTINAL: Abdomen soft, non-tender, nondistended. EXTREMITIES: Right leg slightly shortened and externally rotated. Patient has tenderness to palpation of the proximal femur/anterior right hip. No open wounds. Tenderness does extend to about the mid femur region. No tenderness to palpation of the right knee, conroy, ankle or foot. Strong DP pulse sensation intact to light touch on the right foot and brisk cap refill. No tenderness to palpation of bilateral upper extremities or left lower extremity. No heel tenderness bilaterally. BACK: Nontender. NEURO: AOx3. ?Clear speech. ?No facial asymmetry. Sensation intact to light touch on bilateral upper and lower extremities. SKIN: No rash or erythema of visible areas. Initial Vital Signs Initial Vital Signs: Vital Signs Temperature 98.7 F 07/13/25 13:19 Pulse Rate 75 07/13/25 13:19 Respiratory Rate 16 07/13/25 13:19 Blood Pressure 186/89 H 07/13/25 13:19 Pulse Oximetry 97 07/13/25 13:19 Oxygen Delivery Method Room Air 07/13/25 13:19 Course Orders Ordered: ED Orders 07/13/25 13:16 XR chest 1V Stat XR femur RT min 2V Stat XR pelvis 1-2V Stat CBC Auto Diff [Complete Blood Count AUTO DIFF] Stat 07/13/25 13:17 EKG-12 Lead Stat 07/13/25 13:45 CMP [Comprehensive Metabolic Panel] Stat PT [Prothrombin Time INR] Stat PTT [PTT Partial Thromboplastin Олег] Stat 07/13/25 14:58 Urine Culture Stat Urine Microscopic Stat Acetaminophen (Acetaminophen 325 Mg Tablet) 650 mg PO Q6H PRN PRN Reason: Fever/Mild Pain (1-3) Hydrocodone Bitart/Acetaminophen (Hydrocodone/Acet 5/325 Tablet) 1 tab PO Q4H PRN PRN Reason: Pain, Moderate (4-6) Hydrocodone Bitart/Acetaminophen (Hydrocodone/Acet 5/325 Tablet) 2 tab PO Q4H PRN PRN Reason: Pain, Severe (7-10) Last Admin: 07/13/25 18:21 Dose: 2 tab Documented By: BENNIE Amlodipine Besylate (Amlodipine 5 Mg Tablet) 5 mg PO QPM [facility] Atorvastatin Calcium (Atorvastatin 20 Mg Tablet) 20 mg PO BEDTIME [facility] Docusate Sodium (Docusate 100 Mg Capsule) 100 mg PO BID [facility] Hydrochlorothiazide (Hydrochlorothiazide 25 Mg Tablet) 12.5 mg PO DAILY [facility] Hydromorphone HCl (Hydromorphone Hcl 0.5 Mg/0.5 Ml Syringe) 0.5 mg IV Q2H PRN PRN Reason: Pain, Severe (7-10) Sodium Chloride (Normal Saline 0.45%) 1,000 mls @ 100 mls/hr IV CONT VIOLA Last Admin: 07/13/25 18:21 Dose: 100 mls/hr Documented By: BENNIE Lisinopril (Lisinopril 20 Mg Tablet) 40 mg PO QPM [facility] Naloxone HCl (Naloxone 0.4 Mg/Ml Vial) 0.2 mg IV Q2MIN PRN PRN Reason: Opiate Reversal Ondansetron HCl (Ondansetron 4 Mg/2 Ml Inj) 4 mg IV Q8HR PRN PRN Reason: Nausea And Vomiting Pantoprazole Sodium (Pantoprazole Dr 20 Mg Tablet) 20 mg PO 0600 [facility] Discontinued Medications Morphine Sulfate (Morphine 4 Mg/Ml Inj) 4 mg IV NOW ONE Stop: 07/13/25 13:17 Last Admin: 07/13/25 14:13 Dose: 4 mg Documented By: JAEL Ondansetron HCl (Ondansetron 4 Mg/2 Ml Inj) 4 mg IV NOW ONE Stop: 07/13/25 13:17 Last Admin: 07/13/25 18:21 Dose: Not Given Documented By: BENNIE Vital Signs Vital signs: Vital Signs - 8 hr 07/13/25 13:19 07/13/25 13:40 07/13/25 13:41 Temperature 98.7 F Pulse Rate 75 75 Respiratory Rate 16 Blood Pressure 186/89 H Pulse Oximetry 97 99 97 Oxygen Delivery Method Room Air 07/13/25 13:41 07/13/25 14:00 07/13/25 14:30 Temperature Pulse Rate 75 81 Respiratory Rate Blood Pressure 166/86 H Pulse Oximetry 98 96 Oxygen Delivery Method MDM - Trauma Medical Records Attestation: I reviewed the patient's medical records. Lab Data 07/13/25 13:16 07/13/25 13:45 Labs: Lab Results 07/13/25 07/13/25 07/13/25 Range/Units 13:16 13:45 14:58 WBC 6.1 (4.5-11.0) X10^3/uL RBC 4.16 L (4.5-5.9) X10^6/uL Hgb 13.3 L (13.5-17.5) g/dL Hct 39.1 L (41-53) % MCV 94.1 (80-100) fL MCH 32.1 (26-34) PG MCHC 34.1 (30-36) % RDW 13.2 (11.6-14.8) % Plt Count 213 (150-400) X10^3/uL Neut % (Auto) 67.8 (50-75) % Lymph % (Auto) 19.0 L (25-40) % [place] % (Auto) 10.3 (3-14) % Eos % (Auto) 2.0 (2-4) % Baso % (Auto) 0.9 (0-2) % Neut # (Auto) 4200 (7047-2869) /uL Lymph # (Auto) 1200 (7805-4791) /uL [place] # (Auto) 600 (0-900) /uL Eos # (Auto) 100 (0-450) /uL Baso # (Auto) 100 (0-100) /uL PT 11.8 (9.4-12.5) SECONDS INR 1.0 (0.9-1.3) APTT 24 L (25.1-36.5) SECONDS Sodium 139 (137-145) mmol/L Potassium 4.1 (3.4-5.1) mmol/L Chloride 105 (98-107) mmol/L Carbon Dioxide 27 (22-32) mmol/L BUN 16 (9-20) mg/dL Creatinine 0.74 (0.66-1.25) mg/dL Estimated GFR > 60 (>60) mL/min BUN/Creatinine Ratio 21.6 (6-22) Glucose 176 H (70-99) mg/dL Calcium 8.9 (8.4-10.2) mg/dL Total Bilirubin 0.6 (0.2-1.3) mg/dL AST 30 (17-59) IU/L ALT 23 (<50) IU/L Alkaline Phosphatase 74 (38-126) U/L Total Protein 6.5 (6.3-8.2) g/dL Albumin 3.8 (3.5-5.0) g/dL Globulin 2.7 (1.7-4.1) g/dL Albumin/Globulin Ratio 1.4 (1.0-2.8) Urine RBC 1-5/hpf (0-5/HPF) Urine WBC 0-1/hpf (0-5/HPF) Ur Squamous Epith Cells 0-1 /hpf (0-5/HPF) Urine Bacteria None seen (None) Ur Culture Indicated? Cult not indicated Vol Urine Centrifuged 10ml (spun) Urine Dip Bedside Urine Glucose Negative Bedside Urine Bilirubin - Negative Bedside Urine Ketone - Negative Urine Specific [place] 1.025 Bedside Urine Occult Blood +/- Bedside Urine pH 6.0 Bedside Urine Protein +/- 15 Bedside Urine Urobilinogen - Negative Bedside Urine Nitrite - Negative Bedside Urine Leukocytes - Negative Esterase Imaging Data XR Pelvis: Radiologist's Impression: PROCEDURE: XR PELVIS 1-2V INDICATIONS: fall off ladder; R hip pain and leg shortening TECHNIQUE: 1 view(s) of the pelvis acquired. COMPARISON: None. FINDINGS: Bones: Displaced right intertrochanteric fracture. Partially visualized left femoral nathan. Soft tissues: Visualized bowel gas pattern is normal. No suspicious soft tissue calcifications. IMPRESSION: Displaced right intertrochanteric fracture. Dictated by: Jakob Anguiano M.D. on 07/13/2025 at 14:14 Approved by: Jakob Anguiano M.D. on 07/13/2025 at 14:14 XR Femur: Radiologist's Impression: PROCEDURE: XR FEMUR RT MIN 2V INDICATIONS: fall off ladder; proximal to mid femur pain TECHNIQUE: 4 views of the femur were acquired. COMPARISON: None. FINDINGS: Bones: Displaced intertrochanteric fracture of the right hip. No suspicious bony lesions. Soft tissues: No suspicious soft tissue calcifications or masses. IMPRESSION: Displaced intertrochanteric fracture of the right hip. Dictated by: Jakob Anguiano M.D. on 07/13/2025 at 14:13 Approved by: Jakob Anguiano M.D. on 07/13/2025 at 14:13 Chest x-ray: Radiologist's Impression: PROCEDURE: XR CHEST 1V INDICATIONS: fall off ladder TECHNIQUE: One view of the chest was acquired. COMPARISON: [facility], , XR CHEST 2V, 01/28/2023, 15:54. [facility], , XR CHEST 1V, 11/04/2018, 10:52. FINDINGS: Surgical changes and devices: Partially visualized left shoulder arthroplasty Lungs and pleura: Lungs are clear. No pleural effusions or pneumothorax. Mediastinum: Mediastinal contours appear normal. Heart size is enlarged. Bones and chest wall: No suspicious bony lesions. Overlying soft tissues appear unremarkable. IMPRESSION: No acute cardiopulmonary abnormality is seen. Dictated by: Jakob Anguiano M.D. on 07/13/2025 at 14:12 Approved by: Jakob Anguiano M.D. on 07/13/2025 at 14:13 [facility] Narrative Medical decision making narrative: 80-year-old gentleman with a past medical history of HTN, HLD, aortic stenosis, BPH who presents to the emergency department via EMS from his job at the [employer] as a modified trauma after falling from a ladder. Patient states that he was about 5 ft up on a ladder, inspecting a villavicencio, when he slipped and fell landing on his feet then falling onto his right hip and bracing himself with his left hand. He did not hit his head. He does not take blood thinners. Differential diagnosis includes but isn't limited to right hip fracture, dislocation, trauma, etc. On exam the patient is in no acute distress, nontoxic appearing, vital signs appropriate with the exception of mild elevated blood pressure. He is alert and keenly responsive, able to provide a clear history in which he fell down off of the ladder landing on both of his feet and then falling onto the right hip. He now has pain only of the right hip. He denies hitting his head, he does not take blood thinners, no neck pain back pain chest pain abdominal pain or pain on the upper extremities or the left lower extremity. No open wounds. Physical exam does reveal a very tender anterior right hip and slightly externally rotated shortened leg. We will obtain chest x-ray, pelvis x-ray, right femur x-ray, obtain baseline lab work and treat with morphine and Zofran. Imaging reveals displaced right intertrochanteric fracture. Chest x-ray reveals no acute cardiopulmonary abnormality. Labs reveal normal WBC count 6.1, slightly low hemoglobin 13.3 hematocrit 39.1. Sodium 139, potassium 4.1, BUN 16 creatinine 0.74. Glucose 176. EKG reveals sinus rhythm with a first-degree AV block, rate of 72 beats per minute, QTC of 427. There is a left axis deviation. 1425: Updated patient on x-ray results revealing right intertrochanteric femur fracture. His right hip pain has improved. 1428: Discussed case with Dr. Palafox, orthopedic surgeon on-call. She recommends admission to hospitalist service and she will come down and see the patient after clinic. She requested EKG, baseline labs, chest x-ray which has been performed. Will consult hospital service. 1508: Spoke with Dr. Leon as patient's PCP is Dr. Davis but he is no longer in clinic, who graciously accepts the patient for admission. At this time awaiting ortho evaluation. Patient is stable for transfer to the floor at this time, plan for surgery tomorrow. Discharge Plan Departure Patient Disposition: Admitted As Inpatient Clinical Impression: Closed intertrochanteric fracture of right femur Qualifiers: Encounter type: initial encounter Fracture alignment: displaced Qualified Code(s): S72.141A - Displaced intertrochanteric fracture of right femur, initial encounter for closed fracture Accidental fall from ladder Qualifiers: Encounter type: initial encounter Qualified Code(s): W11.XXXA - Fall on and from ladder, initial encounter Admit Date/Time: 07/13/25 15:15 Admit Provider: Tony Leon
--- NOTE | 2025-07-13 13:16 | DI.RAD.S_ITS ---
PROCEDURE: XR PELVIS 1-2V INDICATIONS: fall off ladder; R hip pain and leg shortening TECHNIQUE: 1 view(s) of the pelvis acquired. COMPARISON: None. FINDINGS: Bones: Displaced right intertrochanteric fracture. Partially visualized left femoral nathan. Soft tissues: Visualized bowel gas pattern is normal. No suspicious soft tissue calcifications. IMPRESSION: Displaced right intertrochanteric fracture. Dictated by: Jakob Anguiano M.D. on 07/13/2025 at 14:14 Approved by: Jakob Anguiano M.D. on 07/13/2025 at 14:14
--- NOTE | 2025-07-13 13:16 | DI.RAD.S_ITS ---
PROCEDURE: XR CHEST 1V INDICATIONS: fall off ladder TECHNIQUE: One view of the chest was acquired. COMPARISON: [facility], JAMIL, XR CHEST 2V, 01/28/2023, 15:54. [facility], JAMIL, XR CHEST 1V, 11/04/2018, 10:52. FINDINGS: Surgical changes and devices: Partially visualized left shoulder arthroplasty Lungs and pleura: Lungs are clear. No pleural effusions or pneumothorax. Mediastinum: Mediastinal contours appear normal. Heart size is enlarged. Bones and chest wall: No suspicious bony lesions. Overlying soft tissues appear unremarkable. IMPRESSION: No acute cardiopulmonary abnormality is seen. Dictated by: Jakob Anguiano M.D. on 07/13/2025 at 14:12 Approved by: Jakob Anguiano M.D. on 07/13/2025 at 14:13
--- NOTE | 2025-07-13 13:16 | DI.RAD.S_ITS ---
PROCEDURE: XR FEMUR RT MIN 2V INDICATIONS: fall off ladder; proximal to mid femur pain TECHNIQUE: 4 views of the femur were acquired. COMPARISON: None. FINDINGS: Bones: Displaced intertrochanteric fracture of the right hip. No suspicious bony lesions. Soft tissues: No suspicious soft tissue calcifications or masses. IMPRESSION: Displaced intertrochanteric fracture of the right hip. Dictated by: Jakob Anguiano M.D. on 07/13/2025 at 14:13 Approved by: Jakob Anguiano M.D. on 07/13/2025 at 14:13
[2025-07-13 13:25] LABS: Add Manual Diff / Slide Review NO; Hematocrit 39.1 % (41-53); Hemoglobin 13.3 g/dL (13.5-17.5); Lymphocytes Absolute Auto 1200 /uL (1100-4500); Mean Corpuscular HGB Conc 34.1 % (30-36); Mean Corpuscular Hemoglobin 32.1 PG (26-34); Mean Corpuscular Volume 94.1 fL (80-100); Platelet Count 213 X10^3/uL (150-400)
--- NOTE | 2025-07-13 13:57 | EKG_ITS ---
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
[2025-07-13 13:58] LABS: INR 1.0 (0.9-1.3); Prothrombin Time 11.8 SECONDS (9.4-12.5)
[2025-07-13 14:01] LABS: PTT Partial Thromboplastin Tim 24 SECONDS (25.1-36.5)
[2025-07-13 14:02] LABS: Alanine Aminotransferase 23 IU/L (<50); Albumin 3.8 g/dL (3.5-5.0); Albumin Globulin Ratio 1.4 (1.0-2.8); Alkaline Phosphatase 74 U/L (38-126); Blood Urea Nitrogen 16 mg/dL (9-20); Calcium 8.9 mg/dL (8.4-10.2); Carbon Dioxide 27 mmol/L (22-32); Chloride 105 mmol/L (98-107); Estimated Glomerular Filt Rate > 60 mL/min (>60); Globulin 2.7 g/dL (1.7-4.1); Glucose 176 mg/dL (70-99); HEMOLYSIS < 15 (0-50); Potassium 4.1 mmol/L (3.4-5.1); Sodium 139 mmol/L (137-145); Total Protein 6.5 g/dL (6.3-8.2)
[2025-07-13] MEDS: MORPHINE 4 MG/ML INJ IV (14:13)
[2025-07-13 15:30] LABS: Culture Indicated Urine Cult Not Indicated
--- NOTE | 2025-07-13 17:05 | PM.HP.IH.1 ---
History of Present Illness History of Present Illness Date Patient Seen: 07/13/25 Time Patient Seen: 04:40 Date of Onset of Symptoms: 07/13/25 Chief complaint: Fall from ladder Narrative: 80-year-old male with history of hypertension hyperlipidemia aortic stenosis with bicuspid valve now with right hip pain after a fall from my a 5 ft ladder. Date of injury 07/13/2025. He is not on any blood thinners. He states that he only has right hip pain he has no pain elsewhere. He did have a history of a left femoral nail. Physical exam reveals a well-developed well-nourished nourished 80-year-old in no acute distress Evaluation of his right lower extremity demonstrates that he has a shortened and externally rotated right lower extremity. His skin is intact. His sensation intact to light touch in the saphenous, sural, tibial, deep peroneal and superficial peroneal nerve distributions He fires his tibialis anterior, gastroc soleus, EHL and FHL. 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) Anesthesia History of hand surgery (~1958) History of surgery (~03/1995) S/P inguinal hernia repair History of cholecystectomy (~2003) Family History Father Congestive heart failure Mother Congestive heart failure Social History marital status: household members: spouse pets and animals: No current occupational exposures/hazards: No special maru needs: No travel history: over 6 months ago leisure activities: exercise, music and other seatbelt use: always water heater temp set < 120 deg: Yes working smoke detector in home: Yes fire extinguisher in home: Yes carbon monox detector in home: Yes firearms in home: Yes firearms unloaded and locked: Yes do you feel safe at home: Yes second hand exposure: No alcohol intake: never substance use type: does not use during the past year weight has: remained stable well-balanced diet: daily or most days daily servings fruits/ve-4 caffeine: No eating out: 1-3 times/week Type(s) of exercise: walking and regular exercise Meds Home Medications and Allergies Home Medications ?Medication ?Instructions ?Recorded ?Confirmed ?Type multivitamin 1 tab PO DAILY ##0 03/11/07 07/09/25 History Collagen 2,000 mg PO BID 11/04/18 07/09/25 History cholecalciferol (vitamin D3) 25 1,000 unit PO DAILY 11/04/18 07/09/25 History mcg (1,000 unit) capsule (Vitamin D3) coenzyme Q10 100 mg capsule 300 mg PO DAILY ##0 11/04/18 07/09/25 History (CoQ-10) omega 2-aot-qej-fish oil 900 1 cap PO DAILY ##0 11/04/18 07/09/25 History mg-1,400 mg capsule,delayed release (Fish Oil) glucosamine CHv-dig-birrlxdxno 1 tab PO DAILY 07/12/19 07/09/25 History ascorbic acid (vitamin C) 1,000 mg 1 g PO DAILY 08/30/20 07/09/25 History tablet turmeric 450 mg-turmeric root 1 cap PO BID 02/06/21 07/09/25 History extract 50 mg capsule amlodipine 5 mg tablet 5 mg PO QPM #90 tabs 01/02/25 07/09/25 Rx rosuvastatin 10 mg tablet 10 mg PO QPM #90 tabs 01/02/25 07/09/25 Rx lisinopril 40 mg tablet 40 mg PO QPM #90 tabs 05/07/25 07/09/25 Rx tamsulosin 0.4 mg capsule 0.8 mg (2 x 0.4 mg) PO BEDTIME 05/15/25 07/09/25 Rx #180 caps hydrochlorothiazide 12.5 mg tablet 12.5 mg PO DAILY #90 tabs 06/15/25 07/09/25 Rx omeprazole 20 mg capsule,delayed 20 mg PO Q OTHER DAY #45 caps 06/15/25 07/09/25 Rx release Allergies Allergy/AdvReac Type Severity Reaction Status Date / Time No Known Drug Allergies Allergy Verified 07/09/25 14:14 Exam Vital Signs (past 8 hours): - 07/13/25 13:19 07/13/25 13:40 07/13/25 13:41 Temperature 98.7 F Pulse Rate 75 75 Respiratory Rate 16 Blood Pressure 186/89 H Pulse Oximetry 97 99 97 Oxygen Delivery Method Room Air 07/13/25 13:41 07/13/25 14:00 07/13/25 14:30 Temperature Pulse Rate 75 81 Respiratory Rate Blood Pressure 166/86 H Pulse Oximetry 98 96 Oxygen Delivery Method Oxygen Delivery Method Room Air Objective Labs 07/13/25 13:16 07/13/25 13:45 Labs: Laboratory Results - last 24 hr 07/13/25 07/13/25 07/13/25 13:16 13:45 14:58 WBC 6.1 RBC 4.16 L Hgb 13.3 L Hct 39.1 L MCV 94.1 MCH 32.1 MCHC 34.1 RDW 13.2 Plt Count 213 Neut % (Auto) 67.8 Lymph % (Auto) 19.0 L [place] % (Auto) 10.3 Eos % (Auto) 2.0 Baso % (Auto) 0.9 Neut # (Auto) 4200 Lymph # (Auto) 1200 [place] # (Auto) 600 Eos # (Auto) 100 Baso # (Auto) 100 PT 11.8 INR 1.0 APTT 24 L Sodium 139 Potassium 4.1 Chloride 105 Carbon Dioxide 27 BUN 16 Creatinine 0.74 Estimated GFR > 60 BUN/Creatinine Ratio 21.6 Glucose 176 H Calcium 8.9 Total Bilirubin 0.6 AST 30 ALT 23 Alkaline Phosphatase 74 Total Protein 6.5 Albumin 3.8 Globulin 2.7 Albumin/Globulin Ratio 1.4 Urine RBC 1-5/hpf Urine WBC 0-1/hpf Ur Squamous Epith Cells 0-1 /hpf Urine Bacteria None seen Ur Culture Indicated? Cult not indicated Vol Urine Centrifuged 10ml (spun) Assessment & Plan Assessment and plan (1) Closed intertrochanteric fracture of right femur: Qualifiers: Encounter type: initial encounter Fracture alignment: displaced Qualified Code(s): S72.141A - Displaced intertrochanteric fracture of right femur, initial encounter for closed fracture Status: Acute Plan: -we will admit to hospitalist for operative fixation tomorrow 07/14/2025. -NPO after midnight -Recommended 6 weeks of aspirin b.i.d. postoperatively -pain control per primary team -PT and OT he is postoperatively -appreciate hospitalist's care for this patient Time-Based Coding :: 40 minutes spent with patient and on the chart (including review of chart, obtaining history, exam, reviewing outside data, placing orders, documenting exam and treatment plan, and counseling patient) on 07/13/2025. [employer]EE [employer] Table Attendant Document charge(s): Yes
--- NOTE | 2025-07-13 17:12 | PM.HP.IH.1 ---
History of Present Illness History of Present Illness Date Patient Seen: 07/13/25 Chief complaint: Fall from ladder Narrative: 80-year-old male patient of Dr. Davis with hypertension, aortic stenosis with bicuspid aortic valve, hyperlipidemia, BPH. Presented to ER following a fall from a ladder resulting in injury to his right side. The patient was on a ladder when he lost his level vial setter and began to fall. As he was falling toward the ground, he attempted to break his fall by extending his left hand, which caused him to rotate toward his right side. He subsequently hit the asphalt directly on his right side, causing significant pain in his hip. In the ER his CBC, CMP, UA were all normal. X-ray imaging of pelvis and right femur both demonstrated displaced right intertrochanteric fracture. Orthopedics was consulted and recommend admission with plan for operative fixation tomorrow morning. 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) Anesthesia History of hand surgery (~1958) History of surgery (~03/1995) S/P inguinal hernia repair History of cholecystectomy (~2003) Family History Father Congestive heart failure Mother Congestive heart failure Social History marital status: household members: spouse pets and animals: No current occupational exposures/hazards: No special maru needs: No travel history: over 6 months ago leisure activities: exercise, music and other seatbelt use: always water heater temp set < 120 deg: Yes working smoke detector in home: Yes fire extinguisher in home: Yes carbon monox detector in home: Yes firearms in home: Yes firearms unloaded and locked: Yes do you feel safe at home: Yes second hand exposure: No alcohol intake: never substance use type: does not use during the past year weight has: remained stable well-balanced diet: daily or most days daily servings fruits/ve-4 caffeine: No eating out: 1-3 times/week Type(s) of exercise: walking and regular exercise Meds Home Medications and Allergies Home Medications ?Medication ?Instructions ?Recorded ?Confirmed ?Type multivitamin 1 tab PO DAILY ##0 03/11/07 07/13/25 History Collagen 2,000 mg PO BID 11/04/18 07/13/25 History cholecalciferol (vitamin D3) 25 1,000 unit PO DAILY 11/04/18 07/13/25 History mcg (1,000 unit) capsule (Vitamin D3) coenzyme Q10 100 mg capsule 300 mg PO DAILY ##0 11/04/18 07/13/25 History (CoQ-10) omega 3-pcx-nzu-fish oil 900 1 cap PO DAILY ##0 11/04/18 07/13/25 History mg-1,400 mg capsule,delayed release (Fish Oil) glucosamine HNi-lff-wlkvtghuiu 1 tab PO DAILY 07/12/19 07/13/25 History ascorbic acid (vitamin C) 1,000 mg 1 g PO DAILY 08/30/20 07/13/25 History tablet turmeric 450 mg-turmeric root 1 cap PO BID 02/06/21 07/13/25 History extract 50 mg capsule amlodipine 5 mg tablet 5 mg PO QPM #90 tabs 01/02/25 07/13/25 Rx rosuvastatin 10 mg tablet 10 mg PO QPM #90 tabs 01/02/25 07/13/25 Rx lisinopril 40 mg tablet 40 mg PO QPM #90 tabs 05/07/25 07/13/25 Rx hydrochlorothiazide 12.5 mg tablet 12.5 mg PO DAILY #90 tabs 06/15/25 07/13/25 Rx omeprazole 20 mg capsule,delayed 20 mg PO Q OTHER DAY #45 caps 06/15/25 07/13/25 Rx release Allergies Allergy/AdvReac Type Severity Reaction Status Date / Time No Known Drug Allergies Allergy Verified 07/09/25 14:14 Exam Vital Signs (past 8 hours): - 07/13/25 13:19 07/13/25 13:40 07/13/25 13:41 Temperature 98.7 F Pulse Rate 75 75 Respiratory Rate 16 Blood Pressure 186/89 H Pulse Oximetry 97 99 97 Oxygen Delivery Method Room Air 07/13/25 13:41 07/13/25 14:00 07/13/25 14:30 Temperature Pulse Rate 75 81 Respiratory Rate Blood Pressure 166/86 H Pulse Oximetry 98 96 Oxygen Delivery Method Oxygen Delivery Method Room Air Narrative Exam Narrative: General: Pleasant, NAD HEENT: NC/AT, EOMI, moist membranes CV: RRR, normal S1-S2, systolic murmur at RUSB Resp: CTAB, comfortable WOB Abd: Soft, NTND, +BS Ext: TTP right hip/proximal femur, neurovascularly intact distally Skin: No rash or lesions noted Neuro: A&O x3, moves all extremities, no focal deficits Objective Imaging XR PELVIS: Radiologist's impression: FINDINGS: Bones: Displaced right intertrochanteric fracture. Partially visualized left femoral nathan. Soft tissues: Visualized bowel gas pattern is normal. No suspicious soft tissue calcifications. IMPRESSION: Displaced right intertrochanteric fracture. Dictated by: Jakob Anguiano M.D. on 07/13/2025 at 14:14 Approved by: Jakob Anguiano M.D. on 07/13/2025 at 14:14 XR FEMUR RT: Radiologist's impression: FINDINGS: Bones: Displaced intertrochanteric fracture of the right hip. No suspicious bony lesions. Soft tissues: No suspicious soft tissue calcifications or masses. IMPRESSION: Displaced intertrochanteric fracture of the right hip. Dictated by: Jakob Anguiano M.D. on 07/13/2025 at 14:13 Approved by: Jakob Anguiano M.D. on 07/13/2025 at 14:13 Labs 07/13/25 13:16 07/13/25 13:45 Labs: Laboratory Results - last 24 hr 07/13/25 07/13/25 07/13/25 13:16 13:45 14:58 WBC 6.1 RBC 4.16 L Hgb 13.3 L Hct 39.1 L MCV 94.1 MCH 32.1 MCHC 34.1 RDW 13.2 Plt Count 213 Neut % (Auto) 67.8 Lymph % (Auto) 19.0 L [place] % (Auto) 10.3 Eos % (Auto) 2.0 Baso % (Auto) 0.9 Neut # (Auto) 4200 Lymph # (Auto) 1200 [place] # (Auto) 600 Eos # (Auto) 100 Baso # (Auto) 100 PT 11.8 INR 1.0 APTT 24 L Sodium 139 Potassium 4.1 Chloride 105 Carbon Dioxide 27 BUN 16 Creatinine 0.74 Estimated GFR > 60 BUN/Creatinine Ratio 21.6 Glucose 176 H Calcium 8.9 Total Bilirubin 0.6 AST 30 ALT 23 Alkaline Phosphatase 74 Total Protein 6.5 Albumin 3.8 Globulin 2.7 Albumin/Globulin Ratio 1.4 Urine RBC 1-5/hpf Urine WBC 0-1/hpf Ur Squamous Epith Cells 0-1 /hpf Urine Bacteria None seen Ur Culture Indicated? Cult not indicated Vol Urine Centrifuged 10ml (spun) Assessment & Plan Assessment and plan (1) Closed intertrochanteric fracture of right femur: Qualifiers: Encounter type: initial encounter Fracture alignment: displaced Qualified Code(s): S72.141A - Displaced intertrochanteric fracture of right femur, initial encounter for closed fracture Status: Acute (2) Essential hypertension: Status: Acute (3) Moderate aortic stenosis: Status: Chronic (4) Mixed hyperlipidemia: Status: Acute Assessment & Plan narrative: 80-year-old male with hypertension, aortic stenosis with bicuspid aortic valve, hyperlipidemia, BPH admitted for intertrochanteric fracture of right femur. #right femur fracture Displaced on imaging requiring surgical fixation. Dr. Macdonald (orthopedics) consulting, plan for operative repair tomorrow morning. -pain scale -bowel regimen -NPO after midnight #hypertension #aortic stenosis -home losartan, amlodipine qhs -hold home HCTZ until after surgery tomorrow #hyperlipidemia -home rosuvastatin Dispo: Acute care Diet: Regular DVT ppx: SCDs Code: FULL PCP: Ryan MDM: Selena Vincent (, ) Time-Based Coding :: 25 minutes spent with patient and on the chart (including review of chart, obtaining history, exam, reviewing outside data, placing orders, documenting exam and treatment plan, and counseling patient) on 07/13/2025. PROFEE Disability Insurance Claim Examiner Document charge(s): Yes Charge Codes Initial inpatient/observation care: 36468
[2025-07-13] MEDS: SODIUM CHLORIDE 0.45% 1,000 ML 100 ML IV (18:21)
--- NOTE | 2025-07-13 18:33 | PC.NURSE ---
Pt arrived from ED at 1715, transferred to bed using slide board. A&Ox4, VSS on RA, c/o 5/10 pain to R hip at rest. Pain significantly increases with movement. Breath sounds CTA, bowel sounds present, CMS+ throughout bilaterally, aside from reluctance to move R leg. Pt and oriented to room and call light. Bed in low position, call light within reach, bed alarm activated, SCDs on.
[2025-07-13] MEDS: DOCUSATE 100 MG CAPSULE PO (21:15)
[2025-07-13] MEDS: ATORVASTATIN 20 MG TABLET PO (21:15)
[2025-07-14] VITALS (16 sets, daily range): BP systolic 117–161; BP diastolic 70–88; PULSE 67–83; RESP 14–26; TEMP 36.1–37.6; O2SAT 93–98
--- NOTE | 2025-07-14 | DI.RAD.S_ITS ---
PROCEDURE: XR HIP W PEL IF DONE RT 2V INDICATIONS: POST OP TECHNIQUE: 2 view(s) of the hip acquired. COMPARISON: [facility], CR, XR HIP W PEL RT 2V, 07/14/2025, 16:16. [facility], CR, XR PELVIS 1-2V, 07/13/2025, 13:17. [facility], CR, XR FEMUR RT MIN 2V, 07/13/2025, 13:17. FINDINGS: Bones: Patient is status post right hip femoral fixation, with hardware components in expected positions. The hip joint appears congruent. The visualized bony structures appear intact. Soft tissues: Overlying postoperative changes are noted. No suspicious soft tissue densities. IMPRESSION: Right hip nathan fixation. Dictated by: Radha Christie M.D. on 07/14/2025 at 16:55 Approved by: Radha Christie M.D. on 07/14/2025 at 16:56
--- NOTE | 2025-07-14 | DI.RAD.S_ITS ---
PROCEDURE: XR HIP W PEL IF DONE RT 2V INDICATIONS: POST OP TECHNIQUE: 2 view(s) of the hip acquired. COMPARISON: [facility], CR, XR HIP W PEL RT 2V, 07/14/2025, 14:08. FINDINGS: Bones: Patient is status post right hip femoral fixation with components in expected positions. The hip joint appears congruent. The visualized bony structures appear intact. Stable left femoral nathan fixation. Soft tissues: Overlying postoperative changes are noted. No suspicious soft tissue densities. IMPRESSION: Expected post-operative appearance of right hip femoral fixation. Dictated by: Radha Christie M.D. on 07/14/2025 at 16:56 Approved by: Radha Christie M.D. on 07/14/2025 at 16:57
[2025-07-14] MEDS: SODIUM CHLORIDE 0.45% 1,000 ML 100 ML IV (04:02)
--- NOTE | 2025-07-14 08:17 | P.PN_ITS ---
Subjective Subjective Date Patient Seen: 07/14/25 Time Patient Seen: 08:17 Interval history: Patient seen in follow-up of fall and fracture of right hip. Pain control overall has been good. He has had no other changes or complaints. He has no chest pain no shortness a breath or other complaints Exam Vital Signs (past 8 hours): - 07/14/25 03:00 Temperature 97.6 F Pulse Rate 76 Respiratory Rate 18 Blood Pressure 129/80 Pulse Oximetry 95 Oxygen Flow Rate 0 Oxygen Delivery Method Room Air Oxygen Flow Rate 0 Narrative Exam Narrative: Alert male in no acute distress Lungs are clear heart is regular rate and rhythm Objective Labs 07/13/25 13:16 07/13/25 13:45 Labs: Laboratory Results - last 24 hr 07/13/25 07/13/25 07/13/25 13:16 13:45 14:58 WBC 6.1 RBC 4.16 L Hgb 13.3 L Hct 39.1 L MCV 94.1 MCH 32.1 MCHC 34.1 RDW 13.2 Plt Count 213 Neut % (Auto) 67.8 Lymph % (Auto) 19.0 L [place] % (Auto) 10.3 Eos % (Auto) 2.0 Baso % (Auto) 0.9 Neut # (Auto) 4200 Lymph # (Auto) 1200 [place] # (Auto) 600 Eos # (Auto) 100 Baso # (Auto) 100 PT 11.8 INR 1.0 APTT 24 L Sodium 139 Potassium 4.1 Chloride 105 Carbon Dioxide 27 BUN 16 Creatinine 0.74 Estimated GFR > 60 BUN/Creatinine Ratio 21.6 Glucose 176 H Calcium 8.9 Total Bilirubin 0.6 AST 30 ALT 23 Alkaline Phosphatase 74 Total Protein 6.5 Albumin 3.8 Globulin 2.7 Albumin/Globulin Ratio 1.4 Urine RBC 1-5/hpf Urine WBC 0-1/hpf Ur Squamous Epith Cells 0-1 /hpf Urine Bacteria None seen Ur Culture Indicated? 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) Anesthesia History of hand surgery (~1958) History of surgery (~03/1995) S/P inguinal hernia repair History of cholecystectomy (~2003) Family History Father Congestive heart failure Mother Congestive heart failure Social History marital status: household members: spouse pets and animals: No current occupational exposures/hazards: No special maru needs: No travel history: over 6 months ago leisure activities: exercise, music and other seatbelt use: always water heater temp set < 120 deg: Yes working smoke detector in home: Yes fire extinguisher in home: Yes carbon monox detector in home: Yes firearms in home: Yes firearms unloaded and locked: Yes do you feel safe at home: Yes Smoking Status: Never smoker second hand exposure: No alcohol intake: never substance use type: does not use during the past year weight has: remained stable well-balanced diet: daily or most days daily servings fruits/ve-4 caffeine: No eating out: 1-3 times/week Type(s) of exercise: walking and regular exercise Assessment & Plan Assessment & Plan narrative: Right hip fracture to be fixed today. Overall doing well pain control is good no other change Hypertension. Blood pressure overall stable. Would continue current meds. Aortic stenosis. Stable. No symptoms Code status full. DVT prophylaxis as per ortho. Disposition. Expect him to be here another 48 hours but will see how things go. 40 minutes spent with the patient chart review dictation orders Time-Based Coding :: [TOTAL MINUTES] spent with patient and on the chart (including review of chart, obtaining history, exam, reviewing outside data, placing orders, documenting exam and treatment plan, and counseling patient) on [DATE]. Quality VTE Deep Vein Thrombosis/Pulmonary Embolism Present on Admission: No
--- NOTE | 2025-07-14 09:40 | PM.PREOP ---
Pre-operative Note COVID-19 COVID-19 status: Not tested Interval Note History & Physical reviewed/Exam performed by Physician: Yes Changes to H&P: No
--- NOTE | 2025-07-14 12:07 | PC.NURSE ---
Day shift: Off unit for procedure in surgery at apprx 1150. Pt is off tele. Family in room and they are aware.
[2025-07-14] MEDS: ACETAMINOPHEN 325 MG TABLET 975 MG PO (12:11)
[2025-07-14] MEDS: LACTATED RINGERS 1,000 ML 42 ML IV ×2 (12:12→14:23)
[2025-07-14] MEDS: TRANEXAMIC ACID 1,000 MG in SODIUM CHLORIDE 0.9% 100 ML 200 MG IV (14:05)
--- NOTE | 2025-07-14 14:09 | SUR.OPER ---
Supine on padded [place] table with bilateral legs secured in padded positioning boots and suspended in positioning spars, operative leg in traction per surgeon. Head on one pillow. Arm on non-operative side secured on padded armboard <90 degrees abduction. Arm on operative side padded and resting across chest then secured with tape over sheet. Padded perineal post in place per surgeon.
--- NOTE | 2025-07-14 15:42 | CM.DANOTE ---
Patient is an 80 yo male who was admitted INPT Status on 07/13/25 after falling off a ladder. Pt has [employer] MCR under [employer] for insurance and his PCP is Dr. Meet Davis. EMR was reviewed. Per MD, pt very independent at baseline and had a fall off his ladder with R Femur Fx. Per Ortho Surgeon, plan of taking pt to OR today for surgical intervention. SW went by pt's room but he is off the floor to surgery and no family bedside. Per RN, pt lives at home with spouse and is quite active and independent at baseline. Family plans to be bedside after surgery. Plan: SW to follow closely for PT/OT Wednesday after pt has surgery today to determine HH vs SNF at d/c and any further identified discharge planning needs. PEDRO More Discharge Planning/Care Management CM Discharge Assessment Start: 07/13/25 15:18 Freq: Status: Active Protocol: Document 07/14/25 15:41 BF (Rec: 07/14/25 15:42 BF [id number]) Discharge Planning Assessment Assigned Discharge PEDRO Sr Case Liner Provider Meet Davis Insurance [employer] Advance Directives? Yes Advance Directives No on File History Provided By Patient,Family Member,Medical Record Has Patient been No admitted in last 30 days? Prior Living House Arrangements Household Members spouse Type of Drives own vehicle transporation used prior to admit Independent with ADL Yes 's Is patient alert and Yes oriented? Caregiver for No Another Barriers to No Discharge Discharge Plan Home with Home Health Transportation Pending PT/OT recommendations Arrangement Additional Comment Pending PT/OT post surg Review Status In Process Please Provide Date 07/14/25 Initial DC Assessment Was Performed Next Review Type Continued Stay Review
[2025-07-14] MEDS: ONDANSETRON 4 MG/2 ML INJ IV (16:28)
--- NOTE | 2025-07-14 16:52 | P.OP_ITS ---
Operative Date/Time/Diagnoses Date of procedure: 07/14/25 Time of procedure: 14:45 Pre-op diagnosis: right intertrochanteric hip fracture Post-op diagnosis: same Procedure & Clinicians Procedure: cephalomedullary nail right hip Same procedure(s) as scheduled: Yes Surgeon: Brittani Palafox Assisted?: No Anesthesia Type: General Operative Notes Findings: displaced intertroch fracture right hip Closure Type: primary Specimen(s): none sent Applied: none Estimated Blood Loss (mL): 100 Blood products transfused: none Procedure in detail: Prosthetic devices, grafts, tissues, transplants, or devices: 1. Tri Gen InterTAN nail. 10 mm x 18 cm 125 degree 2. Tri Gen InterTAN integrated interlocking lag screw 100 mm lag screw and 95 mm compression screw 3. Tri Gen 5.0 mm x 30 mm inter locking screw Applied: none Estimated Blood Loss (mL): 100 Blood products transfused: none Procedure in detail: The patient was met in the preoperative hold area the right hip was signed as the correct extremity. Patient was anesthetized on the hospital bed and the susannah ent was then transferred to [facility]. All bony prominences were padded. The patient was placed in traction boots that were well-padded. Fluoroscopic images were obtained demonstrating a reduced intertrochanteric hip fracture. Patient was prepped and in the standard sterile fashion a time-out was performed confirming the correct patient correct procedure correct extremity at initials on the operative site. 2 g of Ancef given to the patient. and 1 gram of TXA was also given. An incision was made proximal to greater trochanter. Dissection was taken to the greater trochanter and the guidewire was placed under fluoroscopic guidance. Next the opening Reamer was placed over the guidewire down to the lesser trochanter. A 10 mm nail was chosen and then placed. The guidewire for the femoral screw was then placed relatively center center within the femoral head. Tri Gen inter puri integrated interlocking lag screws were then placed using fluoroscopic guidance. I ensure the reduction was maintained. I then placed the distal interlocking screw. This measured 5.0 mm x 30 mm. Using fluoroscopic imaging the reduction and implants were evaluated and the wounds were copiously irrigated. The wounds were closed with 0 Vicryl, 2-0 Vicryl and nicky. A total of 30 cc of Marcaine was infiltrated incision site. Patient was awoken taken PACU in stable condition. Complications: none Post-operative Condition: stable Disposition: PACU Plan for aftercare: Admit for PT, pain control and ambulation F/u in 2 weeks for staple removal Weightbearing as tolerated Complications: none Post-operative Condition: stable Disposition: PACU
[2025-07-14] MEDS: ACETAMINOPHEN 325 MG TABLET 650 MG PO ×2 (17:23→23:08)
[2025-07-14] MEDS: LACTATED RINGERS 1,000 ML 100 ML IV (17:23)
--- NOTE | 2025-07-14 17:36 | PC.NURSE ---
Day shift: Back in room from PACU at approx 1700. Remains A&Ox4. Spouse in room for support. No complaints of pain. VS WNL. CMS intacvt and PPP. Dressing on rt leg is CDI. No drains and no Hagen present. Pt did not want anything to eat but is tolerating water. Call light in reach. Agrees to not get OOB w/o help from staff.
[2025-07-14] MEDS: ASPIRIN EC 81 MG TABLET PO (20:34)
[2025-07-14] MEDS: DOCUSATE 100 MG CAPSULE PO (20:34)
[2025-07-14] MEDS: ATORVASTATIN 20 MG TABLET PO (20:34)
[2025-07-14] MEDS: SODIUM CHLORIDE 0.9% FLUSH 10 ML IV (20:34)
[2025-07-15] VITALS (9 sets, daily range): BP systolic 98–143; BP diastolic 64–85; PULSE 62–85; RESP 16–20; TEMP 36.2–37.6; O2SAT 90–95
[2025-07-15] MEDS: LACTATED RINGERS 1,000 ML 100 ML IV (04:18)
[2025-07-15 05:32] LABS: Add Manual Diff / Slide Review NO; Hematocrit 32.3 % (41-53); Hemoglobin 11.1 g/dL (13.5-17.5); Lymphocytes Absolute Auto 500 /uL (1100-4500); Mean Corpuscular HGB Conc 34.2 % (30-36); Mean Corpuscular Hemoglobin 32.3 PG (26-34); Mean Corpuscular Volume 94.4 fL (80-100); Platelet Count 158 X10^3/uL (150-400)
[2025-07-15 05:43] LABS: Blood Urea Nitrogen 19 mg/dL (9-20); Calcium 8.0 mg/dL (8.4-10.2); Carbon Dioxide 26 mmol/L (22-32); Chloride 104 mmol/L (98-107); Estimated Glomerular Filt Rate > 60 mL/min (>60); Glucose 135 mg/dL (70-99); HEMOLYSIS < 15 (0-50); Potassium 4.6 mmol/L (3.4-5.1); Sodium 134 mmol/L (137-145)
[2025-07-15] MEDS: PANTOPRAZOLE DR 20 MG TABLET PO (06:18)
[2025-07-15] MEDS: ACETAMINOPHEN 325 MG TABLET 650 MG PO ×4 (06:18→22:00)
[2025-07-15] MEDS: DOCUSATE 100 MG CAPSULE PO ×2 (09:16→21:59)
[2025-07-15] MEDS: MELOXICAM 7.5 MG TABLET 15 MG PO (09:16)
[2025-07-15] MEDS: ASPIRIN EC 81 MG TABLET PO ×2 (09:16→21:59)
--- NOTE | 2025-07-15 09:43 | P.PN_ITS ---
Subjective Subjective Date Patient Seen: 07/15/25 Time Patient Seen: 09:43 Interval history: Patient overall feeling well. Hip pain is better now that just had surgery. Having no chest pain no shortness a breath no other change. Energy level is overall good. Has not had physical therapy at Exam Vital Signs (past 8 hours): - 07/15/25 04:00 07/15/25 07:00 07/15/25 09:40 Temperature 97.1 F L Pulse Rate 68 Respiratory Rate 18 Blood Pressure 98/64 Pulse Oximetry 92 94 Oxygen Delivery Method Nasal Cannula Nasal Cannula Oxygen Flow Rate 1 1 Oxygen Delivery Method Nasal Cannula Oxygen Flow Rate 1 Narrative Exam Narrative: Alert male smiling interactive no acute distress Lungs are clear heart is regular rate and rhythm with unchanged murmur Objective Labs 07/15/25 05:20 07/15/25 05:20 Labs: Laboratory Results - last 24 hr 07/15/25 05:20 WBC 8.9 RBC 3.42 L Hgb 11.1 L Hct 32.3 L MCV 94.4 MCH 32.3 MCHC 34.2 RDW 13.6 Plt Count 158 Neut % (Auto) 84.9 H Lymph % (Auto) 6.0 L [place] % (Auto) 8.7 Eos % (Auto) 0.0 L Baso % (Auto) 0.4 Neut # (Auto) 7600 H Lymph # (Auto) 500 L [place] # (Auto) 800 Eos # (Auto) 0 Baso # (Auto) 0 Sodium 134 L Potassium 4.6 Chloride 104 Carbon Dioxide 26 BUN 19 Creatinine 0.83 Estimated GFR > 60 BUN/Creatinine Ratio 22.9 H Glucose 135 H Calcium 8.0 L PFSH Medical History Moderate aortic stenosis Bicuspid aortic valve BPH w urinary obs/LUTS Elevated liver enzymes HTN (hypertension) Schatzki's ring (~01/2021) Vision disorder Shoulder pain (~2017) Elevated PSA (~2012) Mixed hyperlipidemia History of adenomatous polyp of colon Essential hypertension (~2000) History of kidney stones Finger amputation, no complication Surgical History S/P cataract extraction [place] teeth removed 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) Anesthesia History of hand surgery (~1958) History of surgery (~03/1995) S/P inguinal hernia repair History of cholecystectomy (~2003) Family History Father Congestive heart failure Mother Congestive heart failure Social History marital status: household members: spouse pets and animals: No current occupational exposures/hazards: No special maru needs: No travel history: over 6 months ago leisure activities: exercise, music and other seatbelt use: always water heater temp set < 120 deg: Yes working smoke detector in home: Yes fire extinguisher in home: Yes carbon monox detector in home: Yes firearms in home: Yes firearms unloaded and locked: Yes do you feel safe at home: Yes Smoking Status: Never smoker second hand exposure: No alcohol intake: never substance use type: does not use during the past year weight has: remained stable well-balanced diet: daily or most days daily servings fruits/ve-4 caffeine: No eating out: 1-3 times/week Type(s) of exercise: walking and regular exercise Assessment & Plan Assessment & Plan narrative: Blood loss anemia. Will add iron. Can follow as outpatient. No other change Hypertension. Slightly low this morning but has been stable. Will continue to follow hopefully will start to improve as he gets up and mobilizes. Will just have to see. May need to back down on his blood pressure medicines depending on what is going on. Right hip fracture. As per orthopedist seems to be doing well. Aortic stenosis. Stable. Obviously no change no symptoms Code status full. DVT prophylaxis as per ortho Disposition. Patient overall is doing well. Certainly in good spirits this morning. We will really depend on how quickly he is able to mobilize and manage ADLs. Could be home given that he does not have a lot of stairs or may need rehab. Will see what physical therapy feels over the next 24-48 hours. Time-Based Coding :: [TOTAL MINUTES] spent with patient and on the chart (including review of chart, obtaining history, exam, reviewing outside data, placing orders, documenting exam and treatment plan, and counseling patient) on [DATE]. Quality VTE Deep Vein Thrombosis/Pulmonary Embolism Present on Admission: No
--- NOTE | 2025-07-15 12:11 | PM.PNPO.1 ---
Subjective Subjective Date Patient Seen: 07/15/25 Time Patient Seen: 11:59 Interval history: 80-year-old male status post right hip cephalomedullary nail postoperative day 1. He reports that his pain is well-controlled. He has not been up yet with physical therapy. He denies chest pain, shortness of breath, nausea or vomiting. Physical exam reveals a well-developed well-nourished 80-year-old in no acute distress Evaluation of his right lower extremity demonstrates that his dressing is intact and clean. Sensation is intact to light touch distally in the saphenous, sural, tibial, deep peroneal and superficial peroneal nerve distributions. He fires his tibialis anterior, gastroc soleus, EHL and FHL. His dorsalis pedis pulses 2+ and he has brisk capillary refill Exam Vital Signs (past 8 hours): - 07/15/25 07:00 07/15/25 07:35 07/15/25 09:40 Temperature 97.1 F L Pulse Rate 85 Respiratory Rate 16 Blood Pressure 143/85 H Pulse Oximetry 95 94 Oxygen Delivery Method Nasal Cannula Nasal Cannula Oxygen Flow Rate 0 1 Oxygen Delivery Method Nasal Cannula Oxygen Flow Rate 1 Objective Labs 07/15/25 05:20 07/15/25 05:20 Labs: Laboratory Results - last 24 hr 07/15/25 05:20 WBC 8.9 RBC 3.42 L Hgb 11.1 L Hct 32.3 L MCV 94.4 MCH 32.3 MCHC 34.2 RDW 13.6 Plt Count 158 Neut % (Auto) 84.9 H Lymph % (Auto) 6.0 L [place] % (Auto) 8.7 Eos % (Auto) 0.0 L Baso % (Auto) 0.4 Neut # (Auto) 7600 H Lymph # (Auto) 500 L [place] # (Auto) 800 Eos # (Auto) 0 Baso # (Auto) 0 Sodium 134 L Potassium 4.6 Chloride 104 Carbon Dioxide 26 BUN 19 Creatinine 0.83 Estimated GFR > 60 BUN/Creatinine Ratio 22.9 H Glucose 135 H Calcium 8.0 L PFSH Medical History Bicuspid aortic valve BPH w urinary obs/LUTS Elevated liver enzymes Elevated PSA (~2012) Essential hypertension (~2000) Finger amputation, no complication History of adenomatous polyp of colon History of kidney stones HTN (hypertension) Mixed hyperlipidemia Moderate aortic stenosis Schatzki's ring (~01/2021) Shoulder pain (~2017) Vision disorder Surgical History Anesthesia History of cholecystectomy (~2003) History of hand surgery (~1958) History of surgery (~03/1995) S/P cataract extraction S/P inguinal hernia repair 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) [place] teeth removed Family History Father Congestive heart failure Mother Congestive heart failure Social History marital status: household members: spouse pets and animals: No current occupational exposures/hazards: No special maru needs: No travel history: over 6 months ago leisure activities: exercise, music and other seatbelt use: always water heater temp set < 120 deg: Yes working smoke detector in home: Yes fire extinguisher in home: Yes carbon monox detector in home: Yes firearms in home: Yes firearms unloaded and locked: Yes do you feel safe at home: Yes Smoking Status: Never smoker second hand exposure: No alcohol intake: never substance use type: does not use during the past year weight has: remained stable well-balanced diet: daily or most days daily servings fruits/ve-4 caffeine: No eating out: 1-3 times/week Type(s) of exercise: walking and regular exercise Assessment & Plan Post-op Postoperative Procedures: Procedures Operation Date: 07/14/25 10:15 Actual Procedure Side Surgeon p Intramedullary Nailing Femur Right Brittani Palafox DO Postoperative day: 1 Postoperative status: doing well Postoperative plan: routine post-op care Postoperative plan narrative: Aspirin b.i.d. x6 weeks. Weightbearing as tolerated with physical therapy. Dispo planning per hospitalist. Follow up in Orthopedic Clinic in 2 weeks staple removal. Time Spent With Patient Time with patient: less than 15 minutes Quality VTE Deep Vein Thrombosis/Pulmonary Embolism Present on Admission: No
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
--- NOTE | 2025-07-15 16:50 | PT.IIE ---
Current Diagnoses Mixed hyperlipidemia (07/13/25) Essential (primary) hypertension (07/13/25) Nonrheumatic aortic (valve) stenosis (07/13/25) Displaced intertrochanteric fracture of right femur, initial encounter for closed fracture (07/13/25) Surgery Performed Operation Date: 07/14/25 10:15 Actual Procedures p Intramedullary Nailing Femur(Right) - Brittani Palafox DO Surgical History (Last Reviewed 07/15/25 @ 12:14 by Brittani Palafox DO) Anesthesia History of cholecystectomy (~2003) History of hand surgery (~1958) History of surgery (~03/1995) S/P cataract extraction S/P inguinal hernia repair 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) [place] teeth removed Medical History (Last Reviewed 07/15/25 @ 12:14 by Brittani Palafox DO) Bicuspid aortic valve BPH w urinary obs/LUTS Elevated liver enzymes Elevated PSA (~2012) Essential hypertension (~2000) Finger amputation, no complication History of adenomatous polyp of colon History of kidney stones HTN (hypertension) Mixed hyperlipidemia Moderate aortic stenosis Schatzki's ring (~01/2021) Shoulder pain (~2017) Vision disorder Physical Therapy Inpatient Evaluation/Re-Eval M1 PT IP Prior Functional Status Start: 07/15/25 16:53 Freq: NEEDED Status: Active Protocol: Document 07/15/25 16:50 DLM (Rec: 07/15/25 17:11 DLM Desktop) Medical Review Prior Functional Status Medical History Yes Reviewed Diet/Fluid Regular Consistency Communication WNL Mobility and Gait Independent, no device, active in community Activities of Daily Independent, drives Living and IADL's Prior Functional still works with [employer] (Other details ) Social History Household Members spouse Living Arrangements House Number of Floors ( One Floor Floors) Number of Stairs To none Enter/Railing? 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 PT-IP Current Condition Start: 07/15/25 16:53 Freq: NEEDED Status: Active Protocol: Document 07/15/25 16:50 DLM (Rec: 07/15/25 17:11 DLM Desktop) Physical Therapy Current Condition Current Condition Evaluation Date 07/15/25 Treatment Diagnosis fall, right hip ORIF 07/14/25, impaired gait Onset Date 07/13/25 M3 PT-IP Subjective Start: 07/15/25 16:53 Freq: NEEDED Status: Active Protocol: Document 07/15/25 16:50 DLM (Rec: 07/15/25 17:11 DLM Desktop) Subjective Physical Therapy Visit Type Type Initial Evaluation Visit Start Time 15:55 Visit Stop Time 16:50 Notes 55 min Number of NURSE PRACTITIONER PHYSICIAN ASSISTANT Visits 0 Physical Therapy Visit Comments Patient Comments He reports it feels better to get up walking. He sat up in the recliner earlier today and visited with family/ friends. Patient Goals discharge home Therapy Pain Assessment Pain When Pain Assessed During Mobility Pain Present Pain Present Pain Reported Location Right Hip Intensity 5 Scale Used Numeric (0 - 10) Description Aching,Tender,Tightness,With Movement Pain Behaviors Guarding,Wincing Pain Management Apply Cold,Elevation,Re-positioning,Timing of Activity Techniques with Medications M4 PT-IP Mobility and Gait Start: 07/15/25 16:53 Freq: NEEDED Status: Active Protocol: Document 07/15/25 16:50 DLM (Rec: 07/15/25 17:11 DLM Desktop) PT-Bed Mobility Assessment Supine to Sit Supine to Sit Minimal Assistance Sit to Supine Sit to Supine Minimal Assistance Scooting Scooting to Edge of Independent Bed PT-Transfer Assessment Sit to and From Stand Sit to and from Standby Assistance Stand Equipment Transfer Assistive Gait Belt,Front Wheeled Walker Device Transfers Transfer Destination Bed Transfer Technique Stand Step Pivot Transfer Ability Level of Assist Standby Assistance,Use of Upper Extremities Comments Mobility Comments verbal cues to remind pt to kick right foot out before sitting to manage his pain, he uses UE's well during sit to/from stand He needs min assist for right LE in/out of bed due to functional weakness and pain. Gait Assessment Gait Gait Assistance Standby Assistance Required: Distance (Feet) 70 Able to Maintain Yes Weight Bearing Status During Gait Assistive Devices Assistive Device Gait Belt,Front Wheeled Walker Gait Deviations General Gait Pattern Antalgic,Decreased Stride Length Factors Limiting Gait Function Factors Limiting Decreased Activity Tolerance,Decreased Strength,Limited Gait Function Range of Motion,Pain Comments Gait Comments education for safe use of FWW and step-to gait pattern to manage his pain he demonstrates good UE compensation on FWW during gait , 12/16 pain with activity, 2/10 pain at rest Stair Climbing Assessment Comments Stair Climbing no steps at home Comments PT-Balance Assessment Sitting Balance and Reactions Static Sitting Good Balance Ability Dynamic Sitting Good Balance Ability Standing Balance and Reactions Static Standing Good Balance Ability Dynamic Standing Good Balance Ability Device Used FWW M5 PT-IP Objective Assessments Start: 07/15/25 16:53 Freq: NEEDED Status: Active Protocol: Document 07/15/25 16:50 DLM (Rec: 07/15/25 17:11 DLM Desktop) Orientation Orientation/Cognition Level of Alertness Alert Orientation Name,Age,Birthday,Month,Date,Year,Day of Week,Place, Situation Language Function No Deficits Noted Ability Safety Awareness Understands Safety Issues Memory Description No Deficits Noted Gross Range of Motion Upper Extremity ROM Assessment Within Functional Limits Lower Extremity ROM Assessment Right Impaired Impairments pain right hip with flexion and abduction, pain in thigh area with end range knee flexion Strength Upper Extremity Strength Assessment Within Functional Limits Lower Extremity Strength Assessment Right Impaired Hip flex 2+/5 Knee ext 3-/5 Ankle 5/5 Coordination Assessment Gross Coordination Gross Coordination WNL Sensation Assessment Comments Sensation Comments he reports mild tingling in right thigh area today post -op Muscle Tone Muscle Tone WNL Yes M6 PT-IP Treatment Start: 07/15/25 16:53 Freq: NEEDED Status: Active Protocol: Document 07/15/25 16:50 DLM (Rec: 07/15/25 17:11 DLM Desktop) Physical Therapy Treatment Exercises Exercises Ankle Pumps,Gluteal Sets,Quad Sets,Heel Slides,Supine Hip Abduction Education Education Provided Weight Bearing Status,Post-Op Packet,Safety Other Treatments Other Treatment His was present to participate in education, Performed answered questions about home equipment needs, icing and therapy progression M7 PT-IP Assessment and Plan Start: 07/15/25 16:53 Freq: NEEDED Status: Active Protocol: Document 07/15/25 16:50 DLM (Rec: 07/15/25 17:11 DLM Desktop) PT Summary Assessment and Plan Potential Rehabilitation Good Potential Status of Condition Evolving at Evaluation Summary Impairments Pain,ROM,Strength,Balance,Bed Mobility,Transfers,Gait, Activity Tolerance Assessment Summary Paul is alert and sitting up in the recliner today. He was admitted after a fall at home off a ladder. He suffered right intertrochanteric hip fx. He underwent surgery for cephalomedullary nail right hip 07/14/25. He is progressing well today post-op day one. He has been sitting up in the recliner. He was able to ambulate a short distance in the [place] with the FWW and stand by assist. His right LE pain limits his activity tolerance and functional strength today. No dizziness during gait. Pt left in bed to rest after activity. Educated pt and his in post-op precautions and exercises. Pt and his want to discharge home. They prefer out -pt Physical Therapy after discharge. Goals Bed Mobility Goal Independent Transfer Goal Independent,Front Wheeled Walker Gait Goal Independent,Front Wheel Walker Gait Distance 150 feet Days to Meet Goals 3 Frequency of Treatment Frequency Of Once a Day Treatment Treatment Plan Physical Therapy Bed Mobility Training,Transfer Training,Gait Training, Treatment Plan Therapeutic Exercise,Balance Retraining,Post Op Education,Discharge Planning,Hot or Cold Pack, Neuromuscular Re-ed Weight Bearing Status Weight Bearing Weight Bear as Tolerated Status Allowed Weight right LE s/p ORIF, use FWW Bearing Amount ( enter % or #) (%) Recommendations To Nursing Amount of Assist 1 Person Assist Needed Discharge Recommendations PT Discharge Home with Assistance,Outpatient PT Recommendations Other Discharge FWW, bath seat, leg butcher apprentice, toilet safety frame needed Recommendations at home Equipment Needed for FWW Home Before Discharge Transportation Needs Private Vehicle at Discharge - PT assist 1
[2025-07-15] MEDS: FERROUS SULFATE 325 MG TABLET PO (17:30)
[2025-07-15] MEDS: ATORVASTATIN 20 MG TABLET PO (21:59)
[2025-07-15] MEDS: SODIUM CHLORIDE 0.9% FLUSH 10 ML IV (22:03)
[2025-07-16 03:00] VITALS: BP 132/79; PULSE 62; RESP 18; TEMP 36.4; O2SAT 96
[2025-07-16] MEDS: ACETAMINOPHEN 325 MG TABLET 650 MG PO ×4 (06:09→23:22)
[2025-07-16] MEDS: PANTOPRAZOLE DR 20 MG TABLET PO (06:10)
[2025-07-16 07:00] VITALS: BP 136/71; PULSE 60; RESP 18; TEMP 37.2; O2SAT 96
--- NOTE | 2025-07-16 07:20 | P.PN_ITS ---
Subjective Subjective Date Patient Seen: 07/16/25 Time Patient Seen: 07:20 Interval history: Patient well known to me in fact seen in the clinic just within the last couple of weeks sustained a fall resulting in hip fracture which she had repaired on Wednesday the 14 of July His only basically started with any sort of skilled therapy as of yesterday (at only physical therapy) but doing okay. Likely to be able to go home some point This morning he reports pain is adequately controlled pretty low-level. It has been up out of bed is sitting in the bedside chair. Anticipating more physical therapy today Exam Vital Signs (past 8 hours): - 07/16/25 03:00 Temperature 97.6 F Pulse Rate 62 Respiratory Rate 18 Blood Pressure 132/79 Pulse Oximetry 96 Oxygen Flow Rate 0 Oxygen Delivery Method Nasal Cannula Oxygen Flow Rate 0 Objective Labs 07/15/25 05:20 07/15/25 05:20 [facility] Medical History Bicuspid aortic valve BPH w urinary obs/LUTS Elevated liver enzymes Elevated PSA (~2012) Essential hypertension (~2000) Finger amputation, no complication History of adenomatous polyp of colon History of kidney stones HTN (hypertension) Mixed hyperlipidemia Moderate aortic stenosis Schatzki's ring (~01/2021) Shoulder pain (~2017) Vision disorder Surgical History Anesthesia History of cholecystectomy (~2003) History of hand surgery (~1958) History of surgery (~03/1995) S/P cataract extraction S/P inguinal hernia repair 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) [place] teeth removed Family History Father Congestive heart failure Mother Congestive heart failure Social History marital status: household members: spouse pets and animals: No current occupational exposures/hazards: No special maru needs: No travel history: over 6 months ago leisure activities: exercise, music and other seatbelt use: always water heater temp set < 120 deg: Yes working smoke detector in home: Yes fire extinguisher in home: Yes carbon monox detector in home: Yes firearms in home: Yes firearms unloaded and locked: Yes do you feel safe at home: Yes Smoking Status: Never smoker second hand exposure: No alcohol intake: never substance use type: does not use during the past year weight has: remained stable well-balanced diet: daily or most days daily servings fruits/ve-4 caffeine: No eating out: 1-3 times/week Type(s) of exercise: walking and regular exercise Assessment & Plan Assessment & Plan narrative: 1. Status post ORIF right hip fracture, postop day 2. Continue wound care and precautions as per Orthopedic surgery. Needs to ramp up on skilled therapy to determine next steps (i.e. whether he can go home or will need custodial placement) 2. Hypertension-adequate control no reason to make any changes today 3. Disposition-probably able to go home but we will need additional PT and OT before we can make that final determination. Maybe ready to go home as soon as tomorrow but more likely Wednesday the 18 of July Time-Based Coding :: [TOTAL MINUTES] spent with patient and on the chart (including review of chart, obtaining history, exam, reviewing outside data, placing orders, documenting exam and treatment plan, and counseling patient) on [DATE]. 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
--- NOTE | 2025-07-16 08:16 | PT.IPTN ---
Current Diagnoses Mixed hyperlipidemia (07/13/25) Essential (primary) hypertension (07/13/25) Nonrheumatic aortic (valve) stenosis (07/13/25) Displaced intertrochanteric fracture of right femur, initial encounter for closed fracture (07/13/25) Surgery Performed Operation Date: 07/14/25 10:15 Actual Procedures p Intramedullary Nailing Femur(Right) - Brittani Palafox, DO Physical Therapy Treatment Note M2 PT-IP Current Condition Start: 07/15/25 16:53 Freq: NEEDED Status: Active Protocol: Document 07/16/25 07:57 SP (Rec: 07/16/25 11:34 SP [id number]) Physical Therapy Current Condition Current Condition Evaluation Date 07/15/25 Treatment Diagnosis fall, right hip ORIF 07/14/25, impaired gait Onset Date 07/13/25 M3 PT-IP Subjective Start: 07/15/25 16:53 Freq: NEEDED Status: Active Protocol: Document 07/16/25 07:57 SP (Rec: 07/16/25 11:34 SP [id number]) Subjective Physical Therapy Visit Type Type Treatment Note Visit Start Time 07:57 Visit Stop Time 08:16 Notes 19 min Number of PAYROLL EXAMINER Visits 1 Physical Therapy Visit Comments Patient Comments Pt was up in chair when arrived, agreeable to working with PAYROLL EXAMINER. Patient Goals discharge home with to assist him, will not be doing any stairs at this time, has some to go down to the office but needing to do right now, when does later might drive in car around to the back and enter through the lower enterance until feels strong enough to complete with HR and SPC support due to wide rails. Therapy Pain Assessment Pain When Pain Assessed During Mobility Pain Present Pain Present Pain Reported Location Right Hip Intensity 2 Scale Used with mobility Description Aching,Tender,Tightness,With Movement Pain Behaviors Guarding,Wincing Pain Management Elevation,Re-positioning Techniques M4 PT-IP Mobility and Gait Start: 07/15/25 16:53 Freq: NEEDED Status: Active Protocol: Document 07/16/25 07:57 SP (Rec: 07/16/25 11:34 SP [id number]) PT-Transfer Assessment Sit to and From Stand Sit to and from Standby Assistance Stand Equipment Transfer Assistive Gait Belt,Front Wheeled Walker Device Transfers Transfer Destination Chair Transfer Technique pt ambulated with FWW Transfer Ability Level of Assist Standby Assistance,Contact Guard Assistance,Use of Upper Extremities Comments Mobility Comments Improved vitals: 151/76 HR 62 96% on RA and 43/87 standing nonsymptomatic only 2/10 pain with mobility. self correction comfort support positioning RLE out in front little more before sitting & standing. Cues for TKE and encouraged WBAT allowance on RLE with cuing needs (see gait) able decrease amount of UE WB needed with distance progression around the room and states has been mobilizing with nursing. Gait Assessment Gait Gait Assistance Standby Assistance,1 Person Assist Required: Distance (Feet) 30 Able to Maintain Yes Weight Bearing Status During Gait Assistive Devices Assistive Device Gait Belt,Front Wheeled Walker Gait Deviations General Gait Pattern Antalgic,Decreased Stride Length,Decreased Feet Clearance,Narrow Based Gait,Step-to Gait Factors Limiting Gait Function Factors Limiting Decreased Activity Tolerance,Decreased Strength,Limited Gait Function Range of Motion,Pain Comments Gait Comments education for safe use of FWW and step-to gait pattern to manage his pain, encouraged to WBAT on RLE march stepping for foot clearance and support with BUE straight, back stepping and pivot turns with FWW. he demonstrates good UE WB (heavy>moderate) on FWW during gait, 2/10 pain during mobility. Stair Climbing Assessment Comments Stair Climbing has 14 stairs (wide rails/unable to use both at same Comments time) down to the lower level office, but not need to perform at this time, lives on main level. PT-Balance Assessment Sitting Balance and Reactions Static Sitting Normal Balance Ability Dynamic Sitting Good Balance Ability Standing Balance and Reactions Static Standing Good Balance Ability Dynamic Standing Good Balance Ability Device Used FWW M5 PT-IP Objective Assessments Start: 07/15/25 16:53 Freq: NEEDED Status: Active Protocol: Document 07/15/25 16:50 DLM (Rec: 07/15/25 17:11 DLM Desktop) Orientation Orientation/Cognition Level of Alertness Alert Orientation Name,Age,Birthday,Month,Date,Year,Day of Week,Place, Situation Language Function No Deficits Noted Ability Safety Awareness Understands Safety Issues Memory Description No Deficits Noted Gross Range of Motion Upper Extremity ROM Assessment Within Functional Limits Lower Extremity ROM Assessment Right Impaired Impairments pain right hip with flexion and abduction, pain in thigh area with end range knee flexion Strength Upper Extremity Strength Assessment Within Functional Limits Lower Extremity Strength Assessment Right Impaired Hip flex 2+/5 Knee ext 3-/5 Ankle 5/5 Coordination Assessment Gross Coordination Gross Coordination WNL Sensation Assessment Comments Sensation Comments he reports mild tingling in right thigh area today post -op Muscle Tone Muscle Tone WNL Yes M6 PT-IP Treatment Start: 07/15/25 16:53 Freq: NEEDED Status: Active Protocol: Document 07/16/25 07:57 SP (Rec: 07/16/25 11:34 SP [id number]) Physical Therapy Treatment Education Education Provided Weight Bearing Status,Post-Op Packet,Safety Other Treatments Other Treatment Education patterning for stairs when able lead LLE, use Performed of SPC and 1 HR for stair mgt due to wide HRs to down to office. Decreased strength and RLE stance time unable to assess and not needed for DC home at this time, lives on main level. M7 PT-IP Assessment and Plan Start: 07/15/25 16:53 Freq: NEEDED Status: Active Protocol: Document 07/16/25 07:57 SP (Rec: 07/16/25 11:34 SP [id number]) PT Summary Assessment and Plan Potential Rehabilitation Good Potential Status of Condition Evolving at Evaluation Summary Impairments Pain,ROM,Strength,Balance,Bed Mobility,Transfers,Gait, Activity Tolerance Assessment Summary Paul is alert and sitting up in the recliner today. Pt required decrease CG>SBA during transfer and gait with FWW, good recall and use of FWW, post-op precautions and exercises. PAYROLL EXAMINER recommending with pt preference out-pt Physical Therapy when medically cleared, PAYROLL EXAMINER dispensed FWW today for self support home, didn't think would be able to borrow FWW until tomorrow and knew might go home today. DIscussed proper patterning stair mgt to office when able but both in agreement wait til do in outpatient PT. Goals Bed Mobility Goal Independent Transfer Goal Independent,Front Wheeled Walker Gait Goal Independent,Front Wheel Walker Gait Distance 150 feet Days to Meet Goals 3 Frequency of Treatment Frequency Of Once a Day Treatment Treatment Plan Physical Therapy Bed Mobility Training,Transfer Training,Gait Training, Treatment Plan Therapeutic Exercise,Balance Retraining,Post Op Education,Discharge Planning,Hot or Cold Pack, Neuromuscular Re-ed Other LE ther ex, further distance gait with FWW, 14 step mgt Recommendations and (wide rails to lower level to office) when tolerate to Next Treatment Focus assess. Weight Bearing Status Weight Bearing Weight Bear as Tolerated Status Allowed Weight right LE s/p ORIF, use FWW Bearing Amount ( enter % or #) (%) Recommendations To Nursing Amount of Assist 1 Person Assist Needed Discharge Recommendations PT Discharge Home with Assistance,Outpatient PT Recommendations Other Discharge Provided HO for DME business suggestions if needed: Recommendations bath seat, leg feed mill operator, toilet safety frame needed at home Equipment Needed for Dispensed FWW this am Home Before Discharge Transportation Needs Private Vehicle at Discharge - PT assist 1
[2025-07-16] MEDS: ASPIRIN EC 81 MG TABLET PO ×2 (08:40→20:53)
[2025-07-16] MEDS: MELOXICAM 7.5 MG TABLET 15 MG PO (08:40)
[2025-07-16] MEDS: FERROUS SULFATE 325 MG TABLET PO ×2 (08:40→17:25)
[2025-07-16] MEDS: SODIUM CHLORIDE 0.9% FLUSH 10 ML IV ×2 (08:41→20:53)
[2025-07-16] MEDS: DOCUSATE 100 MG CAPSULE PO ×2 (08:41→20:52)
[2025-07-16 13:36] VITALS: BP 122/68; PULSE 62; RESP 18; TEMP 36.5; O2SAT 98
--- NOTE | 2025-07-16 13:49 | PM.PNPO.1 ---
Subjective Subjective Date Patient Seen: 07/16/25 Time Patient Seen: 01:00 Interval history: 80-year-old male status post right hip cephalomedullary nail postoperative day 2. He reports that his pain is well-controlled. He has ambulated with physical therapy. He denies chest pain, shortness of breath, nausea or vomiting. Physical exam reveals a well-developed well-nourished 80-year-old in no acute distress Evaluation of his right lower extremity demonstrates that his dressing is intact and clean. Sensation is intact to light touch distally in the saphenous, sural, tibial, deep peroneal and superficial peroneal nerve distributions. He fires his tibialis anterior, gastroc soleus, EHL and FHL. His dorsalis pedis pulses 2+ and he has brisk capillary refill Exam Vital Signs (past 8 hours): - 07/16/25 07:00 07/16/25 13:36 Temperature 99 F 97.7 F Pulse Rate 60 62 Respiratory Rate 18 18 Blood Pressure 136/71 122/68 Pulse Oximetry 96 98 Oxygen Flow Rate 0 0 Oxygen Delivery Method Nasal Cannula Oxygen Flow Rate 0 Objective Labs 07/15/25 05:20 07/15/25 05:20 [facility] Medical History Bicuspid aortic valve BPH w urinary obs/LUTS Elevated liver enzymes Elevated PSA (~2012) Essential hypertension (~2000) Finger amputation, no complication History of adenomatous polyp of colon History of kidney stones HTN (hypertension) Mixed hyperlipidemia Moderate aortic stenosis Schatzki's ring (~01/2021) Shoulder pain (~2017) Vision disorder Surgical History Anesthesia History of cholecystectomy (~2003) History of hand surgery (~1958) History of surgery (~03/1995) S/P cataract extraction S/P inguinal hernia repair 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) [place] teeth removed Family History Father Congestive heart failure Mother Congestive heart failure Social History marital status: household members: spouse pets and animals: No current occupational exposures/hazards: No special maru needs: No travel history: over 6 months ago leisure activities: exercise, music and other seatbelt use: always water heater temp set < 120 deg: Yes working smoke detector in home: Yes fire extinguisher in home: Yes carbon monox detector in home: Yes firearms in home: Yes firearms unloaded and locked: Yes do you feel safe at home: Yes second hand exposure: No alcohol intake: never substance use type: does not use during the past year weight has: remained stable well-balanced diet: daily or most days daily servings fruits/ve-4 caffeine: No eating out: 1-3 times/week Type(s) of exercise: walking and regular exercise Assessment & Plan Post-op Postoperative Procedures: Procedures Operation Date: 07/14/25 10:15 Actual Procedure Side Surgeon p Intramedullary Nailing Femur Right Brittani Palafox, Postoperative day: 2 Postoperative status: doing well Postoperative plan narrative: - Aspirin BID x 2 weeks. - WBAT with PT/OT - F/u in 2 weeks for wound check and staple removal. Time Spent With Patient Time with patient: less than 15 minutes Quality VTE Deep Vein Thrombosis/Pulmonary Embolism Present on Admission: No
--- NOTE | 2025-07-16 16:26 | CM.DPC ---
DCP Home Planning: Per MD, pt making progress but wants him to remain until maybe tomorrow to confirm safe home plan with spouse after having more time with PT/OT. Per Ortho Surgeon, pt making great progress and no barriers to discharge. Per PT/OT, pt ambulating well with FWW and issued pt a walker already and recommending home with spouse and outpt PT. Per RN, pt very independent and mobilizing well and no concerns noted. Plan: SW to follow for plan of discharge home with spouse tomorrow Tues with outpt f/u and no discharge needs anticipated. Orin Navarro MSW
--- NOTE | 2025-07-16 16:44 | OT.IP.EVAL ---
Current Diagnoses Mixed hyperlipidemia (07/13/25) Essential (primary) hypertension (07/13/25) Nonrheumatic aortic (valve) stenosis (07/13/25) Displaced intertrochanteric fracture of right femur, initial encounter for closed fracture (07/13/25) Surgery Performed Operation Date: 07/14/25 10:15 Actual Procedures p Intramedullary Nailing Femur(Right) - Brittani Palafox DO Past Medical History (Last Reviewed 07/15/25 @ 12:14 by Brittani Palafox DO) Bicuspid aortic valve BPH w urinary obs/LUTS Elevated liver enzymes Elevated PSA (~2012) Essential hypertension (~2000) Finger amputation, no complication History of adenomatous polyp of colon History of kidney stones HTN (hypertension) Mixed hyperlipidemia Moderate aortic stenosis Schatzki's ring (~01/2021) Shoulder pain (~2017) Vision disorder Surgical History (Last Reviewed 07/15/25 @ 12:14 by Brittani Palafox DO) Anesthesia History of cholecystectomy (~2003) History of hand surgery (~1958) History of surgery (~03/1995) S/P cataract extraction S/P inguinal hernia repair 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) [place] teeth removed Occupational Therapy Inpatient Evaluation/Re-Eval M1 OT IP Prior Functional Status Start: 07/16/25 16:25 Freq: Status: Active Protocol: Document 07/16/25 16:00 LESIA (Rec: 07/16/25 16:35 [id number]) Medical Review Prior Functional Status Medical History Yes Reviewed Diet/Fluid Regular Consistency Communication WNL Mobility and Gait Independent, no device, active in community Activities of Daily Independent, drives Living and IADL's Prior Functional still works with [employer] (Other details ) Social History Household Members spouse Living Arrangements House Number of Floors ( One Floor Floors) Number of Stairs To none Enter/Railing? 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 OT-IP Current Condition Start: 07/16/25 16:25 Freq: Status: Active Protocol: Document 07/16/25 16:00 LESIA (Rec: 07/16/25 16:35 [email or web address] [id number]) Occupational Therapy Current Condition Current Condition Evaluation Date 07/16/25 Treatment Diagnosis fall, s/p ORIF R hip, decreased self care Diagnosis Onset Date 07/13/25 Weight Bearing Status Weight Bearing Weight Bear as Tolerated Status M3 OT- IP Subjective and Pain Start: 07/16/25 16:25 Freq: Status: Active Protocol: Document 07/16/25 16:00 LESIA (Rec: 07/16/25 16:35 [facility] [id number]) OT- Subjective Occupational Therapy Visit Type Type Initial Evaluation Visit Start Time 16:00 Visit Stop Time 16:40 Notes Fred alexander, [id number]; [id number] Occupational Therapy Visit Comments Patient Comments Pt reclined in bed with spouse present and agreeable to OT eval. Patient/Caregiver To go home Goals OT Pain Assessment Pain When Pain Assessed After Treatment Pain Present Pain Present Denied Pain M4 OT- IP ADL's Start: 07/16/25 16:25 Freq: Status: Active Protocol: Document 07/16/25 16:00 LESIA (Rec: 07/16/25 16:35 [facility] [id number]) OT VBR-Fepb-Phuvsey Comments OT Self-Feeding not a meal time Comments OT ADL-Grooming General Evaluation Grooming Ability Standby Assistance Areas Needing Retrieving/Set-up of Grooming Items Assistance OT ADL-Oral Care General Eval Oral Care Ability Standby Assistance Areas of Assistance Retrieving/Set-Up of Items OT ADL-Dressing General Eval Lower Body Dressing Total Assistance Ability Areas Needing Socks Assistance Comments OT Dressing Comments Pt requires total A for socks. Pt not interested in learning LB AE, OT educated on how to don/doff her spouses socks as she was concerned about helping with this. OT ADL-Toileting General Evaluation Toileting Ability Contact Guard Assistance Devices Toileting Assistive Grab Bars Devices Comments OT Toileting OT discussed getting a toilet frame to assist at home Comments with tfs. OT ADL-Bathing Comments OT Bathing Comments not observed. OT recommends a shower chair for pts home walk in shower as well as grab bars. Based on pts description of bathroom suction cup grab bars would be sufficient. M5 OT- IP IADL's Start: 07/16/25 16:25 Freq: Status: Active Protocol: Document 07/16/25 16:00 LESIA (Rec: 07/16/25 16:35 [facility] [id number]) OT-Instrumental Activities of Daily Living Deficits IADL Deficits Deficits Identified Home Safety Awareness Awareness of Need Good Awareness for Assistance at Home Ability to Problem Able to Problem Solve Solve Emergency Situations Medication Management Medication No Deficits Identified Management Money Management Money Management No Deficits Identified Meal Preparation Meal Preparation No Deficits Identified Associate Biological Sales Associate Biological Sales No Deficits Identified Driving Driving Comments pts spouse can assist M6 OT- IP Functional Cognition Start: 07/16/25 16:25 Freq: Status: Active Protocol: Document 07/16/25 16:00 [facility] (Rec: 07/16/25 16:35 [facility] [id number]) Cognitive Factors Limiting Selfcare Function Cognitive Ability Level of Alertness Alert Patient Orientation Name,Age,Year,Day of Week,Place,Situation Attention Span Capable of Focused Attention,Capable of Sustained Ability Attention Ability to Follow Able to Follow One Step Commands,Able to Follow Multi- Commands Step Commands Memory Description No Deficits Noted Safety Awareness Underestimates Need for Assistance Problem Solving No deficits Noted Ability Executive Function No Deficits Noted Ability Abstract Thinking No Deficits Noted Ability OT- Vision and Hearing OT- Hearing Assessment OT- Hearing WFL Assessment OT- Vision Assessment Visual Acuity WFL,Glasses For Reading M7 OT- IP Mobility and Balance Start: 07/16/25 16:25 Freq: Status: Active Protocol: Document 07/16/25 16:00 [facility] (Rec: 07/16/25 16:35 [facility] [id number]) OT- Bed Mobility Assessment Supine to Sit Supine to Sit Assist Minimal Assistance Scooting Scooting to Edge of Standby Assistance Bed OT-Transfer Assessment Sit to and From Stand Sit to and from Contact Guard Assistance Stand Transfers Transfer Ability Contact Guard Assistance Technique Transfer Destination Toilet Transfer Technique Stand Step Pivot Devices Transfer Assistive Gait Belt,Front Wheeled Walker Devices Comments Mobility Comments Pt needs min A for R LE for sup>sit. Pt with good safety awareness during functional tfs with push up from and reaching for surface. OT- Gait Assessment Gait Gait Assistance Contact Guard Assist Required: Distance (Feet) 20 Assistive Devices Assistive Device Gait Belt,Front Wheeled Walker OT- Balance Assessment Sitting Balance and Reactions Static Sitting Normal Balance Ability Dynamic Sitting Good Balance Ability Standing Balance and Reactions Static Standing Good Balance Ability Dynamic Standing Good Balance Ability M8 OT- IP Objective Assessments Start: 07/16/25 16:25 Freq: Status: Active Protocol: Document 07/16/25 16:00 LESIA (Rec: 07/16/25 16:35 [facility] [id number]) OT Gross Range of Motion Upper Extremity Range of Motion Assessment Within Functional Limits OT Strength Upper Extremity Strength Assessment Within Functional Limits Hand Film Producer Strength Hand Dominance Right M9 OT- IP Assessment and Plan Start: 07/16/25 16:25 Freq: Status: Active Protocol: Document 07/16/25 16:00 LESIA (Rec: 07/16/25 16:35 [facility] [id number]) OT Summary Assessment and Plan Potential Rehabilitation Excellent Potential Analytic Complexity Low at Evaluation Summary OT Impairments Balance,Functional Mobility,Grooming,Dressing,Toileting ,Bathing,Toilet Transfers,Shower Transfers,Activity Tolerance Progress Towards Progressing Toward Goals Goals Assessment Summary Pt is an 80 yo M who fell from a ladder and landed on his R side resulting in a displaced R intertrochanteric fx s/p ORIF. 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 Pt presents with decreased BADLs, decreased functional mobility, and activity intolerance. Skilled OT services are appropriate to address these deficits and promote return to PLOF. Recommend dc home with outpatient PT. Goals Grooming Goal Independent Dressing Goal Independent,Regulatory Compliance Engineer,Sock Aid Toileting Goal Independent Bathing Goal Independent Toilet Transfer Goal Independent Shower Transfer Goal Independent Days to Meet Goals 5 Frequency of Treatment Other frequency 5x/wk Treatment Plan OT Treatment Plan ADL Training,Therapeutic Exercises,Patient/Family Education,Discharge Planning Discharge Recommendations OT Discharge Home,Outpatient PT Recommendations Transportation Needs Private Vehicle at Discharge
[2025-07-16 17:25] VITALS: BP 137/69; PULSE 75
[2025-07-16 17:28] VITALS: BP 137/69; PULSE 73; RESP 16; TEMP 36.9; O2SAT 97
[2025-07-16 19:00] VITALS: BP 120/77; PULSE 66; RESP 20; TEMP 36.4; O2SAT 94
[2025-07-16] MEDS: ATORVASTATIN 20 MG TABLET PO (20:52)
[2025-07-17 03:00] VITALS: BP 130/73; PULSE 60; RESP 20; TEMP 36.6; O2SAT 96
[2025-07-17] MEDS: ACETAMINOPHEN 325 MG TABLET 650 MG PO (05:18)
[2025-07-17] MEDS: PANTOPRAZOLE DR 20 MG TABLET PO (05:18)
--- NOTE | 2025-07-17 07:27 | PM.DS.IH.1 ---
History of Present Illness History of Present Illness Date Patient Seen: 07/17/25 Time Patient Seen: 07:27 Chief complaint: Fall from ladder Narrative: 80-year-old male patient of Dr. Davis with hypertension, aortic stenosis with bicuspid aortic valve, hyperlipidemia, BPH. Presented to ER following a fall from a ladder resulting in injury to his right side. 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 As he was falling toward the ground, he attempted to break his fall by extending his left hand, which caused him to rotate toward his right side. He subsequently hit the asphalt directly on his right side, causing significant pain in his hip. In the ER his CBC, CMP, UA were all normal. X-ray imaging of pelvis and right femur both demonstrated displaced right intertrochanteric fracture. Orthopedics was consulted and recommend admission with plan for operative fixation tomorrow morning. {from Dr. Leon's H&P 07/13/25} Discharge Providers Provider Date of admission: 07/13/25 15:15 Discharge Date: 07/17/25 Primary care physician: Meet Davis MD Consults: 07/13/25 17:57 Consult to Physical Therapy Evaluate & Treat Comment: Physician Instructions: Evaluate and Treat 07/14/25 16:48 Consult to Discharge Planning Routine Comment: Consult to Occupational Therapy Evaluate & Treat Comment: Physician Instructions: Evaluate and treat Consult to Physical Therapy Evaluate & Treat Comment: Physician Instructions: Evaluate and Treat 07/16/25 07:47 Consult to Orthopedic Surgery Routine Comment: Consulting Provider: Brittani Palafox Reason for consultation: s/p fixation intertroch fx Has provider been notified: Yes 07/16/25 15:47 Consult to Physical Therapy Evaluate & Treat Comment: R Femur Fx with repair Physician Instructions: Set up FWW for home use at discharge Discharge provider: Meet Davis MD Summary Hospital Course Discharge Diagnosis: 1. Fall from ladder resulting in right intertrochanteric femur fracture 2. Status post ORIF right intertrochanteric femur fracture 3. Hypertension 4. Hyperlipidemia 5. Bicuspid aortic valve Hospital Course: As above patient was admitted to the hospital after falling and presenting to the ER. He had his hip fracture repair by Orthopedic surgery on the 14 of July. He had an uneventful postoperative course was able to be up and about in a very limited fashion with very limited amount of pain. He was felt to be stable enough to be able to return home with assistance He will continue with outpatient physical therapy He will continue on aspirin b.i.d. for VTE prophylaxis as per Orthopedic surgery for the next 2 weeks 2 week follow-up with ortho and a one-month follow-up with PCP Status at Discharge Cognitive/behavioral status at discharge: at baseline, oriented Functional status at discharge: uses cane/walker Overall status at discharge: patient is progressing back to baseline Time Spent with Patient Time spent: Less than 30 minutes Exam Vital Signs (past 8 hours): - 07/17/25 03:00 Temperature 97.9 F Pulse Rate 60 Respiratory Rate 20 Blood Pressure 130/73 Pulse Oximetry 96 Oxygen Flow Rate 0 Oxygen Delivery Method Room Air Oxygen Flow Rate 0 Objective Labs 07/15/25 05:20 07/15/25 05:20 [facility] Medical History Moderate aortic stenosis Bicuspid aortic valve BPH w urinary obs/LUTS Elevated liver enzymes HTN (hypertension) Schatzki's ring (~01/2021) Vision disorder Shoulder pain (~2017) Elevated PSA (~2012) Mixed hyperlipidemia History of adenomatous polyp of colon Essential hypertension (~2000) History of kidney stones Finger amputation, no complication Surgical History S/P cataract extraction [place] teeth removed 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) Anesthesia History of hand surgery (~1958) History of surgery (~03/1995) S/P inguinal hernia repair History of cholecystectomy (~2003) Family History Father Congestive heart failure Mother Congestive heart failure Social History marital status: household members: spouse pets and animals: No current occupational exposures/hazards: No special maru needs: No travel history: over 6 months ago leisure activities: exercise, music and other seatbelt use: always water heater temp set < 120 deg: Yes working smoke detector in home: Yes fire extinguisher in home: Yes carbon monox detector in home: Yes firearms in home: Yes firearms unloaded and locked: Yes do you feel safe at home: Yes second hand exposure: No alcohol intake: never substance use type: does not use during the past year weight has: remained stable well-balanced diet: daily or most days daily servings fruits/ve-4 caffeine: No eating out: 1-3 times/week Type(s) of exercise: walking and regular exercise Discharge Assessment & Plan Assessment and Plan Plan of Treatment: Outpatient physical therapy Aspirin 81 mg b.i.d. for VTE prophylaxis 2 week follow-up with Dr. Palafox orthopedic surgery Discharge Plan Discharge Plan Patient Disposition: Home Discharge orders & Medications Prescriptions: New aspirin 81 mg Tablet,Delayed Release (Dr/Ec) 81 mg PO BID Qty: 28 0RF Rx Instructions: 2 weeks Continued multivitamin Tablet 1 tab PO DAILY Qty: 0 rosuvastatin 10 mg tablet 10 mg PO QPM Qty: 90 3RF amlodipine 5 mg tablet 5 mg PO QPM Qty: 90 3RF lisinopril 40 mg tablet 40 mg PO QPM Qty: 90 3RF omeprazole 20 mg capsule,delayed release(DR/EC) 20 mg PO Q OTHER DAY Qty: 45 2RF hydrochlorothiazide 12.5 mg tablet 12.5 mg PO DAILY Qty: 90 3RF ascorbic acid (vitamin C) 1,000 mg tablet 1 g PO DAILY glucosamine [id number] 1 tab PO DAILY turmeric-turmeric root extract 450-50 mg Capsule 1 cap PO BID Fish Oil 900-1,400 mg Capsule,Delayed Release(Dr/Ec) 1 cap PO DAILY Qty: 0 Collagen capsule 2,000 mg PO BID cholecalciferol (vitamin D3) [Vitamin D3] 1,000 unit Capsule 1,000 unit PO DAILY coenzyme Q10 [CoQ-10] 100 mg Capsule 300 mg PO DAILY Qty: 0 Follow up/Referrals: [facility] [place] [Provider Group] Referral Note: Post op ORIF R intertrochanteric femur fx and repair 07/14/2025 Meet Davis MD [Primary Care Provider, Internal Medicine] - 1 Month Brittani Palafox DO [Physician, Orthopedic Surgery] - 2 Weeks Discharge Health Status Multidrug resistant organism: No MDRO Diet/Activity/Treatments Diet: Diet as Tolerated Skin/Wound/Dressing Care Report to your healthcare provider any signs of infection, such as:: chills, fever, increased pain, unusual drainage and unusual redness Visit Report/Discharge Packet Stand Alone Forms: Patient Portal/API, Surgery Discharge Discharge Data Primary Care Provider: Meet Davis VTE Deep Vein Thrombosis/Pulmonary Embolism Present on Admission: No IH PROFEE Charge Codes Discharge inpatient/observation: [id number]
[2025-07-17 08:00] VITALS: BP 147/93; PULSE 64; RESP 18; TEMP 36.5; O2SAT 95
--- NOTE | 2025-07-17 09:04 | PM.PNPO.1 ---
Subjective Subjective Date Patient Seen: 07/17/25 Time Patient Seen: 09:04 Interval history: Paul is a very pleasant 80-year-old male status post right hip cephalomedullary nail by Dr. Palafox POD# 3. This morning he reports he is doing He reports that his pain is well-controlled. He has been ambulating w/ PT, has not yet met w/ them today though. 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 He denies chest pain, shortness of breath, nausea or vomiting. Exam Vital Signs (past 8 hours): - 07/17/25 03:00 07/17/25 08:00 Temperature 97.9 F 97.7 F Pulse Rate 60 64 Respiratory Rate 20 18 Blood Pressure 130/73 147/93 H Pulse Oximetry 96 95 Oxygen Flow Rate 0 0 Oxygen Delivery Method Room Air Oxygen Flow Rate 0 Narrative Exam Narrative: Patient sitting comfortably in bedside chair during our interview today. No acute distress. AOx3. 5/5 strength with DF, PF, EHL bilaterally. Gross sensation intact throughout bilateral lower extremities. Calves soft and non-tender bilaterally. Brisk capillary refill, pulses intact. Post-surgical dressing clean, dry and intact over the right hip/thigh without drainainge. Const General: cooperative, healthy appearing and comfortable Objective Labs 07/15/25 05:20 07/15/25 05:20 Labs: Laboratory Results - last 24 hr 07/17/25 07:36 POC Whole Bld Glucose 174 H PFSH Medical History Moderate aortic stenosis Bicuspid aortic valve BPH w urinary obs/LUTS Elevated liver enzymes HTN (hypertension) Schatzki's ring (~01/2021) Vision disorder Shoulder pain (~2017) Elevated PSA (~2012) Mixed hyperlipidemia History of adenomatous polyp of colon Essential hypertension (~2000) History of kidney stones Finger amputation, no complication Surgical History S/P cataract extraction [place] teeth removed 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) Anesthesia History of hand surgery (~1958) History of surgery (~03/1995) S/P inguinal hernia repair History of cholecystectomy (~2003) Family History Father Congestive heart failure Mother Congestive heart failure Social History marital status: household members: spouse pets and animals: No current occupational exposures/hazards: No special maru needs: No travel history: over 6 months ago leisure activities: exercise, music and other seatbelt use: always water heater temp set < 120 deg: Yes working smoke detector in home: Yes fire extinguisher in home: Yes carbon monox detector in home: Yes firearms in home: Yes firearms unloaded and locked: Yes do you feel safe at home: Yes second hand exposure: No alcohol intake: never substance use type: does not use during the past year weight has: remained stable well-balanced diet: daily or most days daily servings fruits/ve-4 caffeine: No eating out: 1-3 times/week Type(s) of exercise: walking and regular exercise Assessment & Plan Post-op Postoperative Procedures: Procedures Operation Date: 07/14/25 10:15 Actual Procedure Side Surgeon p Intramedullary Nailing Femur Right Brittani Palafox, Postoperative day: 3 Postoperative status: doing well Postoperative status narrative: Stable status post right hip IM nail Postoperative plan: routine post-op care Postoperative plan narrative: 1) Plan to discharge to home today with . PT before d/c today if possible. 2) Continue multimodal pain management with ice to the hip for additional pain control. 3) ASA b.i.d. for DVT prophylaxis. 4) Start outpatient physical therapy to work on range of motion and mobility. He tells me he has appts set up at [facility] for this. 5) Keep dressing intact, clean, dry until 2 week postop appointment. No soaking the incision site in pools or tubs. No topical ointments or creams to the incision site. 6) Follow up at [facility] in 2 weeks for a postop appointment and wound check. All patient's questions were answered, they demonstrates understanding and are in agreement with the plan. Call our office if any questions or concerns arise. Time Spent With Patient Time with patient: less than 15 minutes Quality VTE Deep Vein Thrombosis/Pulmonary Embolism Present on Admission: No
[2025-07-17] MEDS: FERROUS SULFATE 325 MG TABLET PO (09:11)
[2025-07-17] MEDS: ASPIRIN EC 81 MG TABLET PO (09:11)
[2025-07-17] MEDS: MELOXICAM 7.5 MG TABLET 15 MG PO (09:12)
[2025-07-17] MEDS: DOCUSATE 100 MG CAPSULE PO (09:12)
--- NOTE | 2025-07-17 12:19 | PC.NURSE ---
Pt discharged home at 1205, escorted off floor in wheelchair accompanied by spouse and hospital staff. IV removed, discharge teaching completed including new medications, wound care and follow up appointments. Patient left the floor with all belongings.
== END 2025-07-17 12:21 | disposition home or self-care (01) | DRG 482 ==
LOC: ED 14:34 → AC 15:17
PROVIDERS: Orthopaedic Surgery; Admitting Provider Family Medicine; Emergency Provider Physician Assistant; PCP Internal Medicine; Referring Provider Physician Assistant; Visit Provider Internal Medicine
PROC: 0QS606Z Reposition Right Upper Femur with Intramedullary Internal Fixation Device, Open Approach (ICD-10-PCS; CPT 27245; principal; 2025-07-14 10:15)
DX: S72.141A Displaced intertrochanteric fracture of right femur, initial encounter for closed fracture (principal); I10 Essential (primary) hypertension; I35.0 Nonrheumatic aortic (valve) stenosis; E78.2 Mixed hyperlipidemia; W11.XXXA Fall on and from ladder, initial encounter; Y92.89 Other specified places as the place of occurrence of the external cause; Y99.0 Civilian activity done for income or pay
CPT/HCPCS: 27245; 36415; 71045; 72170; 73502; 73552; 76000; 80048; 80053; 81003; 81015; 82962; 85025; 85610; 85730; 87086; 93005; 94762; 96374; 97110; 97162; 97165; 97530; 99222; 99232; 99233; 99238; 99284; C1713; J0330; J0689; J1100; J1171; J1885; J2272; J2405; J2704; J3010; J7050; J7120